=== PATIENT | female | born 1945 | race Caucasian/White ===

== ENCOUNTER 2018-09-10 18:26 | Emergency (ER) | payer MEDICARE, BC, SELFPAY ==
--- NOTE | 2018-09-10 18:50 | DI.RAD.S_ITS ---
PROCEDURE: XR ELBOW RT MIN 3V INDICATIONS: injury, pain TECHNIQUE: 3 views of the elbow were acquired. COMPARISON: None. FINDINGS: Bones: No fractures or dislocations. No suspicious bony lesions. Soft tissues: There is a small elbow joint effusion with elevation of the anterior fat pad. IMPRESSION: Small elbow joint effusion. No definite fracture is visualized. If pain persists, repeat study in 5-7 days is recommended to exclude occult fracture. Dictated by: Iris Scott M.D. on 09/10/2018 at 19:17 Approved by: Iris Scott M.D. on 09/10/2018 at 19:19
[2018-09-10 18:51] VITALS: BP 126/59; PULSE 87; RESP 18; TEMP 36.8; O2SAT 97
--- NOTE | 2018-09-10 18:51 | DI.RAD.S_ITS ---
PROCEDURE: XR HUMERUS RT 2V INDICATIONS: injury, pain TECHNIQUE: 2 views of the humerus were acquired. COMPARISON: None. FINDINGS: Bones: No fractures or dislocations. No suspicious bony lesions. Soft tissues: No suspicious soft tissue calcifications. IMPRESSION: No acute radiographic findings. If pain persists, repeat study in 5-7 days is recommended to exclude occult fracture. Dictated by: Iris Scott M.D. on 09/10/2018 at 19:16 Approved by: Iris Scott M.D. on 09/10/2018 at 19:17
--- NOTE | 2018-09-10 19:09 | ED.EXTPRO ---
HPI - Extremity Problem <ADELIA Aguillon - Last Filed: 09/10/18 21:59> General Chief complaint: Extremity Problem,Nontraumatic Stated complaint: thinks she broke her right arm Time Seen by Provider: 09/10/18 18:52 Source: patient Mode of arrival: ambulatory Limitations: no limitations History of Present Illness HPI Narrative: 72-year-old female with a history of hypertension is everyday smoker here for complaint of pain to her right arm. Pain is to the upper arm to the elbow and the wrist. She states that she was lifting a dog up into the truck when she accidentally slipped causing her to land up against the side of the cab of the truck onto her left arm. Increased pain with movement of the right arm. She denies any other injuries or concerns. MD Complaint: extremity pain Related Data Home Medications Medication Instructions Recorded Confirmed alprazolam 0.5 mg tablet 0.5 mg PO ONCE PRN 02/22/18 02/22/18 fluticasone 100 mcg-salmeterol 50 See Label Instructions INHALATION 02/22/18 02/22/18 mcg/dose blistr powdr for BID inhalation ipratropium 20 mcg-albuterol 100 1 puff INHALATION ONCE PRN gram 02/22/18 02/22/18 mcg/actuation mist for inhalation losartan 50 mg tablet 50 mg PO DAILY 02/22/18 02/22/18 metoprolol succinate ER 25 mg 25 mg PO BID tab 02/22/18 02/22/18 tablet,extended release 24 hr sertraline 100 mg tablet 100 mg PO DAILY 02/22/18 02/22/18 simvastatin 10 mg tablet 10 mg PO QPM 02/22/18 02/22/18 Allergies Allergy/AdvReac Type Severity Reaction Status Date / Time ciprofloxacin [From Cipro] Allergy Verified 09/10/18 18:54 meperidine [From Demerol] Allergy Verified 09/10/18 18:54 Review of Systems <ADELIA Aguillon - Last Filed: 09/10/18 21:59> Constitutional Denies chills, Denies fever(s), Denies lethargy and Denies weakness Eyes Denies change in vision, Denies eye discharge, Denies irritation and Denies loss of vision ENT Ears, Nose, Mouth, and Throat: Denies change in voice, Denies neck pain and Denies sore throat Cardiovascular Denies chest pain, Denies irregular heart rhythm, Denies lightheadedness, Denies palpitations, Denies dyspnea, Denies dyspnea on exertion and Denies orthopnea Respiratory Denies cough, Denies dyspnea, Denies dyspnea on exertion and Denies wheezing Gastrointestinal Gastrointestinal: Denies abdominal pain, Denies change in bowel habits, Denies diarrhea, Denies nausea and Denies vomiting Genitourinary Denies hematuria, Denies flank pain, Denies urinary incontinence and Denies urinary urgency Musculoskeletal Denies neck pain Comments: Right arm pain Integumentary/Breasts Denies pruritus, Denies erythema, Denies rash and Denies wounds Neurologic Denies confusion, Denies loss of vision and Denies weakness Psychiatric Denies anxiety, Denies confusion, Denies depression, Denies homicidal ideation and Denies suicidal ideation Endocrine Denies palpitations Hematologic/Lymphatic Denies easy bruising Allergic/Immunologic Denies wheezing Exam <ADELIA Aguillon - Last Filed: 09/10/18 21:59> Initial Vital Signs Initial Vital Signs: Vital Signs Temperature 98.2 F 09/10/18 18:51 Pulse Rate 87 09/10/18 18:51 Respiratory Rate 18 09/10/18 18:51 Blood Pressure 126/59 L 09/10/18 18:51 Pulse Oximetry 97 09/10/18 18:51 Const General: cooperative and well developed Nutritional Appearance: well nourished Orientation: alert, awake, oriented x3 and not confused [facility] Mouth: oral mucosae normal and moist mucous membranes Eyes Conjunctivae: conjunctivae normal Sclera: sclerae normal Pupils: PERRL EOM: EOM intact bilaterally Resp Effort & Inspection: normal respiratory effort, able to speak in complete sentences, no respiratory distress and no use of accessory muscles Auscultation: clear to auscultation bilaterally, no rales, no rhonchi and no wheezes Cardio Rate: regular rate Rhythm: regular rhythm Heart Sounds: no click, no gallops, no murmurs and no rubs Pulses: normal peripheral pulses Skin General: no rashes or lesions noted, No jaundice and No petechiae Neuro General: alert, oriented x3, gait normal and no focal motor deficits Speech: speech normal Extrem Other: Right arm with no signs of trauma. No swelling. No ecchymosis. No open lesions. Distal sensation is intact. Distal pulses are intact. Distal range of motion is intact. <DO Yumiko Hardy Last Filed: 09/10/18 23:35> Initial Vital Signs Initial Vital Signs: Vital Signs Temperature 98.2 F 09/10/18 18:51 Pulse Rate 87 09/10/18 18:51 Respiratory Rate 18 09/10/18 18:51 Blood Pressure 126/59 L 09/10/18 18:51 Pulse Oximetry 97 09/10/18 18:51 Course <ADELIA Aguillon - Last Filed: 09/10/18 21:59> Orders Ordered: ED Orders 09/10/18 18:50 XR elbow RT min 3V Stat 09/10/18 18:51 XR humerus RT 2V Stat 09/10/18 19:26 XR wrist RT 2V Stat Vital Signs - 8 hr 09/10/18 18:51 09/10/18 20:33 Temperature 98.2 F Pulse Rate 87 85 Respiratory Rate 18 18 Blood Pressure 126/59 L Blood Pressure [Left Arm] 139/68 Pulse Oximetry 97 96 <DO Yumiko Hardy Last Filed: 09/10/18 23:35> Orders Ordered: ED Orders 09/10/18 18:50 XR elbow RT min 3V Stat 09/10/18 18:51 XR humerus RT 2V Stat 09/10/18 19:26 XR wrist RT 2V Stat Vital Signs - 8 hr 09/10/18 18:51 09/10/18 20:33 Temperature 98.2 F Pulse Rate 87 85 Respiratory Rate 18 18 Blood Pressure 126/59 L Blood Pressure [Left Arm] 139/68 Pulse Oximetry 97 96 MDM - Extremity (Nontraumatic) <ADELIA Aguillon - Last Filed: 09/10/18 21:59> Imaging Data Humerus: Radiologist's impression: [address] [address] XRay Report Signed Patient: Mary Payan MR#: [id number] : 1945 Acct:[id number] Age/Sex: 72 / F Date of Service: 09/10/18 Loc: ED Accession Number: [id number] Procedure: XR humerus RT 2V Ordering Provider: Hawk Shea D.O. PROCEDURE: XR HUMERUS RT 2V INDICATIONS: injury, pain TECHNIQUE: 2 views of the humerus were acquired. COMPARISON: None. FINDINGS: Bones: No fractures or dislocations. No suspicious bony lesions. Soft tissues: No suspicious soft tissue calcifications. IMPRESSION: No acute radiographic findings. If pain persists, repeat study in 5-7 days is recommended to exclude occult fracture. Dictated by: Iris Scott M.D. on 09/10/2018 at 19:16 Approved by: Iris Scott M.D. on 09/10/2018 at 19:17 Right elbow : Radiologist's impression: [address] [address] XRay Report Signed Patient: Mary Payan MR#: [id number] : 1945 Acct:[id number] Age/Sex: 72 / F Date of Service: 09/10/18 Loc: ED Accession Number: [id number] Procedure: XR elbow RT min 3V Ordering Provider: Hawk Shea D.O. PROCEDURE: XR ELBOW RT MIN 3V INDICATIONS: injury, pain TECHNIQUE: 3 views of the elbow were acquired. COMPARISON: None. FINDINGS: Bones: No fractures or dislocations. No suspicious bony lesions. Soft tissues: There is a small elbow joint effusion with elevation of the anterior fat pad. IMPRESSION: Small elbow joint effusion. No definite fracture is visualized. If pain persists, repeat study in 5-7 days is recommended to exclude occult fracture. Dictated by: Iris Scott M.D. on 09/10/2018 at 19:17 Approved by: Iris Scott M.D. on 09/10/2018 at 19:19 [facility] Narrative Medical decision making narrative: X-ray of the right humerus. right elbow and right wrist were obtained and were negative for any acute fractures. Signs and symptoms presents as contusion to the right arm. [id number] Tylenol or Motrin as needed for any discomfort. Follow up with primary care provider in the next couple days. Return emergency room for any worsening symptoms. Discharge Plan Departure Patient Disposition: Home Clinical Impression: Arm pain, right Discharge Date/Time: 09/10/18 20:46 Interventions: ED Discharge Assessment Last Done: 09/10/18 20:46 Instructions: DI for Contusion Activity Restrictions/Additional Instructions: X-ray of the right humerus. right elbow and right wrist were obtained and were negative for any acute fractures. Signs and symptoms presents as contusion to the right arm. [id number] Tylenol or Motrin as needed for any discomfort. Follow up with primary care provider in the next couple days. Return emergency room for any worsening symptoms. Prescriptions: No Action losartan 50 mg tablet 50 mg PO DAILY RF: 0 sertraline 100 mg tablet 100 mg PO DAILY RF: 0 simvastatin 10 mg tablet 10 mg PO QPM RF: 0 alprazolam 0.5 mg tablet 0.5 mg PO ONCE PRN (Reason: Anxiety) RF: 0 metoprolol succinate 25 mg tablet extended release 24 hr 25 mg PO BID RF: 0 ipratropium-albuterol [Combivent Respimat] 20-100 mcg/actuation mist 1 puff INHALATION ONCE PRN (Reason: asthma) RF: 0 fluticasone-salmeterol [Advair Diskus] 100-50 mcg/dose blister with device See Patient Comments INHALATION BID RF: 0 Referrals: [facility] [Provider Group] <Hawk Shea DO - Last Filed: 09/10/18 23:35> [facility] ED Attending Shawna Attestation: I was immediately available in the department for consultation. Documentation has been reviewed. I agree with assessment and plan.
--- NOTE | 2018-09-10 19:26 | DI.RAD.S_ITS ---
PROCEDURE: XR WRIST RT 2V INDICATIONS: Pain to right wrist after slip TECHNIQUE: 2 views of the wrist were acquired. COMPARISON: None. FINDINGS: Bones: No fractures or dislocations. No suspicious bony lesions. There is an old non-unified ulnar styloid fracture or accessory ossicle. Soft tissues: No suspicious soft tissue calcifications. IMPRESSION: No acute radiographic findings. If pain persists, repeat study in 5-7 days is recommended to exclude occult fracture. Dictated by: Iris Scott M.D. on 09/10/2018 at 20:05 Approved by: Iris Scott M.D. on 09/10/2018 at 20:06
--- NOTE | 2018-09-10 20:16 | ED_ITS ---
HPI - Extremity Problem <ADELIA Aguillon - Last Filed: 09/10/18 21:59> General Chief complaint: Extremity Problem,Nontraumatic Stated complaint: thinks she broke her right arm Time Seen by Provider: 09/10/18 18:52 Source: patient Mode of arrival: ambulatory Limitations: no limitations History of Present Illness HPI Narrative: 72-year-old female with a history of hypertension is everyday smoker here for complaint of pain to her right arm. Pain is to the upper arm to the elbow and the wrist. She states that she was lifting a dog up into the truck when she accidentally slipped causing her to land up against the side of the cab of the truck onto her left arm. Increased pain with movement of the right arm. She denies any other injuries or concerns. MD Complaint: extremity pain Related Data Home Medications Medication Instructions Recorded Confirmed alprazolam 0.5 mg tablet 0.5 mg PO ONCE PRN 02/22/18 02/22/18 fluticasone 100 mcg-salmeterol 50 See Label Instructions INHALATION 02/22/18 mcg/dose blistr powdr for BID inhalation ipratropium 20 mcg-albuterol 100 1 puff INHALATION ONCE PRN gram 02/22/1802/22 mcg/actuation mist for inhalation losartan 50 mg tablet 50 mg PO DAILY 02/22/18 02/22/18 metoprolol succinate ER 25 mg 25 mg PO BID tab 02/22/18 02/22/18 tablet,extended release 24 hr sertraline 100 mg tablet 100 mg PO DAILY 02/22/18 02/22/18 simvastatin 10 mg tablet 10 mg PO QPM 02/22/18 02/22/18 Allergies Allergy/AdvReac Type Severity Reaction Status Date / Time ciprofloxacin [From Cipro] Allergy Verified 09/10/18 18:54 meperidine [From Demerol] Allergy Verified 09/10/18 18:54 Review of Systems <ADELIA Aguillon - Last Filed: 09/10/18 21:59> Constitutional Denies chills, Denies fever(s), Denies lethargy and Denies weakness Eyes Denies change in vision, Denies eye discharge, Denies irritation and Denies loss of vision ENT Ears, Nose, Mouth, and Throat: Denies change in voice, Denies neck pain and Denies sore throat Cardiovascular Denies chest pain, Denies irregular heart rhythm, Denies lightheadedness, Denies palpitations, Denies dyspnea, Denies dyspnea on exertion and Denies orthopnea Respiratory Denies cough, Denies dyspnea, Denies dyspnea on exertion and Denies wheezing Gastrointestinal Gastrointestinal: Denies abdominal pain, Denies change in bowel habits, Denies diarrhea, Denies nausea and Denies vomiting Genitourinary Denies hematuria, Denies flank pain, Denies urinary incontinence and Denies urinary urgency Musculoskeletal Denies neck pain Comments: Right arm pain Integumentary/Breasts Denies pruritus, Denies erythema, Denies rash and Denies wounds Neurologic Denies confusion, Denies loss of vision and Denies weakness Psychiatric Denies anxiety, Denies confusion, Denies depression, Denies homicidal ideation and Denies suicidal ideation Endocrine Denies palpitations Hematologic/Lymphatic Denies easy bruising Allergic/Immunologic Denies wheezing Exam <ADELIA Aguillon - Last Filed: 09/10/18 21:59> Initial Vital Signs Initial Vital Signs: Vital Signs Temperature 98.2 F 09/10/18 18:51 Pulse Rate 87 09/10/18 18:51 Respiratory Rate 18 09/10/18 18:51 Blood Pressure 126/59 L 09/10/18 18:51 Pulse Oximetry 97 09/10/18 18:51 Const General: cooperative and well developed Nutritional Appearance: well nourished Orientation: alert, awake, oriented x3 and not confused [facility] Mouth: oral mucosae normal and moist mucous membranes Eyes Conjunctivae: conjunctivae normal Sclera: sclerae normal Pupils: PERRL EOM: EOM intact bilaterally Resp Effort & Inspection: normal respiratory effort, able to speak in complete sentences, no respiratory distress and no use of accessory muscles Auscultation: clear to auscultation bilaterally, no rales, no rhonchi and no wheezes Cardio Rate: regular rate Rhythm: regular rhythm Heart Sounds: no click, no gallops, no murmurs and no rubs Pulses: normal peripheral pulses Skin General: no rashes or lesions noted, No jaundice and No petechiae Neuro General: alert, oriented x3, gait normal and no focal motor deficits Speech: speech normal Extrem Other: Right arm with no signs of trauma. No swelling. No ecchymosis. No open lesions. Distal sensation is intact. Distal pulses are intact. Distal range of motion is intact. <DO Yumiko Hardy Last Filed: 09/10/18 23:35> Initial Vital Signs Initial Vital Signs: Vital Signs Temperature 98.2 F 09/10/18 18:51 Pulse Rate 87 09/10/18 18:51 Respiratory Rate 18 09/10/18 18:51 Blood Pressure 126/59 L 09/10/18 18:51 Pulse Oximetry 97 09/10/18 18:51 Course <ADELIA Aguillon - Last Filed: 09/10/18 21:59> Orders Ordered: ED Orders 09/10/18 18:50 XR elbow RT min 3V Stat 09/10/18 18:51 XR humerus RT 2V Stat 09/10/18 19:26 XR wrist RT 2V Stat Vital Signs - 8 hr 09/10/18 18:51 09/10/18 20:33 Temperature 98.2 F Pulse Rate 87 85 Respiratory Rate 18 18 Blood Pressure 126/59 L Blood Pressure [Left Arm] 139/68 Pulse Oximetry 97 96 <DO Yumiko Hardy Last Filed: 09/10/18 23:35> Orders Ordered: ED Orders 09/10/18 18:50 XR elbow RT min 3V Stat 09/10/18 18:51 XR humerus RT 2V Stat 09/10/18 19:26 XR wrist RT 2V Stat Vital Signs - 8 hr 09/10/18 18:51 09/10/18 20:33 Temperature 98.2 F Pulse Rate 87 85 Respiratory Rate 18 18 Blood Pressure 126/59 L Blood Pressure [Left Arm] 139/68 Pulse Oximetry 97 96 MDM - Extremity (Nontraumatic) <ADELIA Aguillon - Last Filed: 09/10/18 21:59> Imaging Data Humerus: Radiologist's impression: [address] [address] XRay Report Signed Patient: Mary Payan MR#: [id number] : 1945 Acct:[id number] Age/Sex: 72 / F Date of Service: 09/10/18 Loc: ED Accession Number: [id number] Procedure: XR humerus RT 2V Ordering Provider: Hawk Shea D.O. PROCEDURE: XR HUMERUS RT 2V INDICATIONS: injury, pain TECHNIQUE: 2 views of the humerus were acquired. COMPARISON: None. FINDINGS: Bones: No fractures or dislocations. No suspicious bony lesions. Soft tissues: No suspicious soft tissue calcifications. IMPRESSION: No acute radiographic findings. If pain persists, repeat study in 5-7 days is recommended to exclude occult fracture. Dictated by: Iris Scott M.D. on 09/10/2018 at 19:16 Approved by: Iris Scott M.D. on 09/10/2018 at 19:17 Right elbow : Radiologist's impression: [address] [address] XRay Report Signed Patient: Mary Payan MR#: [id number] : 1945 Acct:[id number] Age/Sex: 72 / F Date of Service: 09/10/18 Loc: ED Accession Number: [id number] Procedure: XR elbow RT min 3V Ordering Provider: Hawk Shea D.O. PROCEDURE: XR ELBOW RT MIN 3V INDICATIONS: injury, pain TECHNIQUE: 3 views of the elbow were acquired. COMPARISON: None. FINDINGS: Bones: No fractures or dislocations. No suspicious bony lesions. Soft tissues: There is a small elbow joint effusion with elevation of the anterior fat pad. IMPRESSION: Small elbow joint effusion. No definite fracture is visualized. If pain persists, repeat study in 5-7 days is recommended to exclude occult fracture. Dictated by: Iris Scott M.D. on 09/10/2018 at 19:17 Approved by: Iris Scott M.D. on 09/10/2018 at 19:19 [facility] Narrative Medical decision making narrative: X-ray of the right humerus. right elbow and right wrist were obtained and were negative for any acute fractures. Signs and symptoms presents as contusion to the right arm. Ovru-pbq-nrizczp Tylenol or Motrin as needed for any discomfort. Follow up with primary care provider in the next couple days. Return emergency room for any worsening symptoms. Discharge Plan Departure Patient Disposition: Home Clinical Impression: Arm pain, right Discharge Date/Time: 09/10/18 20:46 Interventions: ED Discharge Assessment Last Done: 09/10/18 20:46 Instructions: DI for Contusion Activity Restrictions/Additional Instructions: X-ray of the right humerus. right elbow and right wrist were obtained and were negative for any acute fractures. Signs and symptoms presents as contusion to the right arm. Rrfs-idj-eyoveek Tylenol or Motrin as needed for any discomfort. Follow up with primary care provider in the next couple days. Return emergency room for any worsening symptoms. Prescriptions: No Action losartan 50 mg tablet 50 mg PO DAILY RF: 0 sertraline 100 mg tablet 100 mg PO DAILY RF: 0 simvastatin 10 mg tablet 10 mg PO QPM RF: 0 alprazolam 0.5 mg tablet 0.5 mg PO ONCE PRN (Reason: Anxiety) RF: 0 metoprolol succinate 25 mg tablet extended release 24 hr 25 mg PO BID RF: 0 ipratropium-albuterol [Combivent Respimat] 20-100 mcg/actuation mist 1 puff INHALATION ONCE PRN (Reason: asthma) RF: 0 fluticasone-salmeterol [Advair Diskus] 100-50 mcg/dose blister with device See Patient Comments INHALATION BID RF: 0 Referrals: [facility] [Provider Group] <Hawk Shea DO - Last Filed: 09/10/18 23:35> [facility] ED Attending Shawna Attestation: I was immediately available in the department for consultation. Documentation has been reviewed. I agree with assessment and plan.
[2018-09-10 20:33] VITALS: BP 139/68; PULSE 85; RESP 18; O2SAT 96
== END 2018-09-10 20:46 | disposition home or self-care (01) ==
PROVIDERS: Emergency Provider Nurse Practitioner Family
DX: M79.601 Pain in right arm (principal); W19.XXXA Unspecified fall, initial encounter
CPT/HCPCS: 73060; 73080; 73100; 99282; 99283

== ENCOUNTER 2018-10-21 10:45 | Emergency (ER) | payer MEDICARE, BC, SELFPAY ==
[2018-10-21 11:02] VITALS: BP 165/66; PULSE 76; RESP 16; TEMP 36.6; O2SAT 95; BMI 28.1
--- NOTE | 2018-10-21 11:47 | DI.CT.S_ITS ---
PROCEDURE: CT ABDOMEN PELVIS W CON INDICATIONS: has ileostomy, having new diarrhea 1/2 cup rectally, abd theodore TECHNIQUE: After the administration of oral and intravenous contrast, 5 mm thick sections acquired from the diaphragms to the symphysis. 5 mm thick coronal and sagittal reformats were performed. For radiation dose reduction, the following was used: automated exposure control, adjustment of mA and/or kV according to patient size. COMPARISON: None. FINDINGS: Image quality: Excellent. ABDOMEN: Lung bases: Lung bases are clear. Heart size is normal. Solid organs: Liver is normal in size and enhancement. Gallbladder is surgically absent.. Biliary system is non-dilated. Pancreas enhances normally. Spleen is normal in size and enhancement. No adrenal nodules. Kidneys are normal in size and enhancement, without hydronephrosis. Peritoneum and bowel: Stomach, small bowel, and colon loops are normal in caliber and wall thickness. There is sigmoid diverticulosis without evidence of diverticulitis. No free fluid or air. No abscess cavity. Nodes and vessels: No retroperitoneal or mesenteric adenopathy. Aorta and inferior vena cava are normal in caliber. Miscellaneous: There is a midline ventral hernia approximately 5 cm above the umbilicus containing bowel. The bowel is nonobstructive. The abdominal wall defect measures approximately 3.5 cm. There is also a small periumbilical hernia containing fat, with no abdominal wall defect measuring 1.5 cm. There is an ileostomy present. Deep to the ileostomy is abdominal wall defect measuring 3.7 cm, with numerous loops of small bowel herniated through the defect into the subcutaneous tissues. These are also nonobstructive. PELVIS: Genitourinary: Bladder wall thickness is normal. Miscellaneous: No inguinal hernias or adenopathy. Remote hysterectomy. Bones: No suspicious bony lesions. No vertebral body compression fractures. IMPRESSION: 1. Midline ventral hernia containing small bowel which is nonobstructed, approximately 5 cm above the umbilicus. 2. Small periumbilical hernia containing fat. 3. Ileostomy in place. Deep to the ileostomy are extensive nonobstructed loops of small bowel which have herniated through a left abdominal wall defect. 4. Sigmoid diverticulosis without evidence of diverticulitis. 5. Remote cholecystectomy and hysterectomy. Dictated by: Abner Mortensen M.D. on 10/21/2018 at 13:35 Approved by: Abner Mortensen M.D. on 10/21/2018 at 13:41
--- NOTE | 2018-10-21 11:52 | ED_ITS ---
HPI - Abdominal Pain General Chief Complaint: Abdominal Pain Stated Complaint: RECTUM PROBLEMS Time Seen by Provider: 10/21/18 11:03 Source: patient Mode of arrival: ambulatory Limitations: no limitations History of Present Illness HPI narrative: This is a 72-year-old female comes to the emergency department with complaint of abdominal pain. States lower abdomen sort of crampy. She states that she has had a little bit of diarrhea 2 or 3 times yesterday about a half to a quarter cup from the rectum. Patient has had a very small amount as well today. Patient has had some nausea but no persistent vomiting. She has an ileostomy in place. She states she has had output although decreased overnight. Patient states she has not noticed any black or bloody stool from the ileostomy or the rectum. No fevers. No chest pain or shortness of breath. 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 This was placed 3 years ago. Patient follows with Dr. Casey. She states that she also has multiple hernias although none have been come particularly tender or painful. She denies any issues with urination. no vaginal bleeding or discharge. Related Data Home Medications Medication Instructions Recorded Confirmed alprazolam 0.5 mg tablet 0.5 mg PO QID 02/22/18 10/21/18 fluticasone 100 mcg-salmeterol 50 1 puff INHALATION BID 02/22/18 10/21/18 mcg/dose blistr powdr for inhalation ipratropium 20 mcg-albuterol 100 1 puff INHALATION ONCE PRN gram 02/22/18 10/21/18 mcg/actuation mist for inhalation losartan 50 mg tablet 50 mg PO DAILY 02/22/18 10/21/18 sertraline 100 mg tablet 100 mg PO DAILY 02/22/18 10/21/18 simvastatin 10 mg tablet 10 mg PO QPM 02/22/18 10/21/18 metoprolol tartrate 25 mg PO BID 10/21/18 10/21/18 Previous Rx's Medication Instructions Recorded hydrocodone-acetaminophen [[place]] 1 tab PO Q6H PRN #10 tab 10/21/18 Allergies Allergy/AdvReac Type Severity Reaction Status Date / Time ciprofloxacin [From Cipro] Allergy Verified 10/21/18 11:02 meperidine [From Demerol] Allergy Verified 10/21/18 11:02 Review of Systems Review of Systems ROS Unobtainable: All systems reviewed & are unremarkable except as noted in HPI and below Constitutional Denies chills, Denies fever(s), Denies lethargy and Denies weakness Cardiovascular Denies chest pain and Denies dyspnea Respiratory Denies cough and Denies dyspnea Gastrointestinal Gastrointestinal: Reports abdominal pain, Denies melena, Denies hematochezia, Reports change in bowel habits, Denies constipation, Reports cramping ( Lower abdomen), Reports diarrhea, Reports nausea and Denies vomiting Genitourinary Denies hematuria, Denies dysuria, Denies flank pain, Denies urinary incontinence and Denies urinary urgency Integumentary/Breasts Denies other (no signs of infection/skin breakdown at stoma) Neurologic Denies weakness [facility] Medical History Asthma (Chronic) HTN (hypertension) (Chronic) Ileostomy present (Chronic) H/O: hysterectomy (Resolved) Surgical History Hx laparoscopic cholecystectomy (Resolved) Family History Mother Hypertension Stroke Brother Cancer Hypertension Social History marital status: household members: spouse Smoking Status: Current every day smoker Family History Mother Hypertension Stroke Brother Cancer Hypertension Social History marital status: household members: spouse Smoking Status: Current every day smoker Exam Narrative Exam Narrative: GENERAL: Alert and oriented x three, well-nourished, well- appearing female in mild distress. HEENT: Head normocephalic, atraumatic, EOMI, pupils reactive, face symmetric, moist mucous membranes NECK: Supple, full range of motion CARDIOVASCULAR: Regular rate and rhythm without murmurs, rubs or gallops. RESPIRATORY: Breath sounds equal bilaterally, no wheezes rales or rhonchi. ABDOMEN: Soft, Mild generalized tenderness. Patient has ileostomy at the right lower quadrant that appears clean, dry with brownish thin stool. No black or blood noted. No signs of erythema or infection surrounding the site. Normoactive bowel sounds all 4 quadrants. No guarding or rebound, rigidity, no mass : No CVA tenderness EXTREMITIES: Normal range of motion, no clubbing or edema. Neurovascularly intact NEUROLOGICAL: Cranial nerves II through XII grossly intact. Moving all extremities SKIN: Warm, dry, no petechiae, no rashes or lesions. Initial Vital Signs Initial Vital Signs: Vital Signs Temperature 97.9 F 10/21/18 11:02 Pulse Rate 76 10/21/18 11:02 Respiratory Rate 16 10/21/18 11:02 Blood Pressure 165/66 H 10/21/18 11:02 Pulse Oximetry 95 10/21/18 11:02 Course Orders Ordered: ED Orders 10/21/18 11:47 CT abdomen pelvis w con Stat 10/21/18 12:05 Complete Blood Count AUTO DIFF Stat Comprehensive Metabolic Panel Stat Lactate (Lactic Acid) Stat Lipase Stat Discontinued Medications Sodium Chloride (Normal Saline 0.9%) 1,000 mls @ 1,000 mls/hr IV BOLUS ONE Stop: 10/21/18 12:46 Last Infusion: 10/21/18 14:19 Dose: 0 mls/hr Admin: 10/21/18 12:34 Dose: 1,000 mls/hr Morphine Sulfate (Morphine) 4 mg IV NOW ONE Stop: 10/21/18 13:16 Last Admin: 10/21/18 14:18 Dose: 4 mg Ondansetron HCl (Zofran) 4 mg IV NOW ONE Stop: 10/21/18 13:16 Last Admin: 10/21/18 13:16 Dose: 4 mg Vital Signs - 8 hr 10/21/18 11:02 10/21/18 12:08 10/21/18 12:37 Temperature 97.9 F Pulse Rate 76 69 64 Respiratory Rate 16 15 17 Blood Pressure 165/66 H Blood Pressure [Right Arm] 146/73 H 137/65 Pulse Oximetry 95 96 98 10/21/18 14:43 10/21/18 15:10 Temperature Pulse Rate 65 65 Respiratory Rate 16 14 Blood Pressure 117/59 L Blood Pressure [Right Arm] 117/59 L Pulse Oximetry 98 98 MDM - Abdominal Pain Lab Data Attestation: I reviewed the patient's lab results. Result diagrams: 10/21/18 12:05 10/21/18 12:05 Lab Results 10/21/18 10/21/18 10/21/18 Range/Units 12:05 12:05 12:05 WBC 7.7 (4.5-11.0) X10^3/uL RBC 4.02 (4.0-5.2) X10^6/uL Hgb 12.5 (12.0-16.0) g/dL Hct 36.7 (36-46) % MCV 91.4 (80-100) fL MCH 31.0 (26-34) PG MCHC 34.0 (30-36) % RDW 13.4 (11.6-14.8) % Plt Count 250 (150-400) X10^3/uL Neut % (Auto) 77.3 H (50-75) % Lymph % (Auto) 16.9 L (25-40) % [place] % (Auto) 4.9 (3-14) % Eos % (Auto) 0.4 L (2-4) % Baso % (Auto) 0.5 (0-2) % Neut # (Auto) 6000 (6547-1269) /uL Lymph # (Auto) 1300 (3412-8408) /uL [place] # (Auto) 400 (0-900) /uL Eos # (Auto) 0 (0-450) /uL Baso # (Auto) 0 (0-100) /uL Sodium 139 (137-145) mmol/L Potassium 4.1 (3.4-5.1) mmol/L Chloride 104 (98-107) mmol/L Carbon Dioxide 24 (22-32) mmol/L BUN 4 L (7-17) mg/dL Creatinine 0.60 (0.52-1.04) mg/dL Estimated GFR > 60.0 (>60) mL/min BUN/Creatinine Ratio 6.7 (6-22) Glucose 96 (80-110) mg/dL Lactate 1.4 (0.7-2.1) mmol/L Calcium 9.2 (8.4-10.2) mg/dL Total Bilirubin 0.5 (0.2-1.3) mg/dL AST 18 (14-36) IU/L ALT 19 (9-52) IU/L Alkaline Phosphatase 84 (38-126) U/L Total Protein 7.7 (6.3-8.2) g/dL Albumin 4.6 (3.5-5.0) g/dL Globulin 3.1 (1.7-4.1) g/dL Albumin/Globulin Ratio 1.5 (1.0-2.8) Lipase 27 (23-300) U/L Point of care testing: Urine Dip Bedside Urine Glucose Negative Bedside Urine Bilirubin - Negative Bedside Urine Ketone - Negative Urine Specific [place] 1.015 Bedside Urine Occult Blood +/- Bedside Urine pH 6.0 Bedside Urine Protein - Negative Bedside Urine Urobilinogen - Negative Bedside Urine Nitrite - Negative Bedside Urine Leukocytes - Negative Esterase Imaging Data CT scan - abdomen: Radiologist's impression: 16 Maribel Myers DO Find Patient Imaging Mary Payan 72 F 1945 ACTIVITY DATE EXAM STATUS AUTHOR 10/21/18 11:[address] [address] [address] Scan Report Signed Patient: Mary Payan DMR#: [id number] : 8Acct:[id number] Age/Sex: 72 / FDate of Service: 10/21/18 Loc: ED Accession Number: [id number] Procedure: CT abdomen pelvis w con Ordering Provider: Maribel Myers D.O. PROCEDURE: CT ABDOMEN PELVIS W CON INDICATIONS: has ileostomy, having new diarrhea 1/2 cup rectally, abd theodore TECHNIQUE: After the administration of oral and intravenous contrast, 5 mm thick sections acquired from the diaphragms to the symphysis. 5 mm thick coronal and sagittal reformats were performed. For radiation dose reduction, the following was used: automated exposure control, adjustment of mA and/or kV according to patient size. COMPARISON: None. FINDINGS: Image quality: Excellent. ABDOMEN: Lung bases: Lung bases are clear. Heart size is normal. Solid organs: Liver is normal in size and enhancement. Gallbladder is surgi jennifer absent.. Biliary system is non-dilated. Pancreas enhances normally. Spleen is normal in size and enhancement. No adrenal nodules. Kidneys are normal in size and enhancement, without hydronephrosis. Peritoneum and bowel: Stomach, small bowel, and colon loops are normal in caliber and wall thickness. There is sigmoid diverticulosis without evidence of diverticulitis. No free fluid or air. No abscess cavity. Nodes and vessels: No retroperitoneal or mesenteric adenopathy. Aorta and inferior vena cava are normal in caliber. Miscellaneous: There is a midline ventral hernia approximately 5 cm above the umbilicus containing bowel. The bowel is nonobstructive. The abdominal wall defect measures approximately 3.5 cm. There is also a small periumbilical hernia containing fat, with no abdominal wall defect measuring 1.5 cm. There is an ileostomy present. Deep to the ileostomy is abdominal wall defect measuring 3.7 cm, with numerous loops of small bowel herniated through the defect into the subcutaneous tissues. These are also nonobstructive. PELVIS: Genitourinary: Bladder wall thickness is normal. Miscellaneous: No inguinal hernias or adenopathy. Remote hysterectomy. Bones: No suspicious bony lesions. No vertebral body compression fractures. IMPRESSION: 1. Midline ventral hernia containing small bowel which is nonobstructed, appr oximately 5 cm above the umbilicus. 2. Small periumbilical hernia containing fat. 3. Ileostomy in place. Deep to the ileostomy are extensive nonobstructed loops of small bowel which have herniated through a left abdominal wall defect. 4. Sigmoid diverticulosis without evidence of diverticulitis. 5. Remote cholecystectomy and hysterectomy. Dictated by: Abner Mortensen M.D. on 10/21/2018 at 13:35 Approved by: Abner Mortensen M.D. on 10/21/2018 at 13:41 MDM Narrative Medical decision making narrative: Patient's abdominal pain was significantly improved with morphine. Her nausea also improved quite a bit with Zofran. Patient's CT shows small bowel in hernia but no signs of obstruction. There is no signs of proctitis or inflammation along the bowel. No signs of perforation or other acute intra-abdominal process. I spoke with Dr. Camarillo, plan for patient to follow up with primary care. Patient was not able to give a stool sample rectally but was given a specimen cup in case she is able to get 1 at home. Discharge Plan Departure Patient Disposition: Home Clinical Impression: Abdominal pain, Ileostomy in place Discharge Date/Time: 10/21/18 15:00 Interventions: ED Discharge Assessment Last Done: 10/21/18 15:10 Instructions: DI for Abdominal Pain-Adult Activity Restrictions/Additional Instructions: Follow up with Dr. Casey in the next week for recheck. Call for an appointment. Continue home medications as prescribed. You may take tylenol up to 1000mg every 8 hours as needed for pain. Return to the ER for fevers greater than 100.4F, persistent vomiting, black or bloody stools, worsening abdominal pain, if you are having no output from your ileostomy or other new or concerning symptoms. Prescriptions: New hydrocodone-acetaminophen [[place]] 5-325 mg tablet 1 tab PO Q6H PRN (Reason: pain) Qty: 10 RF: 0 No Action losartan 50 mg tablet 50 mg PO DAILY RF: 0 sertraline 100 mg tablet 100 mg PO DAILY RF: 0 simvastatin 10 mg tablet 10 mg PO QPM RF: 0 alprazolam 0.5 mg tablet 0.5 mg PO QID RF: 0 ipratropium-albuterol [Combivent Respimat] 20-100 mcg/actuation mist 1 puff INHALATION ONCE PRN (Reason: asthma) RF: 0 fluticasone-salmeterol [Advair Diskus] 100-50 mcg/dose blister with device 1 puff Inhalation BID RF: 0 metoprolol tartrate 25 mg tablet 25 mg PO BID RF: 0 Referrals: Kate Casey MD [Physician] - Gordon Anderson MD [Primary Care Provider] -
[2018-10-21 12:08] VITALS: BP 146/73; PULSE 69; RESP 15; O2SAT 96
--- NOTE | 2018-10-21 12:24 | PC.NURSE ---
Pt started on oral contrast at 1220
[2018-10-21 12:25] LABS: Add Manual Diff / Slide Review NO; Basophils Absolute Auto 0 /uL (0-100); Basophils Percent Auto 0.5 % (0-2); Eosinophils Absolute Auto 0 /uL (0-450); Eosinophils Percent Auto 0.4 % (2-4); Hematocrit 36.7 % (36-46); Hemoglobin 12.5 g/dL (12.0-16.0); Lymphocytes Absolute Auto 1300 /uL (1100-4500); Lymphocytes Percent Auto 16.9 % (25-40); Mean Corpuscular Volume 91.4 fL (80-100); Monocytes Absolute Auto 400 /uL (0-900); Monocytes Percent Auto 4.9 % (3-14); Neutrophils Absolute Auto 6000 /uL (1500-7000); Neutrophils Percent Auto 77.3 % (50-75); Platelet Count 250 X10^3/uL (150-400); Red Blood Cell Count 4.02 X10^6/uL (4.0-5.2); Red Cell Distribution Width 13.4 % (11.6-14.8); White Blood Cell Count 7.7 X10^3/uL (4.5-11.0)
[2018-10-21] MEDS: SODIUM CHLORIDE 0.9% 1,000 ML 1000 ML IV (12:34)
[2018-10-21 12:36] LABS: Alanine Aminotransferase 19 IU/L (9-52); Albumin 4.6 g/dL (3.5-5.0); Albumin Globulin Ratio 1.5 (1.0-2.8); Alkaline Phosphatase 84 U/L (38-126); Aspartate Aminotransferase 18 IU/L (14-36); BUN Creatinine Ratio 6.7 (6-22); Bilirubin Total 0.5 mg/dL (0.2-1.3); Blood Urea Nitrogen 4 mg/dL (7-17); Calcium 9.2 mg/dL (8.4-10.2); Carbon Dioxide 24 mmol/L (22-32); Chloride 104 mmol/L (98-107); Estimated Glomerular Filt Rate > 60.0 mL/min (>60); Globulin 3.1 g/dL (1.7-4.1); Glucose 96 mg/dL (80-110); HEMOLYSIS < 15 (0-50); Lipase 27 U/L (23-300); Potassium 4.1 mmol/L (3.4-5.1); Sodium 139 mmol/L (137-145); Total Protein 7.7 g/dL (6.3-8.2)
[2018-10-21 12:37] VITALS: BP 137/65; PULSE 64; RESP 17; O2SAT 98
[2018-10-21 12:37] LABS: Lactate (Lactic Acid) 1.4 mmol/L (0.7-2.1)
[2018-10-21] MEDS: ONDANSETRON 4 MG/2 ML INJ IV (13:16)
[2018-10-21] MEDS: MORPHINE 4 MG/ML INJ IV (14:18)
[2018-10-21 14:43] VITALS: BP 117/59; PULSE 65; RESP 16; O2SAT 98
--- NOTE | 2018-10-21 14:55 | PC.NURSE ---
I agree with all assessments and treatments completed by Student nurse. I was available to assist and monitored all treatments.
[2018-10-21 15:10] VITALS: BP 117/59; PULSE 65; RESP 14; O2SAT 98
== END 2018-10-21 15:00 | disposition home or self-care (01) ==
PROVIDERS: Emergency Provider Emergency Medicine; PCP Specialist
DX: R10.9 Unspecified abdominal pain (principal); Z93.2 Ileostomy status
CPT/HCPCS: 36591; 74177; 80053; 81003; 83605; 83690; 85025; 96361; 96374; 96375; 99283; 99285; J2270; J2405; Q9967

== ENCOUNTER → 2018-11-17 10:45 | Outpatient (CLI) | payer MEDICARE, BC, SELFPAY ==
[2018-11-17 17:06] LABS: Clostridium Difficile Tox PCR Negative for C. diff
[2018-11-23 20:37] LABS: Calprotectin, Stool 742.9 mcg/g
== END ==
PROVIDERS: PCP Specialist; Visit Provider Internal Medicine Gastroenterology
DX: R19.7 Diarrhea, unspecified (principal)
CPT/HCPCS: 82656; 83993; 87493

== ENCOUNTER 2018-11-18 21:47 | Emergency (ER) | payer MEDICARE, BC, SELFPAY ==
[2018-11-18 22:22] VITALS: BP 101/56; PULSE 119; RESP 17; TEMP 38.1; O2SAT 99
--- NOTE | 2018-11-18 23:45 | DI.CT.S_ITS ---
PROCEDURE: CT ABDOMEN PELVIS W CON INDICATIONS: pain, rectal discharge with ileostomy TECHNIQUE: After the administration of oral and intravenous contrast, 5 mm thick sections acquired from the diaphragms to the symphysis. 5 mm thick coronal and sagittal reformats were performed. For radiation dose reduction, the following was used: automated exposure control, adjustment of mA and/or kV according to patient size. COMPARISON: [facility], CT, CT ABDOMEN PELVIS W CON, 10/21/2018, 13:00. FINDINGS: Image quality: Excellent. ABDOMEN: Lung bases: Lung bases are clear. Heart size is normal. Solid organs: Liver is normal in size and enhancement. Gallbladder is surgically absent. Biliary system is non-dilated. Pancreas enhances normally. Spleen is normal in size and enhancement. No adrenal nodules. Kidneys are normal in size and enhancement, without hydronephrosis. Peritoneum and bowel: Right lower quadrant ileostomy is stable in appearance. Large right lower quadrant ileostomy peristomal hernia which contains multiple unremarkable appearing loops of small bowel is stable compared to 10/21/2018. Small ventral midline supraumbilical hernia which contains unremarkable appearing loop of small bowel is stable compared to the prior exam. Circumferential wall thickening with mild adjacent inflammatory stranding noted throughout the colon with nonspecific colitis. Scattered diverticula noted in the colon without evidence of diverticulitis. Anastomotic suture is noted in the transverse colon which are stable in appearance. No free intraperitoneal fluid or air. Nodes and vessels: No retroperitoneal or mesenteric adenopathy. Aorta and inferior vena cava are normal in caliber. Miscellaneous: No ventral hernias. PELVIS: Genitourinary: Bladder wall thickness is normal. Uterus is absent. Miscellaneous: No inguinal hernias or adenopathy. Bones: No suspicious bony lesions. No vertebral body compression fractures. IMPRESSION: 1. Circumferential colonic wall thickening compatible with nonspecific pancolitis. 2. Status post right lower quadrant ileostomy. 3. Large right lower quadrant ileostomy peristomal hernia and ventral midline supraumbilical hernia which contains unremarkable appearing loops of bowel are stable in appearance. 4. Sigmoid colon diverticulosis without evidence of diverticulitis. Dictated by: Sonya Moyer MD, PhD on 11/19/2018 at 8:35 Approved by: Sonya Moyer MD, PhD on 11/19/2018 at 8:42
--- NOTE | 2018-11-18 23:47 | ED.NAVMDI ---
HPI - Nausea/Vomiting/Diarrhea General Chief complaint: Nausea/Vomiting/Diarrhea Stated complaint: STOMACH PAIN LOW Time Seen by Provider: 11/18/18 23:35 History of Present Illness HPI Narrative: patient is 72-year-old female with history of ileostomy presenting with diarrhea. She says that she has had some diarrhea as and mucus from her rectum. 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 She has a nurse aide evaluator at [facility]. She was seen evaluated him last week and has another appointment with him next week. He is supposed to do a colonoscopy. His however today she did notice some blood she was instructed if she had blood to go to the ER. She is noted to have fever and tachycardic. She says she is does not know when the fever started but she has had overall body aches and pains. She feels nauseated at times MD complaint: nausea, diarrhea and abdominal pain Description of Vomiting: bloody Related Data Home Medications Medication Instructions Recorded Confirmed alprazolam 0.5 mg tablet 0.5 mg PO QID 02/22/18 10/21/18 fluticasone 100 mcg-salmeterol 50 1 puff INHALATION BID 02/22/18 10/21/18 mcg/dose blistr powdr for inhalation ipratropium 20 mcg-albuterol 100 1 puff INHALATION ONCE PRN gram 02/22/18 10/21/18 mcg/actuation mist for inhalation losartan 50 mg tablet 50 mg PO DAILY 02/22/18 10/21/18 sertraline 100 mg tablet 100 mg PO DAILY 02/22/18 10/21/18 simvastatin 10 mg tablet 10 mg PO QPM 02/22/18 10/21/18 metoprolol tartrate 25 mg PO BID 10/21/18 10/21/18 Previous Rx's Medication Instructions Recorded hydrocodone-acetaminophen [Toppenish] 1 tab PO Q6H PRN #10 tab 10/21/18 hydrocodone-acetaminophen [Toppenish] 1 tab PO Q6HR PRN #10 tab 11/19/18 levofloxacin [Levaquin] 750 mg PO DAILY #7 tab 11/19/18 metronidazole [Flagyl] 500 mg PO TID #21 tab 11/19/18 Allergies Allergy/AdvReac Type Severity Reaction Status Date / Time ciprofloxacin [From Cipro] Allergy Verified 02/15/19 11:02 meperidine [From Demerol] Allergy Verified 10/21/18 11:02 Review of Systems Review of Systems ROS Unobtainable: All systems reviewed & are unremarkable except as noted in HPI and below Constitutional Reports body ache(s), Reports chills and Reports fever(s) Cardiovascular Denies chest pain, Denies irregular heart rhythm, Denies lightheadedness, Denies palpitations, Denies dyspnea, Denies dyspnea on exertion and Denies orthopnea Respiratory Denies cough, Denies dyspnea, Denies dyspnea on exertion and Denies wheezing Gastrointestinal Gastrointestinal: Reports as per HPI, Reports abdominal pain and Reports diarrhea Musculoskeletal Denies back pain, Denies muscle weakness, Denies numbness and Denies tingling Integumentary/Breasts Denies pruritus, Denies erythema, Denies rash and Denies wounds Neurologic Denies numbness and Denies tingling Endocrine Denies palpitations Allergic/Immunologic Denies wheezing PFSH Medical History Asthma (Chronic) HTN (hypertension) (Chronic) Ileostomy present (Chronic) H/O: hysterectomy (Resolved) Surgical History Hx laparoscopic cholecystectomy (Resolved) Family History Mother Hypertension Stroke Brother Cancer Hypertension Social History marital status: household members: spouse Smoking Status: Current every day smoker Family History Mother Hypertension Stroke Brother Cancer Hypertension Social History marital status: household members: spouse Smoking Status: Current every day smoker Exam Initial Vital Signs Initial Vital Signs: Vital Signs Temperature 100.6 F H 11/18/18 22:22 Pulse Rate 119 H 11/18/18 22:22 Respiratory Rate 17 11/18/18 22:22 Blood Pressure 101/56 L 11/18/18 22:22 Pulse Oximetry 99 11/18/18 22:22 GENERAL: Alert female appears to not feel well HEENT: Head atraumatic,EOMI, pupils reactive, CARDIOVASCULAR: Regular rate and rhythm without murmurs, rubs or gallops. RESPIRATORY: Breath sounds equal bilaterally, no wheezes rales or rhonchi. ABDOMEN: Soft, ileostomy noted brown stool in bag stump pink [Hemoccult-positive, no hemorrhoids, nontender] : No CVA tenderness EXTREMITIES: Normal range of motion, no clubbing or edema. Neurovascularly intact NEUROLOGICAL: Alert and oriented x4.Normal gait and speech. Cranial nerves II through XII grossly intact. SKIN: Warm, dry, no laceration, no petechiae, no rashes or lesions. Course Orders Ordered: ED Orders 11/18/18 23:20 Complete Blood Count AUTO DIFF Stat Comprehensive Metabolic Panel Stat Lactate (Lactic Acid) Stat Lipase Stat Procalcitonin Stat 11/18/18 23:40 Influenza A and B by PCR Rapid Stat 11/18/18 23:45 CT abdomen pelvis w con Stat 11/19/18 02:10 Urine Culture Stat Urine Microscopic Stat Discontinued Medications Hydrocodone Bitart/Acetaminophen (Vicodin Prepack) 1 bottle MISC SEEINSTR ONE Stop: 11/19/18 02:57 Last Admin: 11/19/18 03:10 Dose: 1 bottle Hydromorphone HCl (Dilaudid) 0.5 mg IV NOW ONE Stop: 11/18/18 23:46 Last Admin: 11/19/18 00:00 Dose: 0.5 mg Hydromorphone HCl (Dilaudid) 0.5 mg IV NOW ONE Stop: 11/19/18 02:57 Last Admin: 11/19/18 03:11 Dose: 0.5 mg Sodium Chloride (Normal Saline 0.9%) 2,313.33 mls @ 771.11 mls/hr 30 ml/kg infuse over 3 hr (2313.33 ml) IV NOW ONE Stop: 11/19/18 02:44 Levofloxacin (Levaquin) 750 mg PO NOW ONE Stop: 11/19/18 02:57 Last Admin: 11/19/18 03:11 Dose: 750 mg Metronidazole (Metronidazole) 500 mg PO NOW ONE Stop: 11/19/18 02:57 Last Admin: 11/19/18 03:10 Dose: 500 mg Vital Signs - 8 hr 11/19/18 00:24 11/19/18 02:43 Pulse Rate 82 87 Respiratory Rate 14 17 Blood Pressure [Left Arm] 113/70 102/57 L Pulse Oximetry 96 MDM - Nausea/Vomiting/Diarrhea Lab Data Attestation: I reviewed the patient's lab results. Result diagrams: 11/18/18 23:20 11/18/18 23:20 Lab Results 11/18/18 11/18/18 11/18/18 Range/Units 23:20 23:20 23:20 WBC 8.2 (4.5-11.0) X10^3/uL RBC 3.63 L (4.0-5.2) X10^6/uL Hgb 11.1 L (12.0-16.0) g/dL Hct 32.4 L (36-46) % MCV 89.5 (80-100) fL MCH 30.6 (26-34) PG MCHC 34.2 (30-36) % RDW 13.2 (11.6-14.8) % Plt Count 256 (150-400) X10^3/uL Neut % (Auto) 66.9 (50-75) % Lymph % (Auto) 17.6 L (25-40) % Posey % (Auto) 14.8 H (3-14) % Eos % (Auto) 0.4 L (2-4) % Baso % (Auto) 0.3 (0-2) % Neut # (Auto) 5500 (9171-4240) /uL Lymph # (Auto) 1400 (9465-7944) /uL Posey # (Auto) 1200 H (0-900) /uL Eos # (Auto) 0 (0-450) /uL Baso # (Auto) 0 (0-100) /uL Sodium (137-145) mmol/L Potassium (3.4-5.1) mmol/L Chloride (98-107) mmol/L Carbon Dioxide (22-32) mmol/L BUN (7-17) mg/dL Creatinine (0.52-1.04) mg/dL Estimated GFR (>60) mL/min BUN/Creatinine Ratio (6-22) Glucose (80-110) mg/dL Lactate (0.7-2.1) mmol/L Calcium (8.4-10.2) mg/dL Total Bilirubin (0.2-1.3) mg/dL AST (14-36) IU/L ALT (9-52) IU/L Alkaline Phosphatase (38-126) U/L Total Protein (6.3-8.2) g/dL Albumin (3.5-5.0) g/dL Globulin (1.7-4.1) g/dL Albumin/Globulin Ratio (1.0-2.8) Lipase 21 L (23-300) U/L Procalcitonin < 0.05 (<0.5) ng/mL Urine RBC (0-5/HPF) Urine WBC (0-5/HPF) Ur Squamous Epith Cells Urine Bacteria (None) Ur Culture Indicated? Influenza A & B (PCR) (Negative) 11/18/18 11/18/18 11/18/18 Range/Units 23:20 23:20 23:40 WBC (4.5-11.0) X10^3/uL RBC (4.0-5.2) X10^6/uL Hgb (12.0-16.0) g/dL Hct (36-46) % MCV (80-100) fL MCH (26-34) PG MCHC (30-36) % RDW (11.6-14.8) % Plt Count (150-400) X10^3/uL Neut % (Auto) (50-75) % Lymph % (Auto) (25-40) % Posey % (Auto) (3-14) % Eos % (Auto) (2-4) % Baso % (Auto) (0-2) % Neut # (Auto) (9099-1503) /uL Lymph # (Auto) (2610-1468) /uL Posey # (Auto) (0-900) /uL Eos # (Auto) (0-450) /uL Baso # (Auto) (0-100) /uL Sodium 135 L (137-145) mmol/L Potassium 3.2 L (3.4-5.1) mmol/L Chloride 100 (98-107) mmol/L Carbon Dioxide 26 (22-32) mmol/L BUN 6 L (7-17) mg/dL Creatinine 0.70 (0.52-1.04) mg/dL Estimated GFR > 60.0 (>60) mL/min BUN/Creatinine Ratio 8.6 (6-22) Glucose 121 H (80-110) mg/dL Lactate 0.6 L (0.7-2.1) mmol/L Calcium 8.5 (8.4-10.2) mg/dL Total Bilirubin 0.4 (0.2-1.3) mg/dL AST 15 (14-36) IU/L ALT 24 (9-52) IU/L Alkaline Phosphatase 75 (38-126) U/L Total Protein 6.9 (6.3-8.2) g/dL Albumin 3.8 (3.5-5.0) g/dL Globulin 3.1 (1.7-4.1) g/dL Albumin/Globulin Ratio 1.2 (1.0-2.8) Lipase (23-300) U/L Procalcitonin (<0.5) ng/mL Urine RBC (0-5/HPF) Urine WBC (0-5/HPF) Ur Squamous Epith Cells Urine Bacteria (None) Ur Culture Indicated? Influenza A & B (PCR) Negative (Negative) 11/19/18 Range/Units 02:10 WBC (4.5-11.0) X10^3/uL RBC (4.0-5.2) X10^6/uL Hgb (12.0-16.0) g/dL Hct (36-46) % MCV (80-100) fL MCH (26-34) PG MCHC (30-36) % RDW (11.6-14.8) % Plt Count (150-400) X10^3/uL Neut % (Auto) (50-75) % Lymph % (Auto) (25-40) % Posey % (Auto) (3-14) % Eos % (Auto) (2-4) % Baso % (Auto) (0-2) % Neut # (Auto) (7495-3724) /uL Lymph # (Auto) (3641-3363) /uL Posey # (Auto) (0-900) /uL Eos # (Auto) (0-450) /uL Baso # (Auto) (0-100) /uL Sodium (137-145) mmol/L Potassium (3.4-5.1) mmol/L Chloride (98-107) mmol/L Carbon Dioxide (22-32) mmol/L BUN (7-17) mg/dL Creatinine (0.52-1.04) mg/dL Estimated GFR (>60) mL/min BUN/Creatinine Ratio (6-22) Glucose (80-110) mg/dL Lactate (0.7-2.1) mmol/L Calcium (8.4-10.2) mg/dL Total Bilirubin (0.2-1.3) mg/dL AST (14-36) IU/L ALT (9-52) IU/L Alkaline Phosphatase (38-126) U/L Total Protein (6.3-8.2) g/dL Albumin (3.5-5.0) g/dL Globulin (1.7-4.1) g/dL Albumin/Globulin Ratio (1.0-2.8) Lipase (23-300) U/L Procalcitonin (<0.5) ng/mL Urine RBC 0-1/hpf (0-5/HPF) Urine WBC 1-5/hpf (0-5/HPF) Ur Squamous Epith Cells 1-5 /hpf Urine Bacteria Few (2-10) H (None) Ur Culture Indicated? 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 This is probably infectious etiology. There are no specific findings of ischemic etiology. Possibly not entirely ruled out. 2. No small bowel abnormality appreciated. Abdominal wall hernia is noted. Ileostomy site unremarkable. 3. Surgical changes as noted above. MDM Narrative Medical decision making narrative: The patient has normal lactic acid and no leukocytosis. Based on her symptoms of mucousy diarrhea is and CT that showing guerrero colitis. I think patient is be put on his antibiotics. I did look her C diff from 11/17/2018 was negative. She has appointment with GI in about 5 days. At this time is antibiotics with Levaquin and Flagyl. She said that she has had Cipro in the past is made her feel funny no tendon tenderness. I discussed with her consequences of Levaquin she is willing to try. They are given copies of blood work and a CT for her GI doctor. I discussed all findings with the patient and spouse, Education has been performed regarding treatment plan, diagnosis, warning signs and symptoms and all concerns have been addressed. Verbally agree with and understood all of the above. 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 C diff is negative from 2 days ago. Blood work is reassuring today. *Continue to take medications as directed --> FAXED TO [facility] [place] Levaquin 750 mg once a day for 1 week Flagyl 500 mg 3 times a day for 1 week Toppenish 1 tab every 6 hr if needed for severe pain *Follow up with your primary care provider in 2-3 days *Return to ER if you should have inability to tolerate fluids, increasing pain, fever not controlled or any new, worsening or concerning symptoms CONTROLLED SUBSTANCE DISCHARGE (Narcotoic/benzodiazepine/Flexeril/Phenergan) 1. You have been prescribed narcotic medications, it does have acetaminophen/Tylenol/paracetamol in it so do not take extra Tylenol or Tylenol containing products 2. Please understand that we cannot provide further refills of narcotics, benzodiazepines or controlled substances through the ED and her pain management will need to be through your provider. 3. While on these medications you cannot drive or operate heavy machinery. 4. You cannot sign legal documents or perform any duties such as this. 5. As long as you're taking opiate pain medications he should also be taking a stool softener such as Colace, Dulcolax, MiraLAX or prune juice, to help avoid constipation. Prescriptions: New hydrocodone-acetaminophen [Toppenish] 5-325 mg tablet 1 tab PO Q6HR PRN (Reason: pain) Qty: 10 RF: 0 metronidazole [Flagyl] 500 mg tablet 500 mg PO TID Qty: 21 RF: 0 levofloxacin [Levaquin] 750 mg tablet 750 mg PO DAILY Qty: 7 RF: 0 No Action losartan 50 mg tablet 50 mg PO DAILY RF: 0 sertraline 100 mg tablet 100 mg PO DAILY RF: 0 simvastatin 10 mg tablet 10 mg PO QPM RF: 0 alprazolam 0.5 mg tablet 0.5 mg PO QID RF: 0 ipratropium-albuterol [Combivent Respimat] 20-100 mcg/actuation mist 1 puff INHALATION ONCE PRN (Reason: asthma) RF: 0 fluticasone-salmeterol [Advair Diskus] 100-50 mcg/dose blister with device 1 puff Inhalation BID RF: 0 metoprolol tartrate 25 mg tablet 25 mg PO BID RF: 0 hydrocodone-acetaminophen [Toppenish] 5-325 mg tablet 1 tab PO Q6H PRN (Reason: pain) Qty: 10 RF: 0 Referrals: Gordon Anderson MD [Primary Care Provider] -
[2018-11-18] MEDS: SODIUM CHLORIDE 0.9% 2,313.33 ML 771.11 ML IV (23:50)
--- NOTE | 2018-11-18 23:50 | ED_ITS ---
HPI - Nausea/Vomiting/Diarrhea General Chief complaint: Nausea/Vomiting/Diarrhea Stated complaint: STOMACH PAIN LOW Time Seen by Provider: 11/18/18 23:35 History of Present Illness HPI Narrative: patient is 72-year-old female with history of ileostomy presenting with diarrhea. She says that she has had some diarrhea as and mucus from her rectum. 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 She was seen evaluated him last week and has another appointment with him next week. He is supposed to do a colonoscopy. His however today she did notice some blood she was instructed if she had blood to go to the ER. She is noted to have fever and tachycardic. She says she is does not know when the fever started but she has had overall body aches and pains. She feels nauseated at times MD complaint: nausea, diarrhea and abdominal pain Description of Vomiting: bloody Related Data Home Medications Medication Instructions Recorded Confirmed alprazolam 0.5 mg tablet 0.5 mg PO QID 02/22/18 10/21/18 fluticasone 100 mcg-salmeterol 50 1 puff INHALATION BID 02/22/18 10/21/18 mcg/dose blistr powdr for inhalation ipratropium 20 mcg-albuterol 100 1 puff INHALATION ONCE PRN gram 02/22/18 mcg/actuation mist for inhalation losartan 50 mg tablet 50 mg PO DAILY 02/22/18 10/21/18 sertraline 100 mg tablet 100 mg PO DAILY 02/22/18 10/21/18 simvastatin 10 mg tablet 10 mg PO QPM 02/22/18 10/21/18 metoprolol tartrate 25 mg PO BID 10/21/18 10/21/18 Previous Rx's Medication Instructions Recorded hydrocodone-acetaminophen [[place]] 1 tab PO Q6H PRN #10 tab 10/21/18 hydrocodone-acetaminophen [[place]] 1 tab PO Q6HR PRN #10 tab 11/19/18 levofloxacin [Levaquin] 750 mg PO DAILY #7 tab 11/19/18 metronidazole [Flagyl] 500 mg PO TID #21 tab 11/19/18 Allergies Allergy/AdvReac Type Severity Reaction Status Date / Time ciprofloxacin [From Cipro] Allergy Verified 02/15/19 11:02 meperidine [From Demerol] Allergy Verified 10/21/18 11:02 Review of Systems Review of Systems ROS Unobtainable: All systems reviewed & are unremarkable except as noted in HPI and below Constitutional Reports body ache(s), Reports chills and Reports fever(s) Cardiovascular Denies chest pain, Denies irregular heart rhythm, Denies lightheadedness, Denies palpitations, Denies dyspnea, Denies dyspnea on exertion and Denies orthopnea Respiratory Denies cough, Denies dyspnea, Denies dyspnea on exertion and Denies wheezing Gastrointestinal Gastrointestinal: Reports as per HPI, Reports abdominal pain and Reports di arrhea Musculoskeletal Denies back pain, Denies muscle weakness, Denies numbness and Denies tingling Integumentary/Breasts Denies pruritus, Denies erythema, Denies rash and Denies wounds Neurologic Denies numbness and Denies tingling Endocrine Denies palpitations Allergic/Immunologic Denies wheezing PFSH Medical History Asthma (Chronic) HTN (hypertension) (Chronic) Ileostomy present (Chronic) H/O: hysterectomy (Resolved) Surgical History Hx laparoscopic cholecystectomy (Resolved) Family History Mother Hypertension Stroke Brother Cancer Hypertension Social History marital status: household members: spouse Smoking Status: Current every day smoker Family History Mother Hypertension Stroke Brother Cancer Hypertension Social History marital status: household members: spouse Smoking Status: Current every day smoker Exam Initial Vital Signs Initial Vital Signs: Vital Signs Temperature 100.6 F H 11/18/18 22:22 Pulse Rate 119 H 11/18/18 22:22 Respiratory Rate 17 11/18/18 22:22 Blood Pressure 101/56 L 11/18/18 22:22 Pulse Oximetry 99 11/18/18 22:22 GENERAL: Alert female appears to not feel well HEENT: Head atraumatic,EOMI, pupils reactive, CARDIOVASCULAR: Regular rate and rhythm without murmurs, rubs or gallops. RESPIRATORY: Breath sounds equal bilaterally, no wheezes rales or rhonchi. ABDOMEN: Soft, ileostomy noted brown stool in bag stump pink [Hemoccult-positive, no hemorrhoids, nontender] : No CVA tenderness EXTREMITIES: Normal range of motion, no clubbing or edema. Neurovascularly intact NEUROLOGICAL: Alert and oriented x4.Normal gait and speech. Cranial nerves II through XII grossly intact. SKIN: Warm, dry, no laceration, no petechiae, no rashes or lesions. Course Orders Ordered: ED Orders 11/18/18 23:20 Complete Blood Count AUTO DIFF Stat Comprehensive Metabolic Panel Stat Lactate (Lactic Acid) Stat Lipase Stat Procalcitonin Stat 11/18/18 23:40 Influenza A and B by PCR Rapid Stat 11/18/18 23:45 CT abdomen pelvis w con Stat 11/19/18 02:10 Urine Culture Stat Urine Microscopic Stat Discontinued Medications Hydrocodone Bitart/Acetaminophen (Vicodin Prepack) 1 bottle MISC SEEINSTR ONE Stop: 11/19/18 02:57 Last Admin: 11/19/18 03:10 Dose: 1 bottle Hydromorphone HCl (Dilaudid) 0.5 mg IV NOW ONE Stop: 11/18/18 23:46 Last Admin: 11/19/18 00:00 Dose: 0.5 mg Hydromorphone HCl (Dilaudid) 0.5 mg IV NOW ONE Stop: 11/19/18 02:57 Last Admin: 11/19/18 03:11 Dose: 0.5 mg Sodium Chloride (Normal Saline 0.9%) 2,313.33 mls @ 771.11 mls/hr 30 ml/kg infuse over 3 hr (2313.33 ml) IV NOW ONE Stop: 11/19/18 02:44 Levofloxacin (Levaquin) 750 mg PO NOW ONE Stop: 11/19/18 02:57 Last Admin: 11/19/18 03:11 Dose: 750 mg Metronidazole (Metronidazole) 500 mg PO NOW ONE Stop: 11/19/18 02:57 Last Admin: 11/19/18 03:10 Dose: 500 mg Vital Signs - 8 hr 11/19/18 00:24 11/19/18 02:43 Pulse Rate 82 87 Respiratory Rate 14 17 Blood Pressure [Left Arm] 113/70 102/57 L Pulse Oximetry 96 MDM - Nausea/Vomiting/Diarrhea Lab Data Attestation: I reviewed the patient's lab results. Result diagrams: 11/18/18 23:20 11/18/18 23:20 Lab Results 11/18/18 11/18/18 11/18/18 Range/Units 23:20 23:20 23:20 WBC 8.2 (4.5-11.0) X10^3/uL RBC 3.63 L (4.0-5.2) X10^6/uL Hgb 11.1 L (12.0-16.0) g/dL Hct 32.4 L (36-46) % MCV 89.5 (80-100) fL MCH 30.6 (26-34) PG MCHC 34.2 (30-36) % RDW 13.2 (11.6-14.8) % Plt Count 256 (150-400) X10^3/uL Neut % (Auto) 66.9 (50-75) % Lymph % (Auto) 17.6 L (25-40) % [place] % (Auto) 14.8 H (3-14) % Eos % (Auto) 0.4 L (2-4) % Baso % (Auto) 0.3 (0-2) % Neut # (Auto) 5500 (2171-5717) /uL Lymph # (Auto) 1400 (1970-0339) /uL [place] # (Auto) 1200 H (0-900) /uL Eos # (Auto) 0 (0-450) /uL Baso # (Auto) 0 (0-100) /uL Sodium (137-145) mmol/L Potassium (3.4-5.1) mmol/L Chloride (98-107) mmol/L Carbon Dioxide (22-32) mmol/L BUN (7-17) mg/dL Creatinine (0.52-1.04) mg/dL Estimated GFR (>60) mL/min BUN/Creatinine Ratio (6-22) Glucose (80-110) mg/dL Lactate (0.7-2.1) mmol/L Calcium (8.4-10.2) mg/dL Total Bilirubin (0.2-1.3) mg/dL AST (14-36) IU/L ALT (9-52) IU/L Alkaline Phosphatase (38-126) U/L Total Protein (6.3-8.2) g/dL Albumin (3.5-5.0) g/dL Globulin (1.7-4.1) g/dL Albumin/Globulin Ratio (1.0-2.8) Lipase 21 L (23-300) U/L Procalcitonin < 0.05 (<0.5) ng/mL Urine RBC (0-5/HPF) Urine WBC (0-5/HPF) Ur Squamous Epith Cells Urine Bacteria (None) Ur Culture Indicated? Influenza A & B (PCR) (Negative) 11/18/18 11/18/18 11/18/18 Range/Units 23:20 23:20 23:40 WBC (4.5-11.0) X10^3/uL RBC (4.0-5.2) X10^6/uL Hgb (12.0-16.0) g/dL Hct (36-46) % MCV (80-100) fL MCH (26-34) PG MCHC (30-36) % RDW (11.6-14.8) % Plt Count (150-400) X10^3/uL Neut % (Auto) (50-75) % Lymph % (Auto) (25-40) % [place] % (Auto) (3-14) % Eos % (Auto) (2-4) % Baso % (Auto) (0-2) % Neut # (Auto) (4681-8724) /uL Lymph # (Auto) (8927-1151) /uL [place] # (Auto) (0-900) /uL Eos # (Auto) (0-450) /uL Baso # (Auto) (0-100) /uL Sodium 135 L (137-145) mmol/L Potassium 3.2 L (3.4-5.1) mmol/L Chloride 100 (98-107) mmol/L Carbon Dioxide 26 (22-32) mmol/L BUN 6 L (7-17) mg/dL Creatinine 0.70 (0.52-1.04) mg/dL Estimated GFR > 60.0 (>60) mL/min BUN/Creatinine Ratio 8.6 (6-22) Glucose 121 H (80-110) mg/dL Lactate 0.6 L (0.7-2.1) mmol/L Calcium 8.5 (8.4-10.2) mg/dL Total Bilirubin 0.4 (0.2-1.3) mg/dL AST 15 (14-36) IU/L ALT 24 (9-52) IU/L Alkaline Phosphatase 75 (38-126) U/L Total Protein 6.9 (6.3-8.2) g/dL Albumin 3.8 (3.5-5.0) g/dL Globulin 3.1 (1.7-4.1) g/dL Albumin/Globulin Ratio 1.2 (1.0-2.8) Lipase (23-300) U/L Procalcitonin (<0.5) ng/mL Urine RBC (0-5/HPF) Urine WBC (0-5/HPF) Ur Squamous Epith Cells Urine Bacteria (None) Ur Culture Indicated? Influenza A & B (PCR) Negative (Negative) 11/19/18 Range/Units 02:10 WBC (4.5-11.0) X10^3/uL RBC (4.0-5.2) X10^6/uL Hgb (12.0-16.0) g/dL Hct (36-46) % MCV (80-100) fL MCH (26-34) PG MCHC (30-36) % RDW (11.6-14.8) % Plt Count (150-400) X10^3/uL Neut % (Auto) (50-75) % Lymph % (Auto) (25-40) % [place] % (Auto) (3-14) % Eos % (Auto) (2-4) % Baso % (Auto) (0-2) % Neut # (Auto) (3036-1809) /uL Lymph # (Auto) (2103-3162) /uL [place] # (Auto) (0-900) /uL Eos # (Auto) (0-450) /uL Baso # (Auto) (0-100) /uL Sodium (137-145) mmol/L Potassium (3.4-5.1) mmol/L Chloride (98-107) mmol/L Carbon Dioxide (22-32) mmol/L BUN (7-17) mg/dL Creatinine (0.52-1.04) mg/dL Estimated GFR (>60) mL/min BUN/Creatinine Ratio (6-22) Glucose (80-110) mg/dL Lactate (0.7-2.1) mmol/L Calcium (8.4-10.2) mg/dL Total Bilirubin (0.2-1.3) mg/dL AST (14-36) IU/L ALT (9-52) IU/L Alkaline Phosphatase (38-126) U/L Total Protein (6.3-8.2) g/dL Albumin (3.5-5.0) g/dL Globulin (1.7-4.1) g/dL Albumin/Globulin Ratio (1.0-2.8) Lipase (23-300) U/L Procalcitonin (<0.5) ng/mL Urine RBC 0-1/hpf (0-5/HPF) Urine WBC 1-5/hpf (0-5/HPF) Ur Squamous Epith Cells 1-5 /hpf Urine Bacteria Few (2-10) H (None) Ur Culture Indicated? 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 This is probably infectious etiology. There are no specific findings of ischemic etiology. Possibly not entirely ruled out. 2. No small bowel abnormality appreciated. Abdominal wall hernia is noted. Ileostomy site unremarkable. 3. Surgical changes as noted above. [facility] Narrative Medical decision making narrative: The patient has normal lactic acid and no leukocytosis. Based on her symptoms of mucousy diarrhea is and CT that showing guerrero colitis. I think patient is be put on his antibiotics. I did look her C diff from 11/17/2018 was negative. She has appointment with GI in about 5 days. At this time is antibiotics with Levaquin and Flagyl. She said that she has had Cipro in the past is made her feel funny no tendon tenderness. I discussed with her consequences of Levaquin she is willing to try. They are given copies of blood work and a CT for her GI doctor. I discussed all findings with the patient and spouse, Education has been performed regarding treatment plan, diagnosis, warning signs and symptoms and all concerns have been addressed. Verbally agree with and understood all of the above. 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 C diff is negative from 2 days ago. Blood work is reassuring today. *Continue to take medications as directed --> FAXED TO [facility] [place] Levaquin 750 mg once a day for 1 week Flagyl 500 mg 3 times a day for 1 week [place] 1 tab every 6 hr if needed for severe pain *Follow up with your primary care provider in 2-3 days *Return to ER if you should have inability to tolerate fluids, increasing pain, fever not controlled or any new, worsening or concerning symptoms CONTROLLED SUBSTANCE DISCHARGE (Narcotoic/benzodiazepine/Flexeril/Phenergan) 1. You have been prescribed narcotic medications, it does have acetaminophen/Tylenol/paracetamol in it so do not take extra Tylenol or Tylenol containing products 2. Please understand that we cannot provide further refills of narcotics, benzodiazepines or controlled substances through the ED and her pain management will need to be through your provider. 3. While on these medications you cannot drive or operate heavy machinery. 4. You cannot sign legal documents or perform any duties such as this. 5. As long as you're taking opiate pain medications he should also be taking a stool softener such as Colace, Dulcolax, MiraLAX or prune juice, to help avoid constipation. Prescriptions: New hydrocodone-acetaminophen [[place]wood] 5-325 mg tablet 1 tab PO Q6HR PRN (Reason: pain) Qty: 10 RF: 0 metronidazole [Flagyl] 500 mg tablet 500 mg PO TID Qty: 21 RF: 0 levofloxacin [Levaquin] 750 mg tablet 750 mg PO DAILY Qty: 7 RF: 0 No Action losartan 50 mg tablet 50 mg PO DAILY RF: 0 sertraline 100 mg tablet 100 mg PO DAILY RF: 0 simvastatin 10 mg tablet 10 mg PO QPM RF: 0 alprazolam 0.5 mg tablet 0.5 mg PO QID RF: 0 ipratropium-albuterol [Combivent Respimat] 20-100 mcg/actuation mist 1 puff INHALATION ONCE PRN (Reason: asthma) RF: 0 fluticasone-salmeterol [Advair Diskus] 100-50 mcg/dose blister with device 1 puff Inhalation BID RF: 0 metoprolol tartrate 25 mg tablet 25 mg PO BID RF: 0 hydrocodone-acetaminophen [[place]wood] 5-325 mg tablet 1 tab PO Q6H PRN (Reason: pain) Qty: 10 RF: 0 Referrals: Gordon Anderson MD [Primary Care Provider] -
[2018-11-18 23:55] LABS: Add Manual Diff / Slide Review NO; Basophils Absolute Auto 0 /uL (0-100); Basophils Percent Auto 0.3 % (0-2); Eosinophils Absolute Auto 0 /uL (0-450); Eosinophils Percent Auto 0.4 % (2-4); Hematocrit 32.4 % (36-46); Hemoglobin 11.1 g/dL (12.0-16.0); Lymphocytes Absolute Auto 1400 /uL (1100-4500); Lymphocytes Percent Auto 17.6 % (25-40); Mean Corpuscular HGB Conc 34.2 % (30-36); Mean Corpuscular Hemoglobin 30.6 PG (26-34); Mean Corpuscular Volume 89.5 fL (80-100); Monocytes Absolute Auto 1200 /uL (0-900); Monocytes Percent Auto 14.8 % (3-14); Neutrophils Absolute Auto 5500 /uL (1500-7000); Neutrophils Percent Auto 66.9 % (50-75); Platelet Count 256 X10^3/uL (150-400); Red Blood Cell Count 3.63 X10^6/uL (4.0-5.2); Red Cell Distribution Width 13.2 % (11.6-14.8); White Blood Cell Count 8.2 X10^3/uL (4.5-11.0)
[2018-11-19] LABS: Lactate (Lactic Acid) 0.6 mmol/L (0.7-2.1)
[2018-11-19 00:05] LABS: Lipase 21 U/L (23-300)
[2018-11-19 00:14] LABS: Influenza A and B by PCR Rapid Negative (Negative)
[2018-11-19 00:19] LABS: Alanine Aminotransferase 24 IU/L (9-52); Albumin 3.8 g/dL (3.5-5.0); Albumin Globulin Ratio 1.2 (1.0-2.8); Alkaline Phosphatase 75 U/L (38-126); Aspartate Aminotransferase 15 IU/L (14-36); BUN Creatinine Ratio 8.6 (6-22); Bilirubin Total 0.4 mg/dL (0.2-1.3); Blood Urea Nitrogen 6 mg/dL (7-17); Calcium 8.5 mg/dL (8.4-10.2); Carbon Dioxide 26 mmol/L (22-32); Chloride 100 mmol/L (98-107); Estimated Glomerular Filt Rate > 60.0 mL/min (>60); Globulin 3.1 g/dL (1.7-4.1); Glucose 121 mg/dL (80-110); HEMOLYSIS < 15 (0-50); Potassium 3.2 mmol/L (3.4-5.1); Sodium 135 mmol/L (137-145); Total Protein 6.9 g/dL (6.3-8.2)
[2018-11-19 00:24] VITALS: BP 113/70; PULSE 82; RESP 14
[2018-11-19 00:31] LABS: Procalcitonin < 0.05 ng/mL (<0.5)
[2018-11-19 02:43] VITALS: BP 102/57; PULSE 87; RESP 17; O2SAT 96
[2018-11-19 02:49] LABS: Bacteria Urine Few (2-10); RBC Urine 0-1/HPF (0-5/HPF); Squamous Epithelial Cell Urine 1-5 /HPF; WBC Urine 1-5/HPF (0-5/HPF)
[2018-11-19 02:50] LABS: Culture Indicated Urine Specimen Cultured
--- NOTE | 2018-11-19 02:55 | PC.NURSE ---
Pt states diarrhea and blood from her rectum. She has an ileostomy present after ischemic bowel 3 years ago and sees a spd tech at [facility] and scheduled to have a colonoscopy. States she feels nauseated and has had a fever.
[2018-11-19] MEDS: HYDROCODONE/ACET 5/325 PREPACK 1 BOTTLE MISC (03:10)
[2018-11-19] MEDS: metroNIDAZOLE 250 MG TABLET 500 MG PO (03:10)
[2018-11-19] MEDS: HYDROMORPHONE 1 MG INJ 0.5 MG IV ×2 (03:11)
[2018-11-19] MEDS: levoFLOXacin 250 MG TABLET 750 MG PO (03:11)
== END 2018-11-19 03:25 | disposition home or self-care (01) ==
PROVIDERS: Emergency Provider Emergency Medicine; PCP Specialist
DX: K51.00 Ulcerative (chronic) pancolitis without complications (principal)
CPT/HCPCS: 36415; 36591; 74177; 80053; 81003; 81015; 83605; 83690; 84145; 85025; 87040; 87086; 87400; 96361; 96374; 96376; 99283; 99285; J1170; Q9967

== ENCOUNTER 2018-11-26 05:59 | Emergency (ER) | payer MEDICARE, BC, SELFPAY ==
[2018-11-26 06:00] VITALS: BP 127/63; PULSE 77; RESP 22; TEMP 36.8; O2SAT 95; BMI 26.5
--- NOTE | 2018-11-26 06:08 | ED_ITS ---
HPI - General Adult General Chief complaint: Upper Respiratory Symptoms Stated complaint: woke up with congested lungs, hard time breathing Time Seen by Provider: 11/26/18 06:05 Source: patient Mode of arrival: ambulatory Limitations: no limitations History of Present Illness HPI narrative: Patient is a 73-year-old female. Has a history of asthma. Is on Combivent. Here for evaluation of shortness of breath and wheezing this morning. She states she woke up feeling this way. Was having a coughing fit. States she feels better now. Has had sinus congestion and sore throat recently. Related Data Home Medications Medication Instructions Recorded Confirmed alprazolam 0.5 mg tablet 0.5 mg PO QID 02/22/18 10/21/18 fluticasone 100 mcg-salmeterol 50 1 puff INHALATION BID 02/22/18 10/21/18 mcg/dose blistr powdr for inhalation ipratropium 20 mcg-albuterol 100 1 puff INHALATION ONCE PRN gram 02/22/18 10/21/18 mcg/actuation mist for inhalation losartan 50 mg tablet 50 mg PO DAILY 02/22/18 10/21/18 sertraline 100 mg tablet 100 mg PO DAILY 02/22/18 10/21/18 simvastatin 10 mg tablet 10 mg PO QPM 02/22/18 10/21/18 metoprolol tartrate 25 mg PO BID 10/21/18 10/21/18 Previous Rx's Medication Instructions Recorded hydrocodone-acetaminophen [[place]] 1 tab PO Q6H PRN #10 tab 10/21/18 hydrocodone-acetaminophen [[place]] 1 tab PO Q6HR PRN #10 tab 11/19/18 levofloxacin [Levaquin] 750 mg PO DAILY #7 tab 11/19/18 metronidazole [Flagyl] 500 mg PO TID #21 tab 11/19/18 albuterol sulfate 1 puff INHALATION Q4-6H PRN #18 11/26/18 gram benzonatate [Tessalon Perles] 100 mg PO BID-TID PRN #20 cap 11/26/18 Allergies Allergy/AdvReac Type Severity Reaction Status Date / Time ciprofloxacin [From Cipro] Allergy Verified 10/21/18 11:02 meperidine [From Demerol] Allergy Verified 10/21/18 11:02 Review of Systems Constitutional Denies fatigue, Denies fever(s) and Denies headache(s) ENT Ears, Nose, Mouth, and Throat: Denies headache(s), Reports sinus pressure and Reports sore throat Cardiovascular Reports dyspnea Respiratory Reports cough, Reports dyspnea and Reports wheezing Musculoskeletal Denies abnormal gait Integumentary/Breasts Denies rash Neurologic Denies abnormal gait and Denies headache(s) Endocrine Denies fatigue Hematologic/Lymphatic Denies easy bleeding and Denies easy bruising Allergic/Immunologic Denies urticaria and Reports wheezing [facility] Social History marital status: household members: spouse Smoking Status: Current every day smoker Exam Initial Vital Signs Initial Vital Signs: Vital Signs Temperature 98.3 F 11/26/18 06:00 Pulse Rate 77 11/26/18 06:00 Respiratory Rate 22 11/26/18 06:00 Blood Pressure 127/63 11/26/18 06:00 Pulse Oximetry 95 11/26/18 06:00 Const General: cooperative, healthy appearing, comfortable, well developed, well groomed and No acute distress Orientation: alert, awake and oriented x3 HENMT Head: normal to inspection and normocephalic Resp Effort & Inspection: normal respiratory effort, cough, no grunting and not labored Auscultation: wheezes upper bilaterally Cardio Rate: regular rate Rhythm: regular rhythm Skin Lesions: no lesions Rashes: no rashes Neuro General: alert, awake and oriented x3 Cognition: normal cognition Speech: speech normal Gait: normal gait Extrem General: normal to inspection and capillary refill normal Psych Appearance: grossly normal and well kempt Course Orders Ordered: ED Orders 11/26/18 06:08 XR chest 1V Stat Vital Signs - 8 hr 11/26/18 06:00 Temperature 98.3 F Pulse Rate 77 Respiratory Rate 22 Blood Pressure 127/63 Pulse Oximetry 95 Medical Decision Making Imaging Data Chest x-ray: Attestation: I personally reviewed and interpreted this imaging study as follows: My impression: No pneumothorax, normal size heart, normal lungs MDM Narrative Medical decision making narrative: Patient not any respiratory distress. Not hypoxic. Does have bilateral upper respiratory wheezes. Also has a oropharynx consistent with a postnasal drip. She has had sinus congestion recently. Will send home with prescription for Tessalon Perles and albuterol. She was given a spacer here in the ER. We also discussed the use of decongestants at home. She was given return precautions. She expressed understanding and agreement with plan. Discharge Plan Departure Patient Disposition: Home Clinical Impression: Wheezing Upper respiratory infection Qualifiers: URI type: unspecified URI Qualified Code(s): J06.9 - Acute upper respiratory infection, unspecified Instructions: Cough (Alternative Therapy), Cough Activity Restrictions/Additional Instructions: Recommend that you purchase either Claritin or Coty or Zyrtec and start taking it as directed. Use the albuterol inhaler as needed. Return to the emergency department for any new or worsening symptoms Prescriptions: New benzonatate [Tessalon Perles] 100 mg capsule 100 mg PO BID-TID PRN (Reason: cough) Qty: 20 RF: 0 albuterol sulfate 90 mcg/actuation HFA aerosol inhaler 1 puff INHALATION Q4-6H PRN (Reason: shortness of breath or wheezing) Qty: 18 RF: 0 No Action losartan 50 mg tablet 50 mg PO DAILY RF: 0 sertraline 100 mg tablet 100 mg PO DAILY RF: 0 simvastatin 10 mg tablet 10 mg PO QPM RF: 0 alprazolam 0.5 mg tablet 0.5 mg PO QID RF: 0 ipratropium-albuterol [Combivent Respimat] 20-100 mcg/actuation mist 1 puff INHALATION ONCE PRN (Reason: asthma) RF: 0 fluticasone propion-salmeterol [Advair Diskus] 100-50 mcg/dose blister with device 1 puff Inhalation BID RF: 0 metoprolol tartrate 25 mg tablet 25 mg PO BID RF: 0 hydrocodone-acetaminophen [[place]] 5-325 mg tablet 1 tab PO Q6H PRN (Reason: pain) Qty: 10 RF: 0 hydrocodone-acetaminophen [[place]] 5-325 mg tablet 1 tab PO Q6HR PRN (Reason: pain) Qty: 10 RF: 0 metronidazole [Flagyl] 500 mg tablet 500 mg PO TID Qty: 21 RF: 0 levofloxacin [Levaquin] 750 mg tablet 750 mg PO DAILY Qty: 7 RF: 0 Referrals: Gordon Anderson MD [Primary Care Provider] -
--- NOTE | 2018-11-26 06:08 | DI.RAD.S_ITS ---
PROCEDURE: XR CHEST 1V INDICATIONS: Shortness of breath TECHNIQUE: One view of the chest was acquired. COMPARISON: None. FINDINGS: Surgical changes and devices: None. Lungs and pleura: Lungs are clear. No pleural effusions or pneumothorax. Mediastinum: Mediastinal contours appear normal. Heart size is normal. Bones and chest wall: No suspicious bony lesions. Overlying soft tissues appear unremarkable. IMPRESSION: No active cardiopulmonary disease. No significant discrepancy with the ER preliminary interpretation. Dictated by: Brina Huynh M.D. on 11/26/2018 at 9:47 Approved by: Brina Huynh M.D. on 11/26/2018 at 9:47
[2018-11-26 07:05] VITALS: BP 103/71; PULSE 70; RESP 19; O2SAT 98
[2018-11-26 07:16] VITALS: BP 103/71; PULSE 70; RESP 19; O2SAT 94
== END 2018-11-26 07:00 | disposition home or self-care (01) ==
PROVIDERS: Emergency Provider Emergency Medicine; PCP Specialist
DX: J06.9 Acute upper respiratory infection, unspecified (principal)
CPT/HCPCS: 36591; 71045; 99282; 99283

== ENCOUNTER 2019-05-29 23:04 | Emergency (ER) | payer MEDICARE, OTHER, BC, SELFPAY ==
[2019-05-29 23:17] VITALS: BP 136/58; PULSE 80; RESP 16; TEMP 37.4; O2SAT 99; BMI 28.0
--- NOTE | 2019-05-29 23:23 | ED_ITS ---
HPI - Back Pain/Injury General Chief Complaint: Back Pain/Injury Stated Complaint: HORRIBLE MUSCLE SPASMS Time Seen by Provider: 05/29/19 23:06 Source: patient Mode of arrival: Ambulatory Limitations: no limitations History of Present Illness HPI Narrative: 73-year-old female here for evaluation of muscle spasms in her left lower back/buttock region. She states that it started earlier this evening. Did have some Flexeril that is several years old but has not had much improvement. No urinary symptoms. No fevers. No bowel changes. Related Data Home Medications Medication Instructions Recorded Confirmed alprazolam 0.5 mg tablet 0.5 mg PO QID 02/22/18 10/21/18 fluticasone 100 mcg-salmeterol 50 1 puff INHALATION BID 02/22/18 10/21/18 mcg/dose blistr powdr for inhalation ipratropium 20 mcg-albuterol 100 1 puff INHALATION ONCE PRN gram 02/22/18 10/21/18 mcg/actuation mist for inhalation losartan 50 mg tablet 50 mg PO DAILY 02/22/18 10/21/18 sertraline 100 mg tablet 100 mg PO DAILY 02/22/18 10/21/18 simvastatin 10 mg tablet 10 mg PO QPM 02/22/18 10/21/18 metoprolol tartrate 25 mg PO BID 10/21/18 10/21/18 Previous Rx's Medication Instructions Recorded hydrocodone-acetaminophen [[place]] 1 tab PO Q6H PRN #10 tab 10/21/18 hydrocodone-acetaminophen [[place]] 1 tab PO Q6HR PRN #10 tab 11/19/18 levofloxacin [Levaquin] 750 mg PO DAILY #7 tab 11/19/18 metronidazole [Flagyl] 500 mg PO TID #21 tab 11/19/18 albuterol sulfate 1 puff INHALATION Q4-6H PRN #18 11/26/18 gram benzonatate [Tessalon Perles] 100 mg PO BID-TID PRN #20 cap 11/26/18 cyclobenzaprine 10 mg PO TID PRN #14 tab 05/29/19 Allergies Allergy/AdvReac Type Severity Reaction Status Date / Time ciprofloxacin [From Cipro] Allergy Verified 10/21/18 11:02 meperidine [From Demerol] Allergy Verified 10/21/18 11:02 Review of Systems Constitutional Constitutional: Denies fever(s) and Denies headache(s) ENT Ears, Nose, Mouth, and Throat: Denies vertigo and Denies headache(s) Musculoskeletal Comments: Left buttock muscle cramp Integumentary/Breasts Skin/Breast: Denies lesions and Denies rash Neurologic Neurologic: Denies abnormal movements, Denies burning sensations, Denies confusion, Denies vertigo, Denies headache(s) and Denies paresthesias Psychiatric Psychiatric: Denies confusion Hematologic/Lymphatic Hematologic/Lymphatic: Denies easy bleeding and Denies easy bruising [facility] Medical History Asthma (Chronic) H/O: hysterectomy (Resolved) HTN (hypertension) (Chronic) Ileostomy present (Chronic) Social History marital status: household members: spouse Smoking Status: Current every day smoker Exam Initial Vital Signs Initial Vital Signs: Vital Signs Temperature 99.3 F 05/29/19 23:17 Pulse Rate 80 05/29/19 23:17 Respiratory Rate 16 05/29/19 23:17 Blood Pressure 136/58 L 05/29/19 23:17 Pulse Oximetry 99 05/29/19 23:17 Const General: cooperative, well developed and well groomed Orientation: alert, awake and oriented x3 Resp Effort & Inspection: normal respiratory effort Cardio Rate: regular rate Skin Lesions: no lesions Rashes: no rashes Neuro General: alert, awake and oriented x3 Cognition: normal cognition Speech: speech normal Extrem Other: Patient with pinpoint tenderness to palpation over the left buttocks over the area of the piriformis Course Orders Ordered: Discontinued Medications Cyclobenzaprine HCl (Flexeril 10 Mg Prepack) 1 bottle MISC SEEINSTR ONE Stop: 05/29/19 23:50 Last Admin: 05/30/19 00:07 Dose: 1 bottle Documented by: DESTINY Diazepam (Valium) 5 mg PO NOW ONE Stop: 05/29/19 23:24 Last Admin: 05/29/19 23:31 Dose: 5 mg Documented by: EMMETT Vital Signs Vital signs: Vital Signs - 8 hr 05/29/19 23:17 05/30/19 00:20 Temperature 99.3 F Pulse Rate 80 73 Respiratory Rate 16 16 Blood Pressure 136/58 L 110/65 Pulse Oximetry 99 97 MDM - Back Pain/Injury MDM Narrative Medical decision making narrative: History of physical exam consistent with a mu scle spasm the left buttocks. Low suspicion for cauda equina. Low suspicion for fracture. No indication for radiologic studies. Will treat symptomatically. Patient was given return precautions and follow-up instructions. She expressed understanding and agreement with plan. Discharge Plan Departure Patient Disposition: Home Clinical Impression: Muscle spasm Discharge Date/Time: 05/30/19 00:22 Instructions: DI for Muscle Spasm Activity Restrictions/Additional Instructions: Use the muscle relaxers as needed. Do the stretches like we discussed. You can also use heat and ice and massage. Contact your primary provider for follow-up. Prescriptions: New cyclobenzaprine 10 mg tablet 10 mg PO TID PRN (Reason: muscle spasm) Qty: 14 RF: 0 No Action losartan 50 mg tablet 50 mg PO DAILY RF: 0 sertraline 100 mg tablet 100 mg PO DAILY RF: 0 simvastatin 10 mg tablet 10 mg PO QPM RF: 0 alprazolam 0.5 mg tablet 0.5 mg PO QID RF: 0 ipratropium-albuterol [Combivent Respimat] 20-100 mcg/actuation mist 1 puff INHALATION ONCE PRN (Reason: asthma) RF: 0 fluticasone propion-salmeterol [Advair Diskus] 100-50 mcg/dose blister with device 1 puff Inhalation BID RF: 0 metoprolol tartrate 25 mg tablet 25 mg PO BID RF: 0 hydrocodone-acetaminophen [[place]] 5-325 mg tablet 1 tab PO Q6H PRN (Reason: pain) Qty: 10 RF: 0 hydrocodone-acetaminophen [[place]] 5-325 mg tablet 1 tab PO Q6HR PRN (Reason: pain) Qty: 10 RF: 0 metronidazole [Flagyl] 500 mg tablet 500 mg PO TID Qty: 21 RF: 0 levofloxacin [Levaquin] 750 mg tablet 750 mg PO DAILY Qty: 7 RF: 0 benzonatate [Tessalon Perles] 100 mg capsule 100 mg PO BID-TID PRN (Reason: cough) Qty: 20 RF: 0 albuterol sulfate 90 mcg/actuation HFA aerosol inhaler 1 puff INHALATION Q4-6H PRN (Reason: shortness of breath or wheezing) Qty: 18 RF: 0 Referrals: Gordon Anderson MD [Primary Care Provider] -
[2019-05-29] MEDS: diazePAM 5 MG TABLET PO (23:31)
[2019-05-30] MEDS: CYCLOBENZAPRINE 10 MG PREPACK 1 BOTTLE MISC (00:07)
[2019-05-30 00:20] VITALS: BP 110/65; PULSE 73; RESP 16; O2SAT 97
== END 2019-05-30 00:22 | disposition home or self-care (01) ==
PROVIDERS: Emergency Provider Emergency Medicine; PCP Specialist
DX: M62.838 Other muscle spasm (principal)
CPT/HCPCS: 99282; 99283

== ENCOUNTER → 2020-10-09 13:47 | Outpatient (CLI) | payer MEDICARE, OTHER, BC, SELFPAY ==
--- NOTE | 2020-10-09 | DI.RAD.S_ITS ---
PROCEDURE: XR DEXA AXIAL SKELETON INDICATIONS: Asymptomatic menopausal state COMPARISON: None. FINDINGS: This blank DEXA report has been sent in error by the PACS system. The correct and complete report will be forthcoming in 1-2 days. Thank you for your patience and understanding. Dictated by: Sonya Moyer MD, PhD on 10/09/2020 at 17:28 Approved by: Sonya Moyer MD, PhD on 10/09/2020 at 17:28
== END ==
PROVIDERS: PCP Physician Assistant Medical; Referring Provider Physician Assistant Medical; Visit Provider Physician Assistant Medical
DX: M81.0 Age-related osteoporosis without current pathological fracture (principal); Z78.0 Asymptomatic menopausal state
CPT/HCPCS: 77080

== ENCOUNTER 2021-04-11 18:35 | Emergency (ER) | payer MEDICARE, OTHER, BC, SELFPAY ==
[2021-04-11] VITALS (7 sets, daily range): BP systolic 129; BP diastolic 60–88; PULSE 97–103; RESP 20–29; TEMP 37.9; O2SAT 94–98; BMI 59.3
--- NOTE | 2021-04-11 19:07 | PC.NURSE ---
Patient getting treatment from PCP for colitis, levaquin and flagyl. Reporting rectal leakage that PCP is aware of, does have ileostomy. Denies loss of bladder function.
[2021-04-11 19:24] LABS: Add Manual Diff / Slide Review NO; Basophils Absolute Auto 0 /uL (0-100); Basophils Percent Auto 0.2 % (0-2); Eosinophils Absolute Auto 100 /uL (0-450); Eosinophils Percent Auto 1.2 % (2-4); Hematocrit 34.2 % (36-46); Hemoglobin 11.4 g/dL (12.0-16.0); Lymphocytes Absolute Auto 1000 /uL (1100-4500); Lymphocytes Percent Auto 12.2 % (25-40); Mean Corpuscular HGB Conc 33.5 % (30-36); Mean Corpuscular Hemoglobin 30.8 PG (26-34); Mean Corpuscular Volume 92.2 fL (80-100); Monocytes Absolute Auto 1300 /uL (0-900); Monocytes Percent Auto 16.5 % (3-14); Neutrophils Absolute Auto 5700 /uL (1500-7000); Neutrophils Percent Auto 69.9 % (50-75); Platelet Count 184 X10^3/uL (150-400); Red Blood Cell Count 3.71 X10^6/uL (4.0-5.2); Red Cell Distribution Width 13.9 % (11.6-14.8); White Blood Cell Count 8.2 X10^3/uL (4.5-11.0)
[2021-04-11] MEDS: SODIUM CHLORIDE 0.9% 1,000 ML 1000 ML IV (19:24)
[2021-04-11] MEDS: ACETAMINOPHEN 325 MG TABLET 650 MG PO (19:24)
--- NOTE | 2021-04-11 19:41 | ED.NECK ---
HPI - Neck Pain/Injury General Chief Complaint: Neck Pain/Injury Stated Complaint: Head and Neck Pain Time Seen by Provider: 04/11/21 18:59 Mode of arrival: Wheelchair Limitations: no limitations History of Present Illness HPI Narrative: Patient is a 75-year-old female. Was recently diagnosed with colitis. Has been on Levaquin and Flagyl prescribed by her primary doctor. She has been on this for the past 3 days. Since that time she has had neck discomfort that has worsened today. She also has a frontal headache. 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 She denies any specific trauma. States it was a gradual onset. No sore throat. No ringing in her ears. No vision changes. No neurologic changes. No chest pain. No shortness of breath. No change in any of her abdominal symptoms that led to her diagnosis of the colitis. No urinary symptoms. No rashes. She has been taking all of her medications as directed. She states that her neck hurts when she touches it and when she looks up or turns it from side to side. Related Data Home Medications Medication Instructions Recorded Confirmed alprazolam 0.5 mg tablet 0.5 mg PO QID 02/22/18 10/21/18 fluticasone 100 mcg-salmeterol 50 1 puff INHALATION BID 02/22/18 10/21/18 mcg/dose blistr powdr for inhalation (Advair Diskus) ipratropium 20 mcg-albuterol 100 1 puff INHALATION ONCE PRN gram 02/22/18 10/21/18 mcg/actuation mist for inhalation (Combivent Respimat) losartan 50 mg tablet 50 mg PO DAILY 02/22/18 10/21/18 sertraline 100 mg tablet 100 mg PO DAILY 02/22/18 10/21/18 simvastatin 10 mg tablet 10 mg PO QPM 02/22/18 10/21/18 metoprolol tartrate 25 mg tablet 25 mg PO BID 10/21/18 10/21/18 Previous Rx's Medication Instructions Recorded hydrocodone 5 mg-acetaminophen 325 1 tab PO Q6H PRN #10 tab 10/21/18 mg tablet ([place]) hydrocodone 5 mg-acetaminophen 325 1 tab PO Q6HR PRN #10 tab 11/19/18 mg tablet ([place]) levofloxacin 750 mg tablet 750 mg PO DAILY #7 tab 11/19/18 (Levaquin) metronidazole 500 mg tablet 500 mg PO TID #21 tab 11/19/18 (Flagyl) albuterol sulfate 90 mcg/actuation 1 puff INHALATION Q4-6H PRN #18 11/26/18 aerosol inhaler gram benzonatate 100 mg capsule 100 mg PO BID-TID PRN #20 cap 11/26/18 (Tessalon Perles) cyclobenzaprine 10 mg tablet 10 mg PO TID PRN #14 tab 05/29/19 Allergies Allergy/AdvReac Type Severity Reaction Status Date / Time ciprofloxacin [From Cipro] Allergy Verified 04/11/21 18:53 meperidine [From Demerol] Allergy Verified 04/11/21 18:53 Review of Systems Constitutional Constitutional: Reports as per HPI Eyes Eyes: Reports as per HPI ENT Ears, Nose, Mouth, and Throat: Reports as per HPI Cardiovascular Cardiovascular: Reports as per HPI Respiratory Respiratory: Reports as per HPI Gastrointestinal Gastrointestinal: Reports as per HPI Genitourinary Genitourinary: Reports system reviewed and no additional complaints, except as documented Musculoskeletal Musculoskeletal: Reports as per HPI Integumentary/Breasts Skin/Breast: Reports as per HPI Neurologic Neurologic: Reports as per HPI Psychiatric Psychiatric: Reports as per HPI Endocrine Endocrine: Reports system reviewed and no additional complaints, except as documented Hematologic/Lymphatic On Anticoagulants: No Allergic/Immunologic Allergic/Immunologic: Reports as per HPI Patient History Medical History Asthma HTN (hypertension) Ileostomy present Surgical History H/O: hysterectomy Hx laparoscopic cholecystectomy Family History Mother Hypertension Stroke Brother Cancer Hypertension Social History marital status: household members: spouse Smoking Status: Current every day smoker Smoking Status: Current every day smoker alcohol intake frequency: 0-2 drinks per day Substance Use Type: does not use Exam Initial Vital Signs Initial Vital Signs: Vital Signs Temperature 100.2 F H 04/11/21 18:53 Pulse Rate 103 H 04/11/21 18:53 Respiratory Rate 20 04/11/21 18:53 Blood Pressure 129/88 04/11/21 18:53 Pulse Oximetry 97 04/11/21 18:53 Const General: cooperative, well developed, well groomed and No acute distress HENOK Head: normal to inspection and normocephalic Ears: hearing grossly normal bilaterally Face and sinus: normal facial exam Mouth: oral mucosae normal Eyes General: appearance normal, both eyes and all related structures Pupils: PERRL EOM: EOM intact bilaterally Neck Neck: normal visual inspection Chest Chest: normal inspection of the chest Resp Effort & Inspection: normal respiratory effort Auscultation: clear to auscultation bilaterally Cardio Rate: tachycardic Rhythm: regular rhythm GI Palpation: soft Back/Spine/Pelvis Cervical Spine: cervical muscular tenderness and No cervical spinal tenderness Thoracic/Lumbar Spine: No thoracic spinal tenderness and No lumbar spinal tenderness Skin General: no rashes or lesions noted Neuro General: patient alert, patient awake, patient oriented x3 and moves all extremities Cranial Nerves: CN's II-XI intact bilaterally Cognition: normal cognition Speech: speech normal Sensory Exam: no sensory deficits noted Extrem General: normal to inspection and capillary refill normal Psych Appearance: grossly normal and well kempt Course Orders Ordered: ED Orders 04/11/21 19:13 COVID19 - ADMIT ([employer] swab/PCR) Stat Complete Blood Count AUTO DIFF Stat Comprehensive Metabolic Panel Stat Lactate (Lactic Acid) Stat Lipase Stat Procalcitonin Stat 04/11/21 19:33 Blood Culture Stat Discontinued Medications Acetaminophen (Acetaminophen 325 Mg Tablet) 650 mg PO NOW ONE Stop: 04/11/21 19:05 Last Admin: 04/11/21 19:24 Dose: 650 mg Documented by: CORI Cyclobenzaprine HCl (Cyclobenzaprine 10 Mg Prepack) 1 bottle MISC SEEINSTR ONE Stop: 04/11/21 21:02 Last Admin: 04/11/21 21:16 Dose: 1 bottle Documented by: CORI Diazepam (Diazepam 10 Mg/2 Ml Syringe) 2 mg IV NOW ONE Stop: 04/11/21 19:42 Last Admin: 04/11/21 20:01 Dose: 2 mg Documented by: CORI Sodium Chloride (Normal Saline 0.9%) 1,000 mls @ 1,000 mls/hr IV BOLUS ONE Stop: 04/11/21 20:00 Last Infusion: 04/11/21 20:52 Dose: 0 mls/hr Documented by: Admin: 04/11/21 19:24 Dose: 1,000 mls/hr Documented by: CORI Lidocaine HCl (Lidocaine 1% (Pf)) 2 ml INJ NOW ONE Stop: 04/11/21 19:42 Last Admin: 04/11/21 20:00 Dose: 2 ml Documented by: CORI Vital Signs Vital signs: Vital Signs - 8 hr 04/11/21 18:53 04/11/21 19:10 04/11/21 19:24 Temperature 100.2 F H 100.2 F H Pulse Rate 103 H 101 H Respiratory Rate 20 Blood Pressure 129/88 Pulse Oximetry 97 98 04/11/21 19:30 04/11/21 20:00 04/11/21 20:30 Temperature Pulse Rate 98 H 100 H 97 H Respiratory Rate 25 H 21 20 Blood Pressure Pulse Oximetry 97 95 95 04/11/21 21:00 Temperature Pulse Rate 100 H Respiratory Rate 29 H Blood Pressure 129/60 Pulse Oximetry 94 MDM - Neck Pain/Injury Lab Data Attestation: I reviewed the patient's lab results. Result diagrams: 04/11/21 19:13 04/11/21 19:13 Labs: Lab Results 04/11/21 04/11/21 04/11/21 Range/Units 19:13 19:13 19:13 WBC 8.2 (4.5-11.0) X10^3/uL RBC 3.71 L (4.0-5.2) X10^6/uL Hgb 11.4 L (12.0-16.0) g/dL Hct 34.2 L (36-46) % MCV 92.2 (80-100) fL MCH 30.8 (26-34) PG MCHC 33.5 (30-36) % RDW 13.9 (11.6-14.8) % Plt Count 184 (150-400) X10^3/uL Neut % (Auto) 69.9 (50-75) % Lymph % (Auto) 12.2 L (25-40) % Giles % (Auto) 16.5 H (3-14) % Eos % (Auto) 1.2 L (2-4) % Baso % (Auto) 0.2 (0-2) % Neut # (Auto) 5700 (1400-6736) /uL Lymph # (Auto) 1000 L (9785-4437) /uL Giles # (Auto) 1300 H (0-900) /uL Eos # (Auto) 100 (0-450) /uL Baso # (Auto) 0 (0-100) /uL Sodium 134 L (137-145) mmol/L Potassium 3.8 (3.4-5.1) mmol/L Chloride 100 (98-107) mmol/L Carbon Dioxide 30 (22-32) mmol/L BUN 6 L (7-17) mg/dL Creatinine 0.74 (0.52-1.04) mg/dL Estimated GFR > 60.0 (>60) mL/min BUN/Creatinine Ratio 8.1 (6-22) Glucose 109 (80-110) mg/dL Lactate 0.9 (0.7-2.1) mmol/L Calcium 8.2 L (8.4-10.2) mg/dL Total Bilirubin 0.4 (0.2-1.3) mg/dL AST 14 (14-36) IU/L ALT 11 (<35) IU/L Alkaline Phosphatase 72 (38-126) U/L Total Protein 6.2 L (6.3-8.2) g/dL Albumin 3.3 L (3.5-5.0) g/dL Globulin 2.9 (1.7-4.1) g/dL Albumin/Globulin Ratio 1.1 (1.0-2.8) Lipase 39 (23-300) U/L Procalcitonin (<0.5) ng/mL SARS-CoV-2 (PCR) (Negative) 04/11/21 04/11/21 Range/Units 19:13 19:13 WBC (4.5-11.0) X10^3/uL RBC (4.0-5.2) X10^6/uL Hgb (12.0-16.0) g/dL Hct (36-46) % MCV (80-100) fL MCH (26-34) PG MCHC (30-36) % RDW (11.6-14.8) % Plt Count (150-400) X10^3/uL Neut % (Auto) (50-75) % Lymph % (Auto) (25-40) % Giles % (Auto) (3-14) % Eos % (Auto) (2-4) % Baso % (Auto) (0-2) % Neut # (Auto) (4170-3602) /uL Lymph # (Auto) (1200-3476) /uL Giles # (Auto) (0-900) /uL Eos # (Auto) (0-450) /uL Baso # (Auto) (0-100) /uL Sodium (137-145) mmol/L Potassium (3.4-5.1) mmol/L Chloride (98-107) mmol/L Carbon Dioxide (22-32) mmol/L BUN (7-17) mg/dL Creatinine (0.52-1.04) mg/dL Estimated GFR (>60) mL/min BUN/Creatinine Ratio (6-22) Glucose (80-110) mg/dL Lactate (0.7-2.1) mmol/L Calcium (8.4-10.2) mg/dL Total Bilirubin (0.2-1.3) mg/dL AST (14-36) IU/L ALT (<35) IU/L Alkaline Phosphatase (38-126) U/L Total Protein (6.3-8.2) g/dL Albumin (3.5-5.0) g/dL Globulin (1.7-4.1) g/dL Albumin/Globulin Ratio (1.0-2.8) Lipase (23-300) U/L Procalcitonin 0.17 (<0.5) ng/mL SARS-CoV-2 (PCR) Negative (Negative) MDM Narrative Medical decision making narrative: Patient does not have leukocytosis but does have a fever and tachycardia. This could very well be explained by her colitis. She also has neck discomfort and headache. We did consider meningitis however her symptoms are clearly reproducible specifically with palpation of the right paracervical muscles. She is also tender in the occipital region of her scalp and again this reproduces the symptoms that brought her in today. She has discomfort with extension of her neck and also with turning her head to the left and right which is consistent with muscular tenderness. She was given Valium. I also performed an occipital nerve block with 1 cc of 1% lidocaine on the left and the same on the right. After this treatment she reports a vast improvement of her symptoms. I have low suspicion for an intracranial hemorrhage. Had a long discussion with her and her at bedside about meningitis. We did discuss lumbar puncture however given her presenting symptoms, reproducibility the symptoms, improvement with treatments here in the emergency department I feel that meningitis is less likely. The patient expressed understanding and agreement with holding on lumbar puncture for now however she was given strict return precautions and follow-up instructions. She will continue her current course of antibiotics. Patient was asking to be discharged home. Discharge Plan Departure Patient Disposition: Home Clinical Impression: Cervical paraspinal muscle spasm Instructions: DI for Muscle Spasm Activity Restrictions/Additional Instructions: I do recommend that you continue with a conservative measures to include heat/ice/massage/light stretching. You can also take Tylenol. Use the muscle relaxers as needed. Continue your antibiotics as directed. Contact your primary doctor for follow-up. Return to the emergency department for any new or worsening symptoms Prescriptions: No Action losartan 50 mg tablet 50 mg PO DAILY RF: 0 sertraline 100 mg tablet 100 mg PO DAILY RF: 0 simvastatin 10 mg tablet 10 mg PO QPM RF: 0 alprazolam 0.5 mg tablet 0.5 mg PO QID RF: 0 ipratropium-albuterol [Combivent Respimat] 20-100 mcg/actuation mist 1 puff INHALATION ONCE PRN (Reason: asthma) RF: 0 fluticasone propion-salmeterol [Advair Diskus] 100-50 mcg/dose blister with device 1 puff Inhalation BID RF: 0 metoprolol tartrate 25 mg tablet 25 mg PO BID RF: 0 hydrocodone-acetaminophen [[place]] 5-325 mg tablet 1 tab PO Q6H PRN (Reason: pain) Qty: 10 RF: 0 hydrocodone-acetaminophen [[place]] 5-325 mg tablet 1 tab PO Q6HR PRN (Reason: pain) Qty: 10 RF: 0 metronidazole [Flagyl] 500 mg tablet 500 mg PO TID Qty: 21 RF: 0 levofloxacin [Levaquin] 750 mg tablet 750 mg PO DAILY Qty: 7 RF: 0 benzonatate [Tessalon Perles] 100 mg capsule 100 mg PO BID-TID PRN (Reason: cough) Qty: 20 RF: 0 albuterol sulfate 90 mcg/actuation HFA aerosol inhaler 1 puff INHALATION Q4-6H PRN (Reason: shortness of breath or wheezing) Qty: 18 RF: 0 cyclobenzaprine 10 mg tablet 10 mg PO TID PRN (Reason: muscle spasm) Qty: 14 RF: 0 Referrals: Matt Bernard MD [Primary Care Provider] -
[2021-04-11 19:45] LABS: Alanine Aminotransferase 11 IU/L (<35); Albumin 3.3 g/dL (3.5-5.0); Albumin Globulin Ratio 1.1 (1.0-2.8); Alkaline Phosphatase 72 U/L (38-126); Aspartate Aminotransferase 14 IU/L (14-36); BUN Creatinine Ratio 8.1 (6-22); Bilirubin Total 0.4 mg/dL (0.2-1.3); Blood Urea Nitrogen 6 mg/dL (7-17); Calcium 8.2 mg/dL (8.4-10.2); Carbon Dioxide 30 mmol/L (22-32); Chloride 100 mmol/L (98-107); Estimated Glomerular Filt Rate > 60.0 mL/min (>60); Globulin 2.9 g/dL (1.7-4.1); Glucose 109 mg/dL (80-110); HEMOLYSIS < 15 (0-50); Lactate (Lactic Acid) 0.9 mmol/L (0.7-2.1); Lipase 39 U/L (23-300); Potassium 3.8 mmol/L (3.4-5.1); Sodium 134 mmol/L (137-145); Total Protein 6.2 g/dL (6.3-8.2)
[2021-04-11] MEDS: LIDOCAINE 1% (PF) 2 ML INJ (20:00)
[2021-04-11] MEDS: diazePAM 10 MG/2 ML SYRINGE 2 MG IV (20:01)
[2021-04-11 20:02] LABS: Procalcitonin 0.17 ng/mL (<0.5)
[2021-04-11 20:06] LABS: COVID19 - ADMIT (NP swab/PCR) Negative (Negative)
[2021-04-11] MEDS: CYCLOBENZAPRINE 10 MG PREPACK 1 BOTTLE MISC (21:16)
== END 2021-04-11 21:20 | disposition home or self-care (01) ==
PROVIDERS: Emergency Provider Emergency Medicine; PCP Internal Medicine
DX: M62.838 Other muscle spasm (principal); Z20.822 Contact with and (suspected) exposure to COVID-19
CPT/HCPCS: 36415; 80053; 83605; 83690; 84145; 85025; 87040; 87635; 96361; 96374; 99284; C9803; J3360

== ENCOUNTER 2021-04-13 21:10 | Inpatient (IN) | payer MEDICARE, OTHER, BC, SELFPAY ==
[2021-04-13] VITALS (11 sets, daily range): BP systolic 100–114; BP diastolic 50–67; PULSE 87–97; RESP 19–25; TEMP 36.9–37.9; O2SAT 97–99
--- NOTE | 2021-04-13 21:16 | DI.RAD.S_ITS ---
PROCEDURE: XR CHEST 1V INDICATIONS: suspected sepsis TECHNIQUE: One view of the chest was acquired. COMPARISON: [facility], CR, XR CHEST 1V, 11/26/2018, 6:16. FINDINGS: Surgical changes and devices: None. Lungs and pleura: Lungs are clear. No pleural effusions or pneumothorax. Mediastinum: Mediastinal contours appear normal. Heart size is normal. Bones and chest wall: No suspicious bony lesions. Overlying soft tissues appear unremarkable. IMPRESSION: No acute cardiopulmonary disease process. Dictated by: Sonya Moyer MD, PhD on 04/13/2021 at 22:10 Approved by: Sonya Moyer MD, PhD on 04/13/2021 at 22:10
[2021-04-13] MEDS: SODIUM CHLORIDE 0.9% 1,000 ML 1000 ML IV (21:44)
[2021-04-13 21:57] LABS: Add Manual Diff / Slide Review NO; Basophils Absolute Auto 0 /uL (0-100); Basophils Percent Auto 0.3 % (0-2); Eosinophils Absolute Auto 200 /uL (0-450); Eosinophils Percent Auto 2.6 % (2-4); Hematocrit 32.2 % (36-46); Hemoglobin 10.9 g/dL (12.0-16.0); Lymphocytes Absolute Auto 800 /uL (1100-4500); Lymphocytes Percent Auto 11.4 % (25-40); Mean Corpuscular HGB Conc 33.7 % (30-36); Mean Corpuscular Hemoglobin 30.8 PG (26-34); Mean Corpuscular Volume 91.5 fL (80-100); Monocytes Absolute Auto 900 /uL (0-900); Monocytes Percent Auto 13.1 % (3-14); Neutrophils Absolute Auto 5100 /uL (1500-7000); Neutrophils Percent Auto 72.6 % (50-75); Platelet Count 237 X10^3/uL (150-400); Red Blood Cell Count 3.52 X10^6/uL (4.0-5.2); Red Cell Distribution Width 13.8 % (11.6-14.8)
[2021-04-13 22:05] LABS: Alanine Aminotransferase 12 IU/L (<35); BUN Creatinine Ratio 7.8 (6-22); Bilirubin Total 0.7 mg/dL (0.2-1.3); Blood Urea Nitrogen 5 mg/dL (7-17); Calcium 8.4 mg/dL (8.4-10.2); Carbon Dioxide 29 mmol/L (22-32); Chloride 98 mmol/L (98-107); Estimated Glomerular Filt Rate > 60.0 mL/min (>60); Globulin 3.3 g/dL (1.7-4.1); Glucose 92 mg/dL (80-110); Lipase 122 U/L (23-300); Sodium 132 mmol/L (137-145)
[2021-04-13 22:06] LABS: Albumin 3.4 g/dL (3.5-5.0); Aspartate Aminotransferase 27 IU/L (14-36); HEMOLYSIS 138 (0-50); Potassium 4.1 mmol/L (3.4-5.1); Total Protein 6.7 g/dL (6.3-8.2)
[2021-04-13 22:06] LABS: Lactate (Lactic Acid) 0.8 mmol/L (0.7-2.1)
[2021-04-13 22:07] LABS: Alkaline Phosphatase 59 U/L (38-126)
[2021-04-13 22:22] LABS: Procalcitonin 0.84 ng/mL (<0.5)
[2021-04-13] MEDS: ONDANSETRON 4 MG/2 ML INJ IV (23:05)
[2021-04-14] VITALS (20 sets, daily range): BP systolic 93–132; BP diastolic 49–60; PULSE 72–108; RESP 14–28; TEMP 36.9–37.6; O2SAT 92–98; BMI 26.6
--- NOTE | 2021-04-14 00:50 | ED_ITS ---
HPI - Fever General Chief Complaint: Fever Stated Complaint: UNABLE TO GET FEVER DOWN Time Seen by Provider: 04/14/21 00:48 Source: patient Mode of arrival: Ambulatory Limitations: no limitations History of Present Illness HPI Narrative: This is a 75-year-old female comes with complaint of recent colitis which patient has been taking oral Flagyl and Levaquin for for at least 6 days. Patient continues to have fevers at home sometimes up to 101 F. She does have a known colostomy after having what sounds like problem ischemic bowel that time she was significantly ill transferred had a resection, colostomy and w as in the intensive care unit for some time. Since then she has had normal stool output from her colostomy but has noted some increase in mucus and occasional a small amount of blood from her rectal stump. She does normally have occasional mucus drainage. She has continued to have fevers. She has had some generalized pain but does not feel like it is worsening. She denies any chest pain, no shortness of breath, she has not had any cough, cold or congestion. She denies any nausea or vomiting. She has had no dysuria, urgency or frequency. She has noted her urine has been tea-colored and dark. Patient was seen here recently for upper neck discomfort and had what sounds like trigger point injection which was helpful. She denies any severe headaches. She does not have any difficulty with movement of her neck. Patient does take medication for hypertension, dyslipidemia and asthma/COPD. Related Data Home Medications Medication Instructions Recorded Confirmed alprazolam 0.5 mg tablet 0.5 mg PO QID 02/22/18 04/13/21 fluticasone 100 mcg-salmeterol 50 1 puff INHALATION BID 02/22/18 04/13/21 mcg/dose blistr powdr for inhalation (Advair Diskus) losartan 50 mg tablet 50 mg PO DAILY 02/22/18 04/13/21 sertraline 100 mg tablet 100 mg PO DAILY 02/22/18 04/13/21 simvastatin 10 mg tablet 10 mg PO QPM 02/22/18 04/13/21 metoprolol tartrate 25 mg tablet 25 mg PO BID 10/21/18 04/13/21 Previous Rx's Medication Instructions Recorded levofloxacin 750 mg tablet 750 mg PO DAILY #7 tab 11/19/18 (Levaquin) metronidazole 500 mg tablet 500 mg PO TID #21 tab 11/19/18 (Flagyl) albuterol sulfate 90 mcg/actuation 1 puff INHALATION Q4-6H PRN #18 11/26/18 aerosol inhaler gram Allergies Allergy/AdvReac Type Severity Reaction Status Date / Time ciprofloxacin [From Cipro] Allergy Verified 04/11/21 18:53 meperidine [From Demerol] Allergy Verified 04/11/21 18:53 Review of Systems Review of Systems ROS Unobtainable: All systems reviewed & are unremarkable except as noted in HPI and below Patient History Medical History (Updated 04/14/21 @ 05:56 by ADELIA Joshua) Asthma Essential hypertension History of ischemic bowel disease HTN (hypertension) Hyperlipidemia Surgical History (Updated 04/14/21 @ 05:52 by ADELIA Joshua) H/O: hysterectomy Hx laparoscopic cholecystectomy Hx of colectomy Ileostomy present Ileostomy status Family History (Updated 04/14/21 @ 05:53 by ADELIA Joshua) Mother Hypertension Stroke Brother Cancer Hypertension Father Medical history unknown Social History marital status: household members: spouse Smoking Status: Current every day smoker alcohol intake: former Smoking Status: Current every day smoker alcohol intake frequency: 0-2 drinks per day Substance Use Type: does not use Exam Narrative Exam Narrative: GENERAL: Alert and oriented x three, female in mild distress. HEENT: Head normocephalic, atraumatic, EOMI, pupils reactive, face symmetric, moist mucous membranes NECK: Supple, full range of motion, no meningeal signs. Negative Kernig's. No cervical, thoracic or lumbar vertebral tenderness. Patient has normal range of motion. CARDIOVASCULAR: Regular rate and rhythm without murmurs, rubs or gallops. RESPIRATORY: Breath sounds equal bilaterally, no wheezes rales or rhonchi. ABDOMEN: Soft, mild generalized tenderness. Patient has colostomy is draining stool which appears brown/greenish in coloration which is somewhat liquidy. Hyperactive bowel sounds all 4 quadrants. No guarding or rebound, rigidity, no mass, nondistended. : No CVA tenderness EXTREMITIES: Normal range of motion, no clubbing or edema. Neurovascularly intact NEUROLOGICAL: Cranial nerves II through XII grossly intact. Moving all extremities SKIN: Warm, dry, no petechiae, no rashes or lesions. Initial Vital Signs Initial Vital Signs: Vital Signs Temperature 98.4 F 04/13/21 21:12 Pulse Rate 96 H 04/13/21 21:12 Respiratory Rate 22 04/13/21 21:12 Blood Pressure 111/53 L 04/13/21 21:12 Pulse Oximetry 97 04/13/21 21:12 Course Orders Ordered: Acetaminophen (Acetaminophen 325 Mg Tablet) 650 mg PO Q6HR PRN PRN Reason: Fever/Mild Pain (1-3) Last Admin: 04/14/21 21:50 Dose: 650 mg Documented by: Admin: 04/14/21 14:23 Dose: 650 mg Documented by: Admin: 04/14/21 07:48 Dose: 650 mg Documented by: BAREBR Albuterol (Albuterol 2.5 Mg/3 Ml Neb (Adult)) 2.5 mg INH [id number] CRISTINA Last Admin: 04/15/21 12:33 Dose: Not Given Documented by: Admin: 04/15/21 09:42 Dose: 2.5 mg Documented by: Admin: 04/14/21 23:00 Dose: Not Given Documented by: [email or web address] Admin: 04/14/21 20:45 Dose: 2.5 mg Documented by: [email or web address] Admin: 04/14/21 15:26 Dose: 2.5 mg Documented by: Admin: 04/14/21 11:38 Dose: 2.5 mg Documented by: STUART Albuterol (Albuterol 2.5 Mg/3 Ml Neb (Adult)) 2.5 mg INH [id number] PRN PRN Reason: Shortness Of Breath Or Wheezing Last Admin: 04/15/21 00:41 Dose: 2.5 mg Documented by: [email or web address] Alprazolam (Alprazolam 0.5 Mg Tablet) 0.5 mg PO QID PRN PRN Reason: Anxiety Atorvastatin Calcium (Atorvastatin 20 Mg Tablet) 10 mg PO QPM [facility] Last Admin: 04/14/21 16:14 Dose: 10 mg Documented by: DAVID Budesonide (Budesonide 0.5 Mg/2 Ml Neb) 0.5 mg INH RTBID CRISTINA Last Admin: 04/15/21 09:42 Dose: 0.5 mg Documented by: Admin: 04/14/21 20:45 Dose: 0.5 mg Documented by: [email or web address] Cyclobenzaprine HCl (Cyclobenzaprine 10 Mg Tablet) 10 mg PO Q8HR PRN PRN Reason: Spasms Last Admin: 04/14/21 21:13 Dose: 10 mg Documented by: Admin: 04/14/21 14:23 Dose: 10 mg Documented by: BARBER Enoxaparin Sodium (Enoxaparin 40 Mg/0.4 Ml Syringe) 40 mg SUBCUT DAILY [facility] Last Admin: 04/15/21 11:03 Dose: Not Given Documented by: Admin: 04/14/21 09:14 Dose: 40 mg Documented by: BARBER Sodium Chloride (Normal Saline 0.9%) 1,000 mls @ 125 mls/hr IV CONT [facility] Last Admin: 04/15/21 00:24 Dose: 125 mls/hr Documented by: Infusion: 04/15/21 00:14 Dose: 125 mls/hr Documented by: Admin: 04/14/21 16:14 Dose: 125 mls/hr Documented by: Infusion: 04/14/21 12:30 Dose: 125 mls/hr Documented by: Admin: 04/14/21 04:30 Dose: 125 mls/hr Documented by: CHIN Piperacillin Sod/Tazobactam (Sod 3.375 gm/ Sodium Chloride) 100 mls @ 25 mls/hr IV Q8H [facility] Last Admin: 04/15/21 08:50 Dose: 25 mls/hr Documented by: Infusion: 04/15/21 04:22 Dose: 25 mls/hr Documented by: Admin: 04/15/21 00:22 Dose: 25 mls/hr Documented by: Infusion: 04/14/21 20:43 Dose: 25 mls/hr Documented by: Admin: 04/14/21 16:14 Dose: 25 mls/hr Documented by: Infusion: 04/14/21 16:08 Dose: 25 mls/hr Documented by: Admin: 04/14/21 09:13 Dose: 25 mls/hr Documented by: BARBER Losartan Potassium (Losartan 50 Mg Tablet) 50 mg PO DAILY [facility] Last Admin: 04/15/21 10:46 Dose: 50 mg Documented by: Admin: 04/14/21 09:14 Dose: Not Given Documented by: BARBER Metoprolol Tartrate (Metoprolol Ir 25 Mg Tablet) 25 mg PO BID [facility] Last Admin: 04/15/21 10:46 Dose: 25 mg Documented by: Admin: 04/14/21 21:11 Dose: Not Given Documented by: Admin: 04/14/21 09:15 Dose: Not Given Documented by: BARBER Naloxone HCl (Naloxone 0.4 Mg/Ml Vial) 0.2 mg IV Q2MIN PRN PRN Reason: Opiate Reversal Stored In Pharmacy 0 each PO . [facility] Ondansetron HCl (Ondansetron 4 Mg/2 Ml Inj) 4 mg IV Q6HR PRN PRN Reason: Nausea And Vomiting Sertraline HCl (Sertraline 50 Mg Tablet) 100 mg PO BEDTIME [facility] Discontinued Medications Heparin Sodium (Porcine) (Heparin Flush (Cl/Picc/Mid-Line) 50 Unit/5 Ml Syringe) 50 unit IV NOW ONE Stop: 04/14/21 09:08 Last Admin: 04/14/21 09:15 Dose: 50 unit Documented by: BARBER Sodium Chloride (Normal Saline 0.9%) 1,000 mls @ 1,000 mls/hr IV BOLUS ONE Stop: 04/13/21 22:14 Last Infusion: 04/13/21 22:57 Dose: 0 mls/hr Documented by: Admin: 04/13/21 21:44 Dose: 1,000 mls/hr Documented by: TANYA Piperacillin Sod/Tazobactam (Sod 4.5 gm/ Sodium Chloride) 100 mls @ 200 mls/hr IV NOW ONE Stop: 04/14/21 00:59 Last Infusion: 04/14/21 02:15 Dose: 0 mls/hr Documented by: Admin: 04/14/21 01:06 Dose: 200 mls/hr Documented by: SARIKA Sodium Chloride (Normal Saline 0.9%) 1,000 mls @ 1,000 mls/hr IV BOLUS ONE Stop: 04/14/21 02:24 Last Infusion: 04/14/21 03:09 Dose: 0 mls/hr Documented by: Admin: 04/14/21 01:53 Dose: 1,000 mls/hr Documented by: TANYA Sodium Chloride (Normal Saline 0.9%) 1,000 mls @ 1,000 mls/hr IV BOLUS ONE Stop: 04/14/21 03:38 Last Admin: 04/14/21 04:00 Dose: 1,000 mls/hr Documented by: CHIN Piperacillin Sod/Tazobactam (Sod 3.375 gm/ Sodium Chloride) 100 mls @ 25 mls/hr IV Q8H [facility] Last Admin: 04/14/21 16:24 Dose: Not Given Documented by: DAVID Magnesium Sulfate (Magnesium Sulfate) 2 gm in 50 mls @ 25 mls/hr IV NOW ONE Stop: 04/14/21 07:42 Last Admin: 04/14/21 06:32 Dose: 25 mls/hr Documented by: CHIN Cosigned by: CANDIDA Ceftriaxone Sodium 1,000 mg/ (Sodium Chloride) 100 mls @ 200 mls/hr IV Q24H [facility] Last Admin: 04/14/21 16:24 Dose: Not Given Documented by: DAVID Ketorolac Tromethamine (Ketorolac 30 Mg/Ml Vial) 30 mg IV NOW ONE Stop: 04/14/21 02:36 Last Admin: 04/14/21 02:40 Dose: 30 mg Documented by: TANYA Ondansetron HCl (Ondansetron 4 Mg/2 Ml Inj) 4 mg IV NOW ONE Stop: 04/13/21 22:57 Last Admin: 04/13/21 23:05 Dose: 4 mg Documented by: TANYA Sertraline HCl (Sertraline 50 Mg Tablet) 100 mg PO DAILY [facility] Last Admin: 04/14/21 09:14 Dose: 100 mg Documented by: BARBER Zelaya Consultation #1: GRANT Dorado for hospitalist. Patient has setting of fever with colitis on CT failure with oral outpatient antibiotics with negative CXR. Patient does not have an elevated white count but does have elevated neutrophil percentage at 75. And meets septic criteria with fever and heart rate in the 90s with colitis as a potential source of infection. Her procalcitonin is positive today at 0.84 and was negative on April 11 two days prior. Patient had gone to the bathroom while in the department and did not give a sample so have not ruled this out is in a potential cause. Blood cultures were obtained. Hospitalist does request a GI panel and COVID swabbing has been obtained and is pending Vital Signs Vital signs: Vital Signs - 8 hr 04/13/21 21:12 04/13/21 21:18 04/13/21 21:19 Temperature 98.4 F Pulse Rate 96 H 97 H 94 H Respiratory Rate 22 21 Blood Pressure 111/53 L 114/67 Pulse Oximetry 97 97 98 04/13/21 21:30 04/13/21 22:00 04/13/21 22:01 Temperature Pulse Rate 91 H 90 91 H Respiratory Rate 22 20 19 Blood Pressure 110/57 L 106/59 L Pulse Oximetry 97 97 99 04/13/21 22:30 04/13/21 23:00 04/13/21 23:30 Temperature Pulse Rate 87 89 87 Respiratory Rate 19 20 20 Blood Pressure 106/54 L 108/57 L 100/50 L Pulse Oximetry 99 97 97 04/13/21 23:58 04/14/21 00:00 04/14/21 01:20 Temperature 99.5 F Pulse Rate 96 H 94 H Respiratory Rate 25 H 21 Blood Pressure 112/55 L 109/53 L Pulse Oximetry 97 98 MDM - Fever Lab Data Result diagrams: 04/15/21 05:02 04/15/21 05:02 Labs: Lab Results 04/13/21 04/13/21 04/13/21 Range/Units 21:25 21:38 21:38 WBC 7.0 (4.5-11.0) X10^3/uL RBC 3.52 L (4.0-5.2) X10^6/uL Hgb 10.9 L (12.0-16.0) g/dL Hct 32.2 L (36-46) % MCV 91.5 (80-100) fL MCH 30.8 (26-34) PG MCHC 33.7 (30-36) % RDW 13.8 (11.6-14.8) % Plt Count 237 (150-400) X10^3/uL Neut % (Auto) 72.6 (50-75) % Lymph % (Auto) 11.4 L (25-40) % [place] % (Auto) 13.1 (3-14) % Eos % (Auto) 2.6 (2-4) % Baso % (Auto) 0.3 (0-2) % Neut # (Auto) 5100 (3893-6232) /uL Lymph # (Auto) 800 L (7280-4957) /uL [place] # (Auto) 900 (0-900) /uL Eos # (Auto) 200 (0-450) /uL Baso # (Auto) 0 (0-100) /uL Sodium 132 L (137-145) mmol/L Potassium 4.1 (3.4-5.1) mmol/L Chloride 98 (98-107) mmol/L Carbon Dioxide 29 (22-32) mmol/L BUN 5 L (7-17) mg/dL Creatinine 0.64 (0.52-1.04) mg/dL Estimated GFR > 60.0 (>60) mL/min BUN/Creatinine Ratio 7.8 (6-22) Glucose 92 (80-110) mg/dL Lactate 0.8 (0.7-2.1) mmol/L Calcium 8.4 (8.4-10.2) mg/dL Total Bilirubin 0.7 (0.2-1.3) mg/dL AST 27 (14-36) IU/L ALT 12 (<35) IU/L Alkaline Phosphatase 59 (38-126) U/L Total Protein 6.7 (6.3-8.2) g/dL Albumin 3.4 L (3.5-5.0) g/dL Globulin 3.3 (1.7-4.1) g/dL Albumin/Globulin Ratio 1.0 (1.0-2.8) Lipase 122 D (23-300) U/L Procalcitonin 0.84 H (<0.5) ng/mL SARS-CoV-2 (PCR) (Negative) 04/14/21 Range/Units 02:45 WBC (4.5-11.0) X10^3/uL RBC (4.0-5.2) X10^6/uL Hgb (12.0-16.0) g/dL Hct (36-46) % MCV (80-100) fL MCH (26-34) PG MCHC (30-36) % RDW (11.6-14.8) % Plt Count (150-400) X10^3/uL Neut % (Auto) (50-75) % Lymph % (Auto) (25-40) % [place] % (Auto) (3-14) % Eos % (Auto) (2-4) % Baso % (Auto) (0-2) % Neut # (Auto) (1022-3550) /uL Lymph # (Auto) (0468-2562) /uL [place] # (Auto) (0-900) /uL Eos # (Auto) (0-450) /uL Baso # (Auto) (0-100) /uL Sodium (137-145) mmol/L Potassium (3.4-5.1) mmol/L Chloride (98-107) mmol/L Carbon Dioxide (22-32) mmol/L BUN (7-17) mg/dL Creatinine (0.52-1.04) mg/dL Estimated GFR (>60) mL/min BUN/Creatinine Ratio (6-22) Glucose (80-110) mg/dL Lactate (0.7-2.1) mmol/L Calcium (8.4-10.2) mg/dL Total Bilirubin (0.2-1.3) mg/dL AST (14-36) IU/L ALT (<35) IU/L Alkaline Phosphatase (38-126) U/L Total Protein (6.3-8.2) g/dL Albumin (3.5-5.0) g/dL Globulin (1.7-4.1) g/dL Albumin/Globulin Ratio (1.0-2.8) Lipase (23-300) U/L Procalcitonin (<0.5) ng/mL SARS-CoV-2 (PCR) Negative (Negative) Imaging Data CT scan - abdomen/pelvis: Radiologist's Impression: [address] [id number] Scan ReportSigned Patient: Mary Payan DMR#: [id number]: [id number]:[id number] e/Sex: 75 / FDate of Service: 04/14/21Loc: EDAccession Number: [id number] Procedure: CT abdomen pelvis w con Ordering Provider: Maribel Myers D.O. PROCEDURE: CT ABDOMEN PELVIS W CON INDICATIONS: ? colitis, fevers TECHNIQUE: After the administration of intravenous contrast, axial sections acquired from the lung bases to the pubic symphysis. Coronal and sagittal reformats were performed. For radiation dose reduction, the following was used: automated exposure control, adjustment of mA and/or kV according to patient size. COMPARISON: None. FINDINGS: Image quality: Excellent. Lung bases: Unremarkable. Heart: No significant findings. ABDOMEN: Liver: Unremarkable. Gallbladder: Surgically absent Biliary ducts: Unremarkable. Pancreas: Unremarkable. Spleen: Unremarkable. Adrenal Glands: Unremarkable. Kidneys and Ureters: Unremarkable. Stomach and Bowel: Stomach, small bowel loops, and colon are unremarkable. Postsurgical changes compatible with partial colectomy. There is diffuse circumferential wall thickening with mild adjacent mesenteric inflammation involving the colon compatible with nonspecific colitis. Peritoneum: No abnormal intraperitoneal fluid. No free air. Ventral Wall: There is a left paramedian supraumbilical ventral hernia which contains short loop of normal-appearing small bowel. There is a right lower quadrant ileostomy. 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 Abdominal Nodes: No retroperitoneal or mesenteric adenopathy by size criteria. Vessels: Aorta and inferior vena cava are normal in size. PELVIS: Pelvic Organs: Unremarkable. Bladder: Unremarkable. Pelvic Nodes: No enlarged lymph nodes. Miscellaneous: No hernias are seen. Bones: Spine degenerative disc disease and facet arthropathy. IMPRESSION: 1. Status post partial colectomy. 2. Diffuse circumferential wall thickening with mild adjacent inflammation involving the colon compatible with nonspecific colitis. Differential diagnosis includes inflammatory processes, infection and less likely ischemic or neoplastic processes. 3. Status post right lower quadrant ileostomy with large junie-stoma hernia which contains multiple loops of unremarkable appearing small bowel. 4. Small left supraumbilical ventral hernia which contains short loop of unremarkable appearing small bowel. Dictated by: Sonya Moyer MD, PhD on 04/14/2021 at 1:51 Approved by: Sonya Moyer MD, PhD on 04/14/2021 at 1:57 ECG Data Attestation: I personally reviewed and interpreted this ECG as follows: Prior ECG tracings: not available for review Interpretation: Sinus rhythm rate of 92 [place] 142 QRS of 76 QTC of 437. No acute ST changes. Discharge Plan Departure Patient Disposition: Admitted As Inpatient Clinical Impression: Colitis Admit Date/Time: 04/14/21 02:50 Admit Provider: Marla Dorado
--- NOTE | 2021-04-14 00:58 | DI.CT.S_ITS ---
PROCEDURE: CT ABDOMEN PELVIS W CON INDICATIONS: ? colitis, fevers TECHNIQUE: After the administration of intravenous contrast, axial sections acquired from the lung bases to the pubic symphysis. Coronal and sagittal reformats were performed. For radiation dose reduction, the following was used: automated exposure control, adjustment of mA and/or kV according to patient size. COMPARISON: None. FINDINGS: Image quality: Excellent. Lung bases: Unremarkable. Heart: No significant findings. ABDOMEN: Liver: Unremarkable. Gallbladder: Surgically absent Biliary ducts: Unremarkable. Pancreas: Unremarkable. Spleen: Unremarkable. Adrenal Glands: Unremarkable. Kidneys and Ureters: Unremarkable. Stomach and Bowel: Stomach, small bowel loops, and colon are unremarkable. Postsurgical changes compatible with partial colectomy. There is diffuse circumferential wall thickening with mild adjacent mesenteric inflammation involving the colon compatible with nonspecific colitis. Peritoneum: No abnormal intraperitoneal fluid. No free air. Ventral Wall: There is a left paramedian supraumbilical ventral hernia which contains short loop of normal-appearing small bowel. There is a right lower quadrant ileostomy. 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 Abdominal Nodes: No retroperitoneal or mesenteric adenopathy by size criteria. Vessels: Aorta and inferior vena cava are normal in size. PELVIS: Pelvic Organs: Unremarkable. Bladder: Unremarkable. Pelvic Nodes: No enlarged lymph nodes. Miscellaneous: No hernias are seen. Bones: Spine degenerative disc disease and facet arthropathy. IMPRESSION: 1. Status post partial colectomy. 2. Diffuse circumferential wall thickening with mild adjacent inflammation involving the colon compatible with nonspecific colitis. Differential diagnosis includes inflammatory processes, infection and less likely ischemic or neoplastic processes. 3. Status post right lower quadrant ileostomy with large junie-stoma hernia which contains multiple loops of unremarkable appearing small bowel. 4. Small left supraumbilical ventral hernia which contains short loop of unremarkable appearing small bowel. Dictated by: Sonya Moyer MD, PhD on 04/14/2021 at 1:51 Approved by: Sonya Moyer MD, PhD on 04/14/2021 at 1:57
[2021-04-14] MEDS: PIPERACILLIN/TAZO 4.5 GM in SODIUM CHLORIDE 0.9% 100 ML 200 ML IV (01:06)
[2021-04-14] MEDS: SODIUM CHLORIDE 0.9% 1,000 ML 1000 ML IV ×2 (01:53→04:00)
[2021-04-14] MEDS: KETOROLAC 30 MG/ML VIAL IV (02:40)
[2021-04-14 03:30] LABS: COVID19 - ADMIT (NP swab/PCR) Negative (Negative)
[2021-04-14] MEDS: SODIUM CHLORIDE 0.9% 1,000 ML 125 ML IV ×2 (04:30→16:14)
[2021-04-14 04:56] LABS: Clostridium Difficile Tox PCR Negative for C. diff (Negative)
[2021-04-14 05:15] LABS: Add Manual Diff / Slide Review NO; Basophils Absolute Auto 0 /uL (0-100); Basophils Percent Auto 0.4 % (0-2); Eosinophils Absolute Auto 200 /uL (0-450); Eosinophils Percent Auto 2.7 % (2-4); Lymphocytes Absolute Auto 1000 /uL (1100-4500); Mean Corpuscular HGB Conc 33.4 % (30-36); Mean Corpuscular Hemoglobin 30.5 PG (26-34); Mean Corpuscular Volume 91.2 fL (80-100); Monocytes Absolute Auto 800 /uL (0-900); Monocytes Percent Auto 12.5 % (3-14); Neutrophils Absolute Auto 4400 /uL (1500-7000); Neutrophils Percent Auto 68.4 % (50-75); Platelet Count 241 X10^3/uL (150-400); Red Blood Cell Count 3.29 X10^6/uL (4.0-5.2); Red Cell Distribution Width 13.8 % (11.6-14.8); White Blood Cell Count 6.4 X10^3/uL (4.5-11.0)
--- NOTE | 2021-04-14 05:15 | P.HP_ITS ---
History of Present Illness History of Present Illness Date Patient Seen: 04/14/21 Time Patient Seen: 04:00 Chief complaint: Fever, UTI, diversion colitis Narrative: Mary Payan is a pleasant 75 y.o. 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 She is being requested by the emergency department for admission for colitis. Patient states that she has had a fever that ranges from 100.3 to 100.8, she has had a poor appetite. She denies chills, difficulty swallowing, chest pain, shortness of breath, she does endorse having a large ventral hernia underneath her ileostomy. CT of the abdomen and pelvis indicated ? Diffuse circumferential wall thickening with mild adjacent inflammation involving the colon compatible with nonspecific colitis. Differential diagnosis includes inflammatory processes, infection and less likely ischemic or neoplastic processes. The report also identified both a large and small hernia with loops of unremarkable bowel. Patient's T-max was 100.3? and currently is 99.6, blood pressure 108/60, heart rate 99, respiratory rate 24, oxygen saturation 96% on room air, she weighs 78.4 kg with a BMI of 26.6. CBC is unremarkable except for mild anemia with a hemoglobin of 10.0 and hematocrit of 30, sodium 134, rest of her life her lytes are within normal limits, magnesium was 1.5, albumin was 3.4, calcium was 7.9, but the corrected calcium is 8.4 which is normal, and procalcitonin was elevated at 0.84. C difficile PCR is negative, U/A just returned positive and stool cultures are pending. Approximately 2 years ago she was evaluated by Dr. Casey regarding reversal of her ileostomy and the ventral hernia repair. In her note she declined to pursue surgery due to the fact that the patient had had wound healing by intention rather than surgical closure and that the surgery was likely too complicated and would require meshes that were not available here at this facility and recommended that the patient be further evaluated and treated at [facility] where she had her original surgery. Patient History Medical History (Updated 04/14/21 @ 05:56 by ADELIA Joshua) Asthma Essential hypertension History of ischemic bowel disease HTN (hypertension) Hyperlipidemia Surgical History (Updated 04/14/21 @ 05:52 by ADELIA Joshua) H/O: hysterectomy Hx laparoscopic cholecystectomy Hx of colectomy Ileostomy present Ileostomy status Family & Social History Family History (Updated 04/14/21 @ 05:53 by ADELIA Joshua) Mother Hypertension Stroke Brother Cancer Hypertension Father Medical history unknown Social History: household members spouse Prior Living Arrangements RV Safety & Behavioral: Feels Safe in Current Yes Environment Been Physically Hurt or No Threatened By a Person Suicidal Ideation Description None Suicide Plan Description No Plan Tobacco & Substance use: Tobacco type cigarettes 2/day Smoking Status Current every day smoker alcohol intake former alcohol intake frequency other Substance Use Type does not use 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, 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 [place] Medications and Allergies Home Medications Medication Instructions Recorded Confirmed Type alprazolam 0.5 mg tablet 0.5 mg PO QID 02/22/18 04/13/21 History fluticasone 100 mcg-salmeterol 50 1 puff INHALATION BID 02/22/18 04/13/21 History mcg/dose blistr powdr for inhalation (Advair Diskus) losartan 50 mg tablet 50 mg PO DAILY 02/22/18 04/13/21 History sertraline 100 mg tablet 100 mg PO DAILY 02/22/18 04/13/21 History simvastatin 10 mg tablet 10 mg PO QPM 02/22/18 04/13/21 History metoprolol tartrate 25 mg tablet 25 mg PO BID 10/21/18 04/13/21 History levofloxacin 750 mg tablet 750 mg PO DAILY #7 tab 11/19/18 04/13/21 Rx (Levaquin) metronidazole 500 mg tablet 500 mg PO TID #21 tab 11/19/18 04/13/21 Rx (Flagyl) albuterol sulfate 90 mcg/actuation 1 puff INHALATION Q4-6H PRN #18 11/26/18 04/13/21 Rx aerosol inhaler gram Allergies Allergy/AdvReac Type Severity Reaction Status Date / Time ciprofloxacin [From Cipro] Allergy Verified 04/11/21 18:53 meperidine [From Demerol] Allergy Verified 04/11/21 18:53 Review of Systems Review of Systems ROS: Yes All systems reviewed with the patient and are negative except as ot herwise documented Exam Vital Signs (past 8 hours): - 04/13/21 21:16 04/13/21 21:18 04/13/21 21:19 Temperature 100.3 F H Pulse Rate 97 H 94 H Respiratory Rate 21 Blood Pressure 114/67 Pulse Oximetry 97 98 04/13/21 21:30 04/13/21 22:00 04/13/21 22:01 Temperature Pulse Rate 91 H 90 91 H Respiratory Rate 22 20 19 Blood Pressure 110/57 L 106/59 L Pulse Oximetry 97 97 99 04/13/21 22:30 04/13/21 23:00 04/13/21 23:30 Temperature Pulse Rate 87 89 87 Respiratory Rate 19 20 20 Blood Pressure 106/54 L 108/57 L 100/50 L Pulse Oximetry 99 97 97 04/13/21 23:58 04/14/21 00:00 04/14/21 00:30 Temperature Pulse Rate 96 H 94 H 93 H Respiratory Rate 25 H 21 21 Blood Pressure 112/55 L 109/53 L 114/54 L Pulse Oximetry 97 98 96 04/14/21 01:00 04/14/21 01:20 04/14/21 01:58 Temperature 99.5 F Pulse Rate 93 H 101 H Respiratory Rate 20 21 Blood Pressure 99/49 L Pulse Oximetry 95 97 04/14/21 01:59 04/14/21 02:00 04/14/21 02:30 Temperature Pulse Rate 98 H 99 H 96 H Respiratory Rate 24 20 Blood Pressure 119/56 L 109/54 L 93/53 L Pulse Oximetry 97 97 97 04/14/21 03:00 04/14/21 03:20 04/14/21 04:13 Temperature 99.6 F 99.6 F Pulse Rate 95 H 99 H Respiratory Rate 28 H 24 Blood Pressure 95/54 L 108/60 Pulse Oximetry 97 96 Oxygen Delivery Method Room Air Oxygen Flow Rate 0 Narrative Exam Narrative: Gen: Alert, oriented, well-developed 75 y.o. female, appears fatigued HEENT: normocephalic, atraumatic, conjunctiva clear, sclera non-icteric, oral mucosa pink and moist Neck: supple, full ROM, no JVD, trachea is midline Resp: Lungs CTA, non-labored breathing CV: RRR, no murmur or rubs Abd: large ventral hernia, intact illeostomy, stoma pink draining dark clear liquid stool, non-tender, hypoactive BTs Skin: no lesions or rashes, dry and intact Neuro: Alert and oriented X 4 w/no focal deficits. Speech clear and coherent. Extremities: moves all 4 extremities, is ambulatory, negative Diane?s sign Psyche: normal mood and affect Objective Labs Result Diagrams: 04/14/21 05:00 04/14/21 05:00 Labs: Laboratory Results - last 24 hr 04/13/21 04/13/21 04/13/21 21:25 21:38 21:38 WBC 7.0 RBC 3.52 L Hgb 10.9 L Hct 32.2 L MCV 91.5 MCH 30.8 MCHC 33.7 RDW 13.8 Plt Count 237 Neut % (Auto) 72.6 Lymph % (Auto) 11.4 L [place] % (Auto) 13.1 Eos % (Auto) 2.6 Baso % (Auto) 0.3 Neut # (Auto) 5100 Lymph # (Auto) 800 L [place] # (Auto) 900 Eos # (Auto) 200 Baso # (Auto) 0 Sodium 132 L Potassium 4.1 Chloride 98 Carbon Dioxide 29 BUN 5 L Creatinine 0.64 Estimated GFR > 60.0 BUN/Creatinine Ratio 7.8 Glucose 92 Lactate 0.8 Calcium 8.4 Total Bilirubin 0.7 AST 27 ALT 12 Alkaline Phosphatase 59 Total Protein 6.7 Albumin 3.4 L Globulin 3.3 Albumin/Globulin Ratio 1.0 Lipase 122 D Procalcitonin 0.84 H C. difficile Tox (PCR) SARS-CoV-2 (PCR) 04/14/21 04/14/21 02:45 03:45 WBC RBC Hgb Hct MCV MCH MCHC RDW Plt Count Neut % (Auto) Lymph % (Auto) [place] % (Auto) Eos % (Auto) Baso % (Auto) Neut # (Auto) Lymph # (Auto) [place] # (Auto) Eos # (Auto) Baso # (Auto) Sodium Potassium Chloride Carbon Dioxide BUN Creatinine Estimated GFR BUN/Creatinine Ratio Glucose Lactate Calcium Total Bilirubin AST ALT Alkaline Phosphatase Total Protein Albumin Globulin Albumin/Globulin Ratio Lipase Procalcitonin C. difficile Tox (PCR) Negative for c. diff SARS-CoV-2 (PCR) Negative Assessment & Plan Assessment & Plan narrative: Mary Payan will be admitted for treatment and management of a UTI, div ersion colitis and fever. 1. Diversion colitis * Have requested a consult by the interstomal wound care nurse * Have requested nutritional consult on appropriate foods for a person with malabsorption of the got 2. Urinary tract infection, acute, present on admission * Patient was initially started on IV Zosyn for what was presumed to be a general colitis. I have changed her antibiotic to IV ceftriaxone to address the urinary tract infection which is likely the cause of her infection and elevated procalcitonin. 3. Mild metabolic derangements, acute, present on admission * Sodium was 134, have started IV normal saline at 125 mL/hour * magnesium was 1.5, she has been started on 2 g of IV magnesium riders * Calcium was 7.9 however corrected calcium is 8.4 which is within normal limits 4. Essential hypertension, chronic * She is currently normotensive and may need to have her blood pressure m edications held this morning 5. Hyperlipidemia, chronic * Continue home dose of simvastatin 10 mg p.o. at bedtime 6. Panic disorder, chronic * Continue home dose of sertraline 100 mg p.o. daily and alprazolam 0.5 mg p.o. q.i.d. as needed VTE Prophylaxis: Wells risk score 0 Enoxaparin 40 mg subQ once daily Patient is admitted to the inpatient service due to the severity of disease, risks of further disease progression and this stay is expected to exceed 2 midnights. FEN: IV fluids: NS at 125 ml/hour, diet: general high fiber diet, labs: CBC, C/BMP, liver enzymes, Mag Consultants None Code status: DNR/DNI as discussed with the patient who identifies spouse Festus Payan as her surrogate and POA. I have utilized all available immediate resources (patient, family member, internal and external medical records) to obtain, update, or review the patient?s current home medications. COVID-19 COVID-19 status: Negative Result date/Date tested (Pos, Neg/Pending): 04/14/21 Scores Wells' Criteria for PE Clinical signs and symptoms of DVT: No PE is #1 Dx or equally likely: No Heart rate > 100: No Immobilization at least 3 days or surg in previous 4 weeks: No History of PE or DVT: No Hemoptysis: No Malignancy w/Treatment within 6 months or palliative: No Wells' PE Score total: 0 Quality VTE Deep Vein Thrombosis/Pulmonary Embolism Present on Admission: No MIPS - Admit I confirm the patient?s Advance Care Plan is present, Code status is documented, Surrogate decision maker is in patient?s record [If Yes, STOP here]: Yes
[2021-04-14 05:26] LABS: BUN Creatinine Ratio 6.1 (6-22); Blood Urea Nitrogen 4 mg/dL (7-17); Calcium 7.9 mg/dL (8.4-10.2); Carbon Dioxide 24 mmol/L (22-32); Chloride 105 mmol/L (98-107); Estimated Glomerular Filt Rate > 60.0 mL/min (>60); Glucose 106 mg/dL (80-110); HEMOLYSIS < 15 (0-50); Magnesium 1.5 mg/dL (1.6-2.3); Potassium 3.5 mmol/L (3.4-5.1); Sodium 134 mmol/L (137-145)
[2021-04-14 05:43] LABS: Bacteria Urine None Seen; WBC Urine None Seen (0-5/HPF)
[2021-04-14 05:46] LABS: Appearance Urine UA CLEAR; Bilirubin Urine UA NEGATIVE (NEGATIVE); Color Urine UA YELLOW; Glucose Urine UA NEGATIVE (Negative); Ketones Urine UA NEGATIVE (NEGATIVE); Leukocyte Esterase Urine UA NEGATIVE (NEGATIVE); Nitrite Urine UA POSITIVE (Negative); Occult Blood Urine UA 1+ (Negative); Protein Urine UA NEGATIVE (Negative); Specific Gravity Urine UA <=1.005 (1.000-1.035); Urobilinogen Urine UA 0.2 E.U./dL (0.2)
[2021-04-14 05:50] LABS: Culture Indicated Urine Cult Not Indicated; RBC Urine 0-1/HPF (0-5/HPF)
[2021-04-14] MEDS: MAGNESIUM SULFATE 2 GM/50 ML PIGGYBACK IV (06:32)
[2021-04-14 06:34] LABS: Procalcitonin 0.86 ng/mL (<0.5)
[2021-04-14] MEDS: ACETAMINOPHEN 325 MG TABLET 650 MG PO ×3 (07:48→21:50)
[2021-04-14] MEDS: PIPERACILLIN/TAZO 3.375 GM in SODIUM CHLORIDE 0.9% 100 ML 25 ML IV ×2 (09:13→16:14)
[2021-04-14] MEDS: SERTRALINE 50 MG TABLET 100 MG PO (09:14)
[2021-04-14] MEDS: ENOXAPARIN 40 MG/0.4 ML SYRINGE SUBCUT (09:14)
[2021-04-14] MEDS: ALBUTEROL 2.5 MG/3 ML NEB (ADULT) INH ×3 (11:38→20:45)
[2021-04-14] MEDS: CYCLOBENZAPRINE 10 MG TABLET PO ×2 (14:23→21:13)
--- NOTE | 2021-04-14 14:28 | CM.DANOTE ---
DCP: Case received, EMR reviewed and met with patient. Introduced self and role. Was able to obtain information regarding patient's baseline activity status prior to hospitalization, as well as her current living situation. DCP assessment completed with information currently available. Patient is a 75 year old female who admitted early this morning to the care of the hospitalist team. PCP: Dr. Bernard. Payer: confirmed: Medicare. Patient came to the hospital via private vehicle secondary to having a fever and abdominal pain. PCP: Dr. Bernard. Payer: confirmed: Medicare. Patient came to the hospital via private vehicle secondary to having a fever, as well as some abdominal discomfort. Patient holds current diagnosis of UTI, as well as Colitis. Patient has history of COPD, and has an ileostomy, that she has been managing. Met with patient in her room. She is pleasant, and was laying in bed. She resides in her RV with her , Festus, in [place]. She indicated that they had sold their home with the idea of being able to travel, but due to some health conditions, have not been able to do so. She is independent, drives, and uses no DME at her baseline. P: DCP to continue to follow. Patient should be able to go home when she is deemed medically stable. Flores Meyer, MICHAEL/Monitoring And Evaluation Advisor
--- NOTE | 2021-04-14 15:31 | PC.NURSE ---
A&Ox4. BP slightly low at 107/58, held BP medication. Had a 6/10 headache this morning, was given PRN tylenol which did not seem to help much. She developed a temp of 100.6 and was again given PRN tylenol and PRN cyclobenzaprine which did seem to help her headache. She is independent in the room and calls for help appropriately. Ileosotomy draining green liquid stools. Call light within reach, bed low.
--- NOTE | 2021-04-14 15:47 | DIET.PN ---
Dietary Progress Note RD Note: 75y F admitted for fever, UTI, colitis referred to nutrition for appropriate bulking ileostomy friendly diet while in hospital. Kitchen sending ileostomy friendly diet to pt with focus on addition of bulking foods (yogurt, blended oats, banana) to thicken output without clogging stoma.
[2021-04-14] MEDS: ATORVASTATIN 20 MG TABLET 10 MG PO (16:14)
[2021-04-14] MEDS: BUDESONIDE 0.5 MG/2 ML NEB INH (20:45)
[2021-04-15] VITALS (8 sets, daily range): BP systolic 105–127; BP diastolic 54–68; PULSE 73–104; RESP 16–20; TEMP 36.8–37.6; O2SAT 95–99
[2021-04-15] MEDS: PIPERACILLIN/TAZO 3.375 GM in SODIUM CHLORIDE 0.9% 100 ML 25 ML IV ×3 (00:22→16:45)
[2021-04-15] MEDS: SODIUM CHLORIDE 0.9% 1,000 ML 125 ML IV ×2 (00:24→16:45)
[2021-04-15] MEDS: ALBUTEROL 2.5 MG/3 ML NEB (ADULT) INH ×4 (00:41→19:08)
[2021-04-15 05:22] LABS: Add Manual Diff / Slide Review NO; Basophils Absolute Auto 0 /uL (0-100); Basophils Percent Auto 0.4 % (0-2); Eosinophils Absolute Auto 200 /uL (0-450); Eosinophils Percent Auto 2.1 % (2-4); Hematocrit 27.6 % (36-46); Hemoglobin 9.2 g/dL (12.0-16.0); Lymphocytes Absolute Auto 800 /uL (1100-4500); Lymphocytes Percent Auto 11.4 % (25-40); Mean Corpuscular HGB Conc 33.4 % (30-36); Mean Corpuscular Hemoglobin 30.3 PG (26-34); Mean Corpuscular Volume 90.8 fL (80-100); Monocytes Absolute Auto 800 /uL (0-900); Monocytes Percent Auto 10.7 % (3-14); Neutrophils Absolute Auto 5400 /uL (1500-7000); Neutrophils Percent Auto 75.4 % (50-75); Platelet Count 258 X10^3/uL (150-400); Red Blood Cell Count 3.04 X10^6/uL (4.0-5.2); Red Cell Distribution Width 13.9 % (11.6-14.8); White Blood Cell Count 7.2 X10^3/uL (4.5-11.0)
[2021-04-15 05:26] LABS: Blood Urea Nitrogen 3 mg/dL (7-17); Calcium 7.6 mg/dL (8.4-10.2); Carbon Dioxide 25 mmol/L (22-32); Chloride 107 mmol/L (98-107); Estimated Glomerular Filt Rate > 60.0 mL/min (>60); Glucose 108 mg/dL (80-110); HEMOLYSIS < 15 (0-50); Magnesium 1.8 mg/dL (1.6-2.3); Potassium 3.4 mmol/L (3.4-5.1); Sodium 134 mmol/L (137-145)
[2021-04-15] MEDS: BUDESONIDE 0.5 MG/2 ML NEB INH ×2 (09:42→19:08)
[2021-04-15] MEDS: LOSARTAN 50 MG TABLET PO (10:46)
[2021-04-15] MEDS: METOPROLOL IR 25 MG TABLET PO ×2 (10:46→20:27)
[2021-04-15 11:48] LABS: Adenovirus F 40/41 Not Detected (Not Detect); Astrovirus Not Detected (Not Detect); Campylobacter Not Detected (Not Detect); Clostridium difficile toxin AB Not Detected (Not Detect); Cryptosporidium Not Detected (Not Detect); Cyclospora cayetanensis Not Detected (Not Detect); Entamoeba histolytica Not Detected (Not Detect); Enteroaggregative E.coli Not Detected (Not Detect); Enteropathogenic E.coli Not Detected (Not Detect); Enterotoxigenic E.coli It/st Not Detected (Not Detect); Giardia lamblia Not Detected (Not Detect); Norovirus GI/GII Not Detected (Not Detect); Plesiomonsa shigelloides Not Detected (Not Detect); Rotavirus A Not Detected (Not Detect); Salmonella Not Detected (Not Detect); Sapovirus Not Detected (Not Detect); Shiga-like toxin-prod E.coli Not Detected (Not Detect); Shigella/Enteroinvasive E.coli Not Detected (Not Detect); Vibrio Not Detected (Not Detect); Vibrio cholerae Not Detected (Not Detect); Yersinia enterocolitica Not Detected (Not Detect)
--- NOTE | 2021-04-15 14:43 | PM.PN.1 ---
Subjective Subjective Date Patient Seen: 04/15/21 Time Patient Seen: 14:43 Interval history: Still with continued passage of mucous and blood from her rectum, though abdominal pain has improved. Feeling a bit stronger today, no nausea or vomiting. Exam Vital Signs (past 8 hours): - 04/15/21 08:00 04/15/21 09:47 04/15/21 12:00 Temperature 98.3 F 99.0 F Pulse Rate 104 H 77 95 H Respiratory Rate 19 16 18 Blood Pressure 127/64 121/68 Pulse Oximetry 96 97 99 Oxygen Delivery Method Room Air Oxygen Flow Rate 0 Narrative Exam Narrative: Gen: Alert, oriented, well-developed 75 y.o. female, appears fatigued HEENT: normocephalic, atraumatic, conjunctiva clear, sclera non-icteric, oral mucosa pink and moist Neck: supple, full ROM, no JVD, trachea is midline Resp: Lungs CTA, non-labored breathing CV: RRR, no murmur or rubs Abd: large ventral hernia, stoma draining liquid stool and gas in bag, minimal suprapubic and LLQ tenderness, improved. Skin: no lesions or rashes, dry and intact Neuro: Alert and oriented X 4 w/no focal deficits. Speech clear and coherent. Extremities: no edema or joint effusions Psyche: normal mood and affect Objective Labs Result Diagrams: 04/15/21 05:02 04/15/21 05:02 Labs: Laboratory Results - last 24 hr 04/14/21 04/15/21 04/15/21 03:45 05:02 05:02 WBC 7.2 RBC 3.04 L Hgb 9.2 L Hct 27.6 L MCV 90.8 MCH 30.3 MCHC 33.4 RDW 13.9 Plt Count 258 Neut % (Auto) 75.4 H Lymph % (Auto) 11.4 L [place] % (Auto) 10.7 Eos % (Auto) 2.1 Baso % (Auto) 0.4 Neut # (Auto) 5400 Lymph # (Auto) 800 L [place] # (Auto) 800 Eos # (Auto) 200 Baso # (Auto) 0 Sodium 134 L Potassium 3.4 Chloride 107 Carbon Dioxide 25 BUN 3 L Creatinine 0.60 Estimated GFR > 60.0 BUN/Creatinine Ratio 5.0 L Glucose 108 Calcium 7.6 L Magnesium 1.8 Stl C. cayetanensis PCR Not detected Stool Rotavirus (PCR) Not detected Stool Adenovirus (PCR) Not detected Stool Astrovirus (PCR) Not detected Stool Cryptosporidium PCR Not detected Stl E.coli Shiga Tox PCR Not detected St Sh/Enteroin Ecoli PCR Not detected Stool E coli O157 PCR Not detected Stl Enterotoxigenic E PCR Not detected Stool EPEC (PCR) Not detected Stl E. histolytica PCR Not detected Stool Giardia Lamblia PCR Not detected Stool Sapovirus (PCR) Not detected Stl P. shigelloides PCR Not detected St Y.enterocolitica PCR Not detected Stool Vibrio (PCR) Not detected Stl Vibrio cholerae PCR Not detected Stl Enteroaggr Ecoli PCR Not detected Stl Norovirus GI/GII PCR Not detected Campylobacter (PCR) Not detected C. difficile Tox (PCR) Not detected Salmonella (PCR) Not detected PFSH Medical History (Updated 04/14/21 @ 05:56 by ADELIA Joshua) Asthma Essential hypertension History of ischemic bowel disease HTN (hypertension) Hyperlipidemia Surgical History (Updated 04/14/21 @ 05:52 by ADELIA Joshua) H/O: hysterectomy Hx laparoscopic cholecystectomy Hx of colectomy Ileostomy present Ileostomy status Family History (Updated 04/14/21 @ 05:53 by ADELIA Joshua) Mother Hypertension Stroke Brother Cancer Hypertension Father Medical history unknown Social History marital status: household members: spouse Smoking Status: Current every day smoker alcohol intake: former Assessment & Plan Assessment & Plan narrative: Mary Payan is a 75 year old female with PMH of HTN, HLD, complex abdominal surgical history including partial colectomy with diverting ileostomy, complicated by hernia, not recommended for repair. 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 If no further improvement with zosyn therapy consider steroids as crohn's disease is listed as a possible differential per GI physician at [facility]. She had previously refused surgical interventions (resection). - would recommend follow up with her outpatient GI if discharged. She has not expressed interest thus far in surgical management. -appreciate Dr. Lubin's time and recommendations today. 2. Urinary tract infection, acute, present on admission - on zosyn as noted above. 3. hyponatremia, hypomagnesemia, acute, present on admission - likely secondary to GI losses. now improved with IVF. 4. Essential hypertension, chronic Continue home medications. 5. Hyperlipidemia, chronic Continue home dose of simvastatin 10 mg p.o. at bedtime 6. Panic disorder, chronic Continue home dose of sertraline 100 mg p.o. daily and alprazolam 0.5 mg p.o. q.i.d. as needed VTE Prophylaxis: Enoxaparin 40 mg subQ once daily Code status: DNR/DNI as discussed with the patient who identifies spouse Festus Payan as her surrogate and POA. I have utilized all available immediate resources (patient, family member, internal and external medical records) to obtain, update, or review the patient?s current home medications. COVID-19 COVID-19 status: Negative Result date/Date tested (Pos, Neg/Pending): 04/14/21 Quality VTE Deep Vein Thrombosis/Pulmonary Embolism Present on Admission: No
[2021-04-15] MEDS: ATORVASTATIN 20 MG TABLET 10 MG PO (16:45)
[2021-04-15] MEDS: ACETAMINOPHEN 325 MG TABLET 650 MG PO (16:45)
--- NOTE | 2021-04-15 17:14 | DIET.PN ---
Dietary Progress Note Assessment: 75y F admitted for fever and colitis referred to nutrition for ileostomy appropriate diet. Pt has had her ileostomy since 2016, medical team not sure dx but leaning towards Crohns Disease. Pt states she generally manages well, tends to avoid dairy (secondary to bloating and air in ostomy appliance. Pt ate significant amount of sour cream last week prior to this current episode and pt has been worried about her partner and home finances, etc lately more than usual. Usual Day: B: pb toast L: almond milk smoothie D: soft cooked protein, white rice Pt desires more options for vegetables that are safe to eat. HT: 171.4cm WT: 78kg BMI: 26.5 Interventions: 1. Provided pt handout on suggestions for safe, ileostomy friendly, nutrient dense food choices with reminder to chew food well. 2. Provided pt Ileostomy Nutrition Therapy document for review on safe vs. foods to be cautious with. Diet Order: no seeds/skins, dairy reduced
[2021-04-15] MEDS: ALPRAZolam 0.5 MG TABLET PO (20:27)
[2021-04-15] MEDS: SERTRALINE 50 MG TABLET 100 MG PO (20:27)
[2021-04-16] VITALS (16 sets, daily range): BP systolic 112–124; BP diastolic 52–76; PULSE 83–102; RESP 18–20; TEMP 36.3–39.3; O2SAT 93–99
[2021-04-16] MEDS: ACETAMINOPHEN 325 MG TABLET 650 MG PO ×2 (00:11→20:02)
[2021-04-16] MEDS: PIPERACILLIN/TAZO 3.375 GM in SODIUM CHLORIDE 0.9% 100 ML 25 ML IV ×3 (00:12→16:40)
[2021-04-16] MEDS: SODIUM CHLORIDE 0.9% 1,000 ML 125 ML IV ×2 (00:12→08:18)
[2021-04-16] MEDS: ALBUTEROL 2.5 MG/3 ML NEB (ADULT) INH ×5 (00:46→19:27)
[2021-04-16] MEDS: BENZONATATE 100 MG CAPSULE 200 MG PO ×3 (02:10→18:15)
--- NOTE | 2021-04-16 02:25 | PC.NURSE ---
Dr. Solomon was called at 0135 per patient request for Benzonatate 200mg which is what she takes at home for this cough. Patient is having coughing episodes that were not relieved after a treatment given by RT. Verbal orders were given for Benzonatate 200 mg were given. No other requests at this time.
[2021-04-16 06:28] LABS: Add Manual Diff / Slide Review NO; Basophils Absolute Auto 0 /uL (0-100); Basophils Percent Auto 0.1 % (0-2); Eosinophils Absolute Auto 100 /uL (0-450); Hematocrit 27.9 % (36-46); Hemoglobin 9.2 g/dL (12.0-16.0); Lymphocytes Absolute Auto 900 /uL (1100-4500); Lymphocytes Percent Auto 15.3 % (25-40); Mean Corpuscular Hemoglobin 30.4 PG (26-34); Mean Corpuscular Volume 92.1 fL (80-100); Monocytes Absolute Auto 500 /uL (0-900); Monocytes Percent Auto 8.8 % (3-14); Neutrophils Absolute Auto 4600 /uL (1500-7000); Neutrophils Percent Auto 73.8 % (50-75); Platelet Count 297 X10^3/uL (150-400); Red Blood Cell Count 3.03 X10^6/uL (4.0-5.2); Red Cell Distribution Width 14.2 % (11.6-14.8); White Blood Cell Count 6.2 X10^3/uL (4.5-11.0)
[2021-04-16 06:43] LABS: BUN Creatinine Ratio 5.2 (6-22); Blood Urea Nitrogen 3 mg/dL (7-17); Calcium 7.9 mg/dL (8.4-10.2); Carbon Dioxide 26 mmol/L (22-32); Chloride 107 mmol/L (98-107); Estimated Glomerular Filt Rate > 60.0 mL/min (>60); Glucose 97 mg/dL (80-110); HEMOLYSIS < 15 (0-50); Potassium 3.1 mmol/L (3.4-5.1); Sodium 137 mmol/L (137-145)
[2021-04-16] MEDS: BUDESONIDE 0.5 MG/2 ML NEB INH ×2 (07:37→19:28)
[2021-04-16] MEDS: LOSARTAN 50 MG TABLET PO (08:00)
[2021-04-16] MEDS: METOPROLOL IR 25 MG TABLET PO ×2 (08:00→20:03)
[2021-04-16] MEDS: ALPRAZolam 0.5 MG TABLET PO (09:29)
--- NOTE | 2021-04-16 09:49 | PM.CN ---
History of Present Illness Consult details Date Patient Seen: 04/15/21 Time Patient Seen: 11:00 Chief complaint: Fever, UTI, diversion colitis Reason for consult: blood stool from rectum, abdominal pain Requesting provider: Arminda Morocho Narrative: New onset of blood and mucous from Bailey's stump. Patient carries the diagnosis of diversion colitis and presently has a diverting ileostomy with stomal hernia. She has not had a bad episode of colitis in years. Reports she declined reversal since they could not promise I would be cured. Her presentation originally still carries some doubt as to the etiology, but Crohn's was also entertained. She reports feeling unwell and anorexic for 2 months now. bloody rectal discharge started 24 hours ago. Her stoma does not have any bloody discharge. Meds Home Medications and Allergies Home Medications Medication Instructions Recorded Confirmed Type alprazolam 0.5 mg tablet 0.5 mg PO QID 02/22/18 04/13/21 History fluticasone 100 mcg-salmeterol 50 1 puff INHALATION BID 02/22/18 04/13/21 History mcg/dose blistr powdr for inhalation (Advair Diskus) losartan 50 mg tablet 50 mg PO DAILY 02/22/18 04/13/21 History sertraline 100 mg tablet 100 mg PO DAILY 02/22/18 04/13/21 History simvastatin 10 mg tablet 10 mg PO QPM 02/22/18 04/13/21 History metoprolol tartrate 25 mg tablet 25 mg PO BID 10/21/18 04/13/21 History levofloxacin 750 mg tablet 750 mg PO DAILY #7 tab 11/19/18 04/13/21 Rx (Levaquin) metronidazole 500 mg tablet 500 mg PO TID #21 tab 11/19/18 04/13/21 Rx (Flagyl) albuterol sulfate 90 mcg/actuation 1 puff INHALATION Q4-6H PRN #18 11/26/18 04/13/21 Rx aerosol inhaler gram Allergies Allergy/AdvReac Type Severity Reaction Status Date / Time ciprofloxacin [From Cipro] Allergy Verified 04/11/21 18:53 meperidine [From Demerol] Allergy Verified 04/11/21 18:53 Review of Systems Review of Systems ROS: Yes All systems reviewed with the patient and are negative except as otherwise documented Exam Vital Signs (past 8 hours): - 04/16/21 07:30 04/16/21 08:36 Temperature 98.6 F Pulse Rate 100 H Respiratory Rate 18 Blood Pressure 116/76 Pulse Oximetry 97 97 Oxygen Delivery Method Room Air Oxygen Flow Rate 0 Const General: cooperative and comfortable HENKY Head: normocephalic and atraumatic Ears: external ears normal Nose: external nose normal and nares normal Face and sinus: normal facial exam Eyes Sclera: sclerae normal Chest Chest: normal inspection of the chest Resp Effort & Inspection: normal respiratory effort and able to speak in complete sentences Cardio Rate: regular rate Rhythm: regular rhythm GI Inspection: visible herniation (stoma hernia w/o strangulation) Palpation: soft Other: stoma is healthy, stool is loose and brown Skin General: no rashes or lesions noted Neuro General: patient alert and patient oriented x3 Extrem General: normal to inspection Psych Appearance: grossly normal Judgment: judgment good Objective Labs Result Diagrams: 04/16/21 05:50 04/16/21 05:50 Labs: Laboratory Results - last 24 hr 04/14/21 04/16/21 04/16/21 03:45 05:50 05:50 WBC 6.2 RBC 3.03 L Hgb 9.2 L Hct 27.9 L MCV 92.1 MCH 30.4 MCHC 33.0 RDW 14.2 Plt Count 297 Neut % (Auto) 73.8 Lymph % (Auto) 15.3 L [place] % (Auto) 8.8 Eos % (Auto) 2.0 Baso % (Auto) 0.1 Neut # (Auto) 4600 Lymph # (Auto) 900 L [place] # (Auto) 500 Eos # (Auto) 100 Baso # (Auto) 0 Sodium 137 Potassium 3.1 L Chloride 107 Carbon Dioxide 26 BUN 3 L Creatinine 0.58 Estimated GFR > 60.0 BUN/Creatinine Ratio 5.2 L Glucose 97 Calcium 7.9 L Magnesium 2.0 Stl C. cayetanensis PCR Not detected Stool Rotavirus (PCR) Not detected Stool Adenovirus (PCR) Not detected Stool Astrovirus (PCR) Not detected Stool Cryptosporidium PCR Not detected Stl E.coli Shiga Tox PCR Not detected St Sh/Enteroin Ecoli PCR Not detected Stool E coli O157 PCR Not detected Stl Enterotoxigenic E PCR Not detected Stool EPEC (PCR) Not detected Stl E. histolytica PCR Not detected Stool Giardia Lamblia PCR Not detected Stool Sapovirus (PCR) Not detected Stl P. shigelloides PCR Not detected St Y.enterocolitica PCR Not detected Stool Vibrio (PCR) Not detected Stl Vibrio cholerae PCR Not detected Stl Enteroaggr Ecoli PCR Not detected Stl Norovirus GI/GII PCR Not detected Campylobacter (PCR) Not detected C. difficile Tox (PCR) Not detected Salmonella (PCR) Not detected Assessment & Plan Assessment & Plan narrative: H/o diverting ileostomy due to colitis that has been described as ischemic, Crohn's and or diversion. Now with bloody, mucous stool from the rectum and no evidence of bleeding into ileostomy. Feels unwell and poor appetite. 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 Plan: Hydration and observation. COVID-19 COVID-19 status: Negative Time Spent With Patient Time with patient: Greater than 35 minutes
--- NOTE | 2021-04-16 10:06 | PM.PN.1 ---
Subjective Subjective Date Patient Seen: 04/16/21 Time Patient Seen: 10:06 Exam Vital Signs (past 8 hours): - 04/16/21 07:30 04/16/21 08:36 Temperature 98.6 F Pulse Rate 100 H Respiratory Rate 18 Blood Pressure 116/76 Pulse Oximetry 97 97 Oxygen Delivery Method Room Air Oxygen Flow Rate 0 Const General: comfortable Orientation: alert and oriented x3 HENMT Head: normal to inspection Nose: external nose normal Eyes General: appearance normal, both eyes and all related structures Neck Neck: trachea midline Chest Chest: normal inspection of the chest Resp Effort & Inspection: normal respiratory effort and able to speak in complete sentences Cardio Rate: regular rate Rhythm: regular rhythm GI Palpation: soft Other: non reducible peristomal hernia, no acute abdomen. Skin General: no rashes or lesions noted Neuro General: patient alert and patient oriented x3 Extrem General: normal to inspection Psych Appearance: grossly normal Judgment: judgment good Objective Labs Result Diagrams: 04/16/21 05:50 04/16/21 05:50 Labs: Laboratory Results - last 24 hr 04/14/21 04/16/21 04/16/21 03:45 05:50 05:50 WBC 6.2 RBC 3.03 L Hgb 9.2 L Hct 27.9 L MCV 92.1 MCH 30.4 MCHC 33.0 RDW 14.2 Plt Count 297 Neut % (Auto) 73.8 Lymph % (Auto) 15.3 L [place] % (Auto) 8.8 Eos % (Auto) 2.0 Baso % (Auto) 0.1 Neut # (Auto) 4600 Lymph # (Auto) 900 L [place] # (Auto) 500 Eos # (Auto) 100 Baso # (Auto) 0 Sodium 137 Potassium 3.1 L Chloride 107 Carbon Dioxide 26 BUN 3 L Creatinine 0.58 Estimated GFR > 60.0 BUN/Creatinine Ratio 5.2 L Glucose 97 Calcium 7.9 L Magnesium 2.0 Stl C. cayetanensis PCR Not detected Stool Rotavirus (PCR) Not detected Stool Adenovirus (PCR) Not detected Stool Astrovirus (PCR) Not detected Stool Cryptosporidium PCR Not detected Stl E.coli Shiga Tox PCR Not detected St Sh/Enteroin Ecoli PCR Not detected Stool E coli O157 PCR Not detected Stl Enterotoxigenic E PCR Not detected Stool EPEC (PCR) Not detected Stl E. histolytica PCR Not detected Stool Giardia Lamblia PCR Not detected Stool Sapovirus (PCR) Not detected Stl P. shigelloides PCR Not detected St Y.enterocolitica PCR Not detected Stool Vibrio (PCR) Not detected Stl Vibrio cholerae PCR Not detected Stl Enteroaggr Ecoli PCR Not detected Stl Norovirus GI/GII PCR Not detected Campylobacter (PCR) Not detected C. difficile Tox (PCR) Not detected Salmonella (PCR) Not detected PFSH Medical History Asthma Essential hypertension History of ischemic bowel disease HTN (hypertension) Hyperlipidemia Surgical History H/O: hysterectomy Hx laparoscopic cholecystectomy Hx of colectomy Ileostomy present Ileostomy status Family History Mother Hypertension Stroke Brother Cancer Hypertension Father Medical history unknown Social History marital status: household members: spouse Smoking Status: Current every day smoker alcohol intake: former Assessment & Plan Assessment & Plan narrative: continued bloody discharge from rectum Plan: enema this pm and Flex sig tomorrow. NPO at midnight COVID-19 COVID-19 status: Negative Time Spent With Patient Time with patient: 15-24 minutes Quality VTE Deep Vein Thrombosis/Pulmonary Embolism Present on Admission: No
--- NOTE | 2021-04-16 10:58 | DIET.PN ---
Dietary Progress Note Assessment: 75y F admitted for fever and colitis referred to nutrition for ileostomy appropriate diet and screening for malnutrition. Pt has had her ileostomy since 2016, medical team not sure dx but leaning towards Crohns Disease. Pt states she generally manages well, tends to avoid dairy (secondary to bloating and air in ostomy appliance). Pt ate significant amount of sour cream last week prior to this current episode and pt has been worried about her partner and home finances, etc lately more than usual. Per Admission Assessment pt has normal nutrition status with no reduced appetite, wt loss, and Sharan Score 22. Pt had some vomiting/bloody BM from rectum and high output into ileostomy prior to admit awaiting flex sigmoid colonoscopy. Pts POs since calling down to kitchen for preferred meals is 50-100%. Pt is found not to have protein calorie malnutrition but remains high risk secondary to inflammatory GI process. If ostomy output remains high and POs fall <50% over next 48h RD to reassess for malnutrition and supportive nutrition care. Usual Day: B: pb toast L: almond milk smoothie D: soft cooked protein, white rice Pt desires more options for vegetables that are safe to eat. Labs: hgb 9.2 L, K+ 3.1 L, Mg 1.5 L, BUN 3 L HT: 171.4cm WT: 78kg UBW:77-82kg x3y BMI: 26.5 Nutrition Dx: altered nutrition related laboratory values (electrolytes) r/t high ileostomy output >48h aeb pt admitted c high ostomy output, Na 134 L, K+ 3.1 L, Mg 1.5 L, BUN 3 L, pt unaware of strategies to replete electrolytes during times of high output. Interventions: 1. Provided pt handout on suggestions for safe, ileostomy friendly, nutrient dense food choices with reminder to chew food well. 2. Provided pt Ileostomy Nutrition Therapy document for review on safe vs. foods to be cautious with. 3. Provided education on replenishing electrolytes during times of low PO and high ostomy output. Diet Order: no seeds/skins, dairy reduced Monitoring/Evaluation: POs, output
--- NOTE | 2021-04-16 14:07 | CM.DPC ---
DCP Cont: Per MD, pt still has some bleeding from rectum and febrile and likely to consult with GI at [facility]. Per Surgeon, pt to be NPO after midnight for Flex Sig scope scheduled for tomorrow. Pt not medically stable to d/c yet today. Pt still hopeful for d/c home with spouse when stable. Plan: SW to follow closely after scope tomorrow towards determining any d/c planning needs for hopeful d/c home with spouse at discharge and any further identified needs. CARLOS Byrd
--- NOTE | 2021-04-16 15:56 | PM.PN.1 ---
Subjective Subjective Interval history: Patient continues to feel poorly. She reports rectal bleeding in addition to mucus. She continues to have crampy and rectal bleeding. She states the bleeding is new as previously she only had mucus from her rectum without blood Exam Vital Signs (past 8 hours): - 04/16/21 08:36 04/16/21 11:41 04/16/21 12:00 Temperature 98.6 F 98 F Pulse Rate 100 H 85 91 H Respiratory Rate 18 18 18 Blood Pressure 116/76 112/52 L Pulse Oximetry 97 97 99 04/16/21 15:16 Temperature 97.8 F Pulse Rate 90 Respiratory Rate 18 Blood Pressure 117/58 L Pulse Oximetry 93 Oxygen Delivery Method Room Air Oxygen Flow Rate 0 Narrative Exam Narrative: ill appearing female lying in bed Resp Other: Lungs: clear to auscultation Cardio Other: CV: RRR nl Sl S2 GI Other: Abd: soft/ non tender/ iliostomy with liquid stool in bag Extrem Other: no edema Psych Other: no hallucinations Objective Labs Result Diagrams: 04/16/21 05:50 04/16/21 05:50 Labs: Laboratory Results - last 24 hr 04/16/21 04/16/21 05:50 05:50 WBC 6.2 RBC 3.03 L Hgb 9.2 L Hct 27.9 L MCV 92.1 MCH 30.4 MCHC 33.0 RDW 14.2 Plt Count 297 Neut % (Auto) 73.8 Lymph % (Auto) 15.3 L [place] % (Auto) 8.8 Eos % (Auto) 2.0 Baso % (Auto) 0.1 Neut # (Auto) 4600 Lymph # (Auto) 900 L [place] # (Auto) 500 Eos # (Auto) 100 Baso # (Auto) 0 Sodium 137 Potassium 3.1 L Chloride 107 Carbon Dioxide 26 BUN 3 L Creatinine 0.58 Estimated GFR > 60.0 BUN/Creatinine Ratio 5.2 L Glucose 97 Calcium 7.9 L Magnesium 2.0 PFSH Medical History Asthma Essential hypertension History of ischemic bowel disease HTN (hypertension) Hyperlipidemia Surgical History H/O: hysterectomy Hx laparoscopic cholecystectomy Hx of colectomy Ileostomy present Ileostomy status Family History Mother Hypertension Stroke Brother Cancer Hypertension Father Medical history unknown Social History marital status: household members: spouse Smoking Status: Current every day smoker alcohol intake: former Assessment & Plan Assessment & Plan narrative: Mary Payan is a 75 year old female with PMH of HTN, HLD, complex abdominal surgical history including partial colectomy with diverting ileostomy, complicated by hernia, not recommended for repair. 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 If no further improvement with zosyn therapy consider steroids as crohn's disease is listed as a possible differential per GI physician at [facility]. She had previously refused surgical interventions (resection). - would recommend follow up with her outpatient GI if discharged. She has not expressed interest thus far in surgical management. -appreciate Dr. Lubin's time and recommendations today. -discussed with Dr. Mcintosh ( GI) he recommends flex sig with biopsies. IF she continues to have diversion colitis, patient will need surgical revision of her iliostomy. 2. Urinary tract infection, acute, present on admission - on zosyn as noted above. 3. hyponatremia, hypomagnesemia, acute, present on admission - likely secondary to GI losses. now improved with IVF. -will continue to follow 4. Essential hypertension, chronic Continue home medications. 5. Hyperlipidemia, chronic Continue home dose of simvastatin 10 mg p.o. at bedtime 6. Panic disorder, chronic Continue home dose of sertraline 100 mg p.o. daily and alprazolam 0.5 mg p.o. q.i.d. as needed 7. hypokalemia-will replace VTE Prophylaxis: SCD/s Code status: DNR/DNI as discussed with the patient who identifies spouse Festus Payan as her surrogate and POA. I have utilized all available immediate resources (patient, family member, internal and external medical records) to obtain, update, or review the patient?s current home medications. Quality VTE Deep Vein Thrombosis/Pulmonary Embolism Present on Admission: No
[2021-04-16] MEDS: ATORVASTATIN 20 MG TABLET 10 MG PO (16:40)
[2021-04-16] MEDS: POTASSIUM CHLORIDE 20 MEQ TAB 40 MEQ PO (16:40)
[2021-04-16] MEDS: FLEETS ENEMA 2 EACH PR (17:22)
[2021-04-16] MEDS: ONDANSETRON 4 MG/2 ML INJ IV (18:15)
[2021-04-16] MEDS: SERTRALINE 50 MG TABLET 100 MG PO (20:03)
[2021-04-17] VITALS (18 sets, daily range): BP systolic 90–127; BP diastolic 39–72; PULSE 77–98; RESP 14–20; TEMP 36.1–38.2; O2SAT 93–98; BMI 26.5
--- NOTE | 2021-04-17 | PATH_ITS ---
[facility] Accession Number: [id number] . 01 Material submitted: . rectum - RECTAL . 02 Diagnosis: Rectum, Biopsies: Ulcerated colonic mucosa. Please see comment. Negative for granulomas, dysplasia, and malignancy. [facility] 04/23/2021 1647 Local . 02 Comment: The rectal biopsy shows markedly ulcerated colonic mucosa with scattered foreign body giant cells in a background of chronic active inflammation, including abundant lymphocytes and plasma cells in the lamina propria. No obvious viral cytopathic effects or parasitic organisms are identified. A CMV immunohistochemical stain is negative for CMV antigen. There is no evidence of endometriosis or malakoplakia, confirmed by immunohistochemistry and special stains. The morphologic appearance could be compatible with the clinical history of diversion colitis (per report), however, infection, medication related mucosal injury, or idiopathic inflammatory bowel disease cannot be completely excluded. . 02 Electronically signed: . Alanna Kulkarni MD, Pathologist NPI- [id number] . 01 Gross description: . RECTAL: Received in formalin are 4 fragment(s) of mercado, soft tissue measuring 0.5 x 0.2 x 0.2 cm to 0.1 x 0.1 x 0.1 cm submitted entirely in 1 cassette(s) /ANKIT 04/18/2021 0407 Local . 02 Microscopic: . Special stains and immunohistochemical stains were performed to characterize cells of interest. All control stains showed appropriate reactivity. . Results: CD10: Negative in stromal cells. PAX-8: Negative in epithelial cells. CMV: Negative. PAS Stain: Negative. Calcium: Negative. . Interpretation: The absence of CD10 positive stromal cells or PAX-8 positive epithelial cells mitigates against an interpretation of endometriosis. There is no evidence of CMV antigen by immunohistochemistry. Negative PAS and calcium stains mitigate against an interpretation of malakoplakia. . * This test was developed and its performance characteristics determined by [facility]. It has not been cleared or approved by the U.S. Food and Drug Administration. The FDA has determined that such clearance or approval is not necessary. This test is used for clinical purposes. It should not be regarded as investigational or for research. . . . . . . 02 Pathologist provided ICD-10: K52.9 . 02 CPT . 257085, 652688, 379103, G76376, E99750 Performed at: 01 [facility] [address] [place] [address] [id number] MD Declan Stoddard MD Phone: [phone] Performed at: 02 [facility] [id number] [place] [address] [id number] MD Alanna Kulkarni MD Phone: [phone]
[2021-04-17] MEDS: PIPERACILLIN/TAZO 3.375 GM in SODIUM CHLORIDE 0.9% 100 ML 25 ML IV ×2 (00:32→09:07)
[2021-04-17] MEDS: ALPRAZolam 0.5 MG TABLET PO (00:57)
[2021-04-17 06:14] LABS: Add Manual Diff / Slide Review NO; Basophils Absolute Auto 0 /uL (0-100); Basophils Percent Auto 0.1 % (0-2); Eosinophils Absolute Auto 100 /uL (0-450); Eosinophils Percent Auto 1.2 % (2-4); Hemoglobin 9.4 g/dL (12.0-16.0); Lymphocytes Absolute Auto 500 /uL (1100-4500); Lymphocytes Percent Auto 6.8 % (25-40); Mean Corpuscular HGB Conc 33.4 % (30-36); Mean Corpuscular Hemoglobin 30.5 PG (26-34); Mean Corpuscular Volume 91.2 fL (80-100); Monocytes Absolute Auto 700 /uL (0-900); Monocytes Percent Auto 8.7 % (3-14); Neutrophils Absolute Auto 6600 /uL (1500-7000); Neutrophils Percent Auto 83.2 % (50-75); Platelet Count 339 X10^3/uL (150-400); Red Blood Cell Count 3.07 X10^6/uL (4.0-5.2); Red Cell Distribution Width 14.3 % (11.6-14.8); White Blood Cell Count 7.9 X10^3/uL (4.5-11.0)
[2021-04-17] MEDS: ACETAMINOPHEN 325 MG TABLET 650 MG PO (06:16)
[2021-04-17] MEDS: ALBUTEROL 2.5 MG/3 ML NEB (ADULT) INH ×2 (06:20→14:19)
[2021-04-17] MEDS: BUDESONIDE 0.5 MG/2 ML NEB INH (06:21)
[2021-04-17 06:25] LABS: BUN Creatinine Ratio 6.6 (6-22); Blood Urea Nitrogen 4 mg/dL (7-17); Calcium 8.1 mg/dL (8.4-10.2); Carbon Dioxide 28 mmol/L (22-32); Chloride 106 mmol/L (98-107); Estimated Glomerular Filt Rate > 60.0 mL/min (>60); Glucose 100 mg/dL (80-110); HEMOLYSIS < 15 (0-50); Potassium 3.2 mmol/L (3.4-5.1); Sodium 137 mmol/L (137-145)
[2021-04-17 06:40] LABS: Prealbumin 6.8 mg/dL (17.6-36.0)
[2021-04-17 06:48] LABS: C-Reactive Protein Quant 21.3 mg/dL (<1.0)
[2021-04-17] MEDS: LOSARTAN 50 MG TABLET PO (09:08)
[2021-04-17] MEDS: METOPROLOL IR 25 MG TABLET PO (09:09)
--- NOTE | 2021-04-17 10:30 | PC.NURSE ---
@1025 pt transferred to OR via stretcher BTs hypoactive; ileostomy draining green to bag; pt passing gas; tele SR
[2021-04-17] MEDS: LACTATED RINGERS 1,000 ML 100 ML IV (10:32)
--- NOTE | 2021-04-17 10:37 | SUR.HOLD ---
npo since MN
--- NOTE | 2021-04-17 10:58 | PM.PREOP ---
Pre-operative Note COVID-19 COVID-19 status: Negative Interval Note History & Physical reviewed/Exam performed by Physician: Yes Changes to H&P: No H&P completed within 30 days and has changed as indicated here:: continues to have blood per rectum ASA Class (for procedural sedation): II
[2021-04-17] MEDS: LIDOCAINE JELLY 2% 5 ML 1 APPLIC TOP (11:10)
[2021-04-17] MEDS: MIDAZOLAM 5 MG/5 ML VIAL IV (11:15)
[2021-04-17] MEDS: fentaNYL 250 MCG/5 ML INJ IV (11:16)
[2021-04-17] MEDS: ONDANSETRON 4 MG/2 ML INJ IV (11:16)
--- NOTE | 2021-04-17 11:26 | P.OP.ENDO_ITS ---
Operative Date/Time/Diagnoses Date of procedure: 04/17/21 Time of procedure: 11:26 Pre-op diagnosis: colitis in rectal stump Post-op diagnosis: same Procedure & Clinicians Study performed: Flexible sigmoidoscopy with cold forceps biopsy Same procedure as scheduled: Yes Indications: Rectal stump colitis Surgeon: Gabrielle Lubin Procedure Notes SCOAP/Timeout: Done Procedure in detail: Preop diagnosis rectal bleeding in a long Daren's with CT scan consistent with colitis Postop diagnosis: Same Operative procedure: Flexible sigmoidoscopy with moderate sedation Surgeon: Marlee Lubin MD Anesthetic fentanyl 125 micro g Versed 4 mg Findings: Diffuse homogeneous colitis from anus to end of the stump. Cold forceps biopsies taken Procedure: Patient placed in lateral position. Rectal exam was performed sh owing increased tone no masses. Colonoscope inserted into rectum and advanced to the end of the stump without complication or difficulty. Soft insufflation with cold forceps biopsies were done. Scope was removed. Impression: Colitis of the rectal stump Plan: Await pathology, recommend steroid treatment and observation. Sedation minutes: 9 Findings: colitis Specimen(s): other (rectal mucosal tissue) Complications: none Impression: rectal stump 20-25 cm. Colitis. Await biopsy results. Post-procedure Recommendations: Prescription for (steroids) Plan for aftercare: acute care bed Disposition: PACU
--- NOTE | 2021-04-17 11:35 | SUR.PHASEI ---
report given to kyle RODRIGUEZ.
[2021-04-17] MEDS: predniSONE 20 MG TABLET 40 MG PO (12:54)
--- NOTE | 2021-04-17 15:20 | CM.DPC ---
DCP: continued: Case received, EMR reviewed. Noted the change from OBS admissions status with a change to INPT status on 04/16. Payer: Medicare, Commercial and BCBS [place] Pt has a complex medical history and has received care in past at [facility]. She has an iliostomy as the result of a prior surgery. Dr. Morocho discussed case with Dr. Mcintosh ( GI) who recommended a flexible sigmoidoscopy with biopsies. Dr. Lubin took pt to her OR for this procedure today. IF pt continues to have diversion collitis Dr. Mcintosh says she will need a revision of her iliostomy. Dr. Morocho says this would likely mean a followup with GI in the outpt setting. P: will follow up tomorrow. It is noted that pt lives in an RV with her spouse ( had sold their home with intent to travel but health challenges have changed this plan for now.)
[2021-04-17] MEDS: ATORVASTATIN 20 MG TABLET 10 MG PO (17:16)
--- NOTE | 2021-04-17 18:19 | PM.DS.1 ---
History of Present Illness History of Present Illness Chief complaint: Fever, UTI, diversion colitis Narrative: Mary Payan is a pleasant 75 y.o. female with hypertension, hyperlipidemia, panic disorder, asthma/COPD, and a history and ileostomy due to a necrotic bowel resection and anastomosis done in 2016 presented with a one-week history of increased ileostomy output, fever, increased rectal stooling, nausea and vomiting and concentrated urine. She is being requested by the emergency department for admission for colitis. Patient states that she has had a fever that ranges from 100.3 to 100.8, she has had a poor appetite. She denies chills, difficulty swallowing, chest pain, shortness of breath, she does endorse having a large ventral hernia underneath her ileostomy. CT of the abdomen and pelvis indicated ? Diffuse circumferential wall thickening with mild adjacent inflammation involving the colon compatible with nonspecific colitis. Differential diagnosis includes inflammatory processes, infection and less likely ischemic or neoplastic processes. The report also identified both a large and small hernia with loops of unremarkable bowel. Patient's T-max was 100.3? and currently is 99.6, blood pressure 108/60, heart rate 99, respiratory rate 24, oxygen saturation 96% on room air, she weighs 78.4 kg with a BMI of 26.6. CBC is unremarkable except for mild anemia with a hemoglobin of 10.0 and hematocrit of 30, sodium 134, rest of her life her lytes are within normal limits, magnesium was 1.5, albumin was 3.4, calcium was 7.9, but the corrected calcium is 8.4 which is normal, and procalcitonin was elevated at 0.84. C difficile PCR is negative, U/A just returned positive and stool cultures are pending. Approximately 2 years ago she was evaluated by Dr. Casey regarding reversal of her ileostomy and the ventral hernia repair. In her note she declined to pursue surgery due to the fact that the patient had had wound healing by intention rather than surgical closure and that the surgery was likely too complicated and would require meshes that were not available here at this facility and recommended that the patient be further evaluated and treated at [facility] where she had her original surgery. Discharge Providers Provider Date of admission: 04/16/21 14:24 Discharge Date: 04/17/21 Primary care physician: Matt Bernard MD Consults: 04/14/21 04:33 Consult to Dietitian, Adult Routine Comment: Reason For Exam: Illeostomy appropriate diet 04/14/21 06:11 Consult to Ostomy Specialist Routine Comment: Colitis Consulting Provider: 04/16/21 10:14 Consult to Dietitian, Adult Routine Comment: Reason For Exam: protein malnutrition Discharge provider: Arminda Morocho MD Summary Hospital Course Discharge Diagnosis: 1. Acute colitis 2. Hematochezia secondary to acute colitis 3. Asthma 4. Hypertension 5. Hyperlipidemia 6. History of ischemic bowel disease 7. History of diverting iliostomy Hospital Course: The patient was admitted to the hospital for rectal bleeding. There was concern that she had diversion colitis. The patient was placed on IV antibiotics. She continued to have significant rectal bleeding. Despite that she did not require blood transfusions. The patient underwent a flexible sigmoidoscopy after bowel prep.Colitis of the rectal stump The patient was started on steroids. He reported with the steroid treatment she had decrease and rectal bleeding. Patient's diet was advanced which she tolerated. She was deemed appropriate for discharge and arrangements were made for her to discharge home. The patient will follow-up with Dr. Lubin as an outpatient for the results of her biopsies obtained during the flexible sigmoidoscopy. She would be discharged home on a prednisone taper. In addition the patient was counseled regarding her diet to eliminate dairy, high-fiber foods, and to eat as tolerated. She will follow-up with her PCP as well as a general surgery within 1 week. At the time of discharge patient was appropriate for discharge home. Status at Discharge Cognitive/behavioral status at discharge: oriented Functional status at discharge: independent ambulation Overall status at discharge: patient is back to baseline Exam Vital Signs (past 8 hours): - 04/17/21 10:33 04/17/21 11:24 04/17/21 11:28 Temperature 98.9 F 98.5 F Pulse Rate 91 H 88 86 Respiratory Rate 16 16 16 Blood Pressure 115/65 103/44 L 90/43 L Pulse Oximetry 98 93 93 04/17/21 11:34 04/17/21 11:39 04/17/21 11:44 Temperature 97.0 F L Pulse Rate 86 82 82 Respiratory Rate 14 17 18 Blood Pressure 93/39 L 104/44 L 95/45 L Pulse Oximetry 94 95 95 04/17/21 11:59 04/17/21 12:00 04/17/21 13:15 Temperature 98.0 F 98.6 F Pulse Rate 79 84 77 Respiratory Rate 19 20 18 Blood Pressure 107/47 L 105/65 122/62 Pulse Oximetry 97 96 97 04/17/21 13:45 04/17/21 14:22 04/17/21 15:35 Temperature 98 F 98.3 F Pulse Rate 86 88 94 H Respiratory Rate 18 16 16 Blood Pressure 113/64 99/67 Pulse Oximetry 97 98 94 Oxygen Delivery Method Room Air Oxygen Flow Rate 0 Narrative Exam Narrative: Pleasant female resting comfortably in no obvious distress Resp Other: Lungs clear to auscultation Cardio Other: Cardiac exam: Regular rate and rhythm normal S1-S2 with a 2/6 systolic ejection murmur GI Other: Abdomen soft and nontender, ileostomy in place, liquid stool in the bed Extrem Other: Extremities: No edema Objective Labs Result Diagrams: 04/17/21 05:38 04/17/21 05:38 Labs: Laboratory Results - last 24 hr 04/17/21 04/17/21 04/17/21 05:38 05:38 05:38 WBC 7.9 RBC 3.07 L Hgb 9.4 L Hct 28.0 L MCV 91.2 MCH 30.5 MCHC 33.4 RDW 14.3 Plt Count 339 Neut % (Auto) 83.2 H Lymph % (Auto) 6.8 L [place] % (Auto) 8.7 Eos % (Auto) 1.2 L Baso % (Auto) 0.1 Neut # (Auto) 6600 Lymph # (Auto) 500 L [place] # (Auto) 700 Eos # (Auto) 100 Baso # (Auto) 0 Sodium 137 Potassium 3.2 L Chloride 106 Carbon Dioxide 28 BUN 4 L Creatinine 0.61 Estimated GFR > 60.0 BUN/Creatinine Ratio 6.6 Glucose 100 Calcium 8.1 L C-Reactive Protein 21.3 H Prealbumin 6.8 L PFSH Medical History Asthma Essential hypertension History of ischemic bowel disease HTN (hypertension) Hyperlipidemia Surgical History H/O: hysterectomy Hx laparoscopic cholecystectomy Hx of colectomy Ileostomy present Ileostomy status Family History Mother Hypertension Stroke Brother Cancer Hypertension Father Medical history unknown Social History marital status: household members: spouse Smoking Status: Current every day smoker alcohol intake: former Discharge Assessment & Plan Assessment and Plan Assessment: 1. Acute colitis Plan of Treatment: Prednisone taper, follow-up with Dr. Lubin for results of biopsy results Discharge Plan Discharge Plan Patient Disposition: Home Discharge orders & Medications Prescriptions: New prednisone 20 mg Tablet 40 mg PO DAILY Qty: 7 RF: 0 Continued losartan 50 mg tablet 50 mg PO DAILY RF: 0 sertraline 100 mg tablet 100 mg PO DAILY RF: 0 simvastatin 10 mg tablet 10 mg PO QPM RF: 0 alprazolam 0.5 mg tablet 0.5 mg PO QID RF: 0 fluticasone propion-salmeterol [Advair Diskus] 100-50 mcg/dose blister with device 1 puff Inhalation BID RF: 0 metoprolol tartrate 25 mg tablet 25 mg PO BID RF: 0 albuterol sulfate 90 mcg/actuation HFA aerosol inhaler 1 puff INHALATION Q4-6H PRN (Reason: shortness of breath or wheezing) Qty: 18 RF: 0 Discontinued metronidazole [Flagyl] 500 mg tablet 500 mg PO TID Qty: 21 RF: 0 levofloxacin [Levaquin] 750 mg tablet 750 mg PO DAILY Qty: 7 RF: 0 Follow up/Referrals: Matt Bernard MD [Primary Care Provider] - Discharge Data Primary Care Provider: Matt Bernard Quality VTE Deep Vein Thrombosis/Pulmonary Embolism Present on Admission: No
--- NOTE | 2021-04-17 18:21 | PC.NURSE ---
Nursing note. I assumed responsibility for pt around 1630. pt AO and receptive to care. IND in room. Reporting tolerable 4/10 pain to general ABD area with bloating which pt associates with colonoscopy. Caring for ileostomy IND. Tele: NSR. Full liquid diet at dinner and tolerated well. Dr. Morocho saw pt and plans to DC tonight.
== END 2021-04-17 19:45 | disposition home or self-care (01) | DRG 392 ==
LOC: ED 04-14 00:48 → AC 04-14 02:51
PROVIDERS: Internal Medicine; Surgery; Admitting Provider Nurse Practitioner Family; Emergency Provider Emergency Medicine; PCP Internal Medicine; Referring Provider Emergency Medicine; Visit Provider Nurse Practitioner Family
PROC: 0DJD8ZZ Inspection of Lower Intestinal Tract, Via Natural or Artificial Opening Endoscopic (ICD-10-PCS; CPT 45378; principal; 2021-04-17 11:30)
DX: K52.9 Noninfective gastroenteritis and colitis, unspecified (principal); E87.1 Hypo-osmolality and hyponatremia; K92.1 Melena; E78.5 Hyperlipidemia, unspecified; I10 Essential (primary) hypertension; E83.42 Hypomagnesemia; F41.0 Panic disorder [episodic paroxysmal anxiety]; J44.9 Chronic obstructive pulmonary disease, unspecified; F17.210 Nicotine dependence, cigarettes, uncomplicated; Z20.822 Contact with and (suspected) exposure to COVID-19
CPT/HCPCS: 36415; 36592; 71045; 74177; 80048; 80053; 81001; 83605; 83690; 83735; 84134; 84145; 85025; 86140; 87040; 87493; 87507; 87635; 93005; 94150; 94640; 94762; 96361; 96365; 96375; 99284; 99406; C9803; G0378; A9270; J1642; J1650; J1885; J2250; J2405; J2543; J3010; J3475; J7613; Q9967

== ENCOUNTER → 2023-02-18 12:44 | Outpatient (CLI) | payer MEDICARE, OTHER, SELFPAY ==
[2021-04-14 03:44] VITALS: BMI 26.6
[2023-02-18 13:01] LABS: Add Manual Diff / Slide Review NO; Basophils Absolute Auto 100 /uL (0-100); Basophils Percent Auto 1.2 % (0-2); Eosinophils Absolute Auto 300 /uL (0-450); Eosinophils Percent Auto 3.9 % (2-4); Hematocrit 34.9 % (36-46); Hemoglobin 11.7 g/dL (12.0-16.0); Lymphocytes Absolute Auto 1600 /uL (1100-4500); Lymphocytes Percent Auto 23.2 % (25-40); Mean Corpuscular HGB Conc 33.6 % (30-36); Mean Corpuscular Volume 89.3 fL (80-100); Monocytes Absolute Auto 600 /uL (0-900); Monocytes Percent Auto 8.3 % (3-14); Neutrophils Absolute Auto 4200 /uL (1500-7000); Neutrophils Percent Auto 63.4 % (50-75); Platelet Count 512 X10^3/uL (150-400); Red Blood Cell Count 3.91 X10^6/uL (4.0-5.2); Red Cell Distribution Width 14.3 % (11.6-14.8); White Blood Cell Count 6.7 X10^3/uL (4.5-11.0)
[2023-02-18 13:17] LABS: BUN Creatinine Ratio 10.8 (6-22); Blood Urea Nitrogen 9 mg/dL (7-17); Calcium 9.2 mg/dL (8.4-10.2); Carbon Dioxide 35 mmol/L (22-32); Chloride 93 mmol/L (98-107); Estimated Glomerular Filt Rate > 60 mL/min (>60); Glucose 97 mg/dL (80-110); HEMOLYSIS < 15 (0-50); Potassium 4.3 mmol/L (3.4-5.1); Sodium 134 mmol/L (137-145)
== END ==
PROVIDERS: PCP Internal Medicine; Referring Provider General Practice; Visit Provider General Practice
DX: K43.5 Parastomal hernia without obstruction or gangrene (principal)
CPT/HCPCS: 36415; 80048; 85025